=== PATIENT | female | born 1970 | race Caucasian/White ===

== ENCOUNTER 2017-02-07 19:03 | Emergency (ER) | payer SELFPAY ==
[~2017-02-07] VITALS: Ht 172.7 cm; Wt 92.0 kg
[~2017-02-07 19:03] MED LIST: CLON0.2T PO; COUM10TA PO; DICY1TAB26 PO; PROM25SU8 PO
[2017-02-07] MEDS ORDERED: IOHEXOL 350 MG/ML 10 ML VIAL (for RAD DIAG) IVCONTRAST ONE (19:04)
[2017-02-07 19:05] VITALS: BP 207/91; PULSE 87; RESP 18; TEMP 98.1; O2SAT 98
[2017-02-07] MEDS ORDERED: SODIUM CHLOR 0.9% 1000 ML INJ 1,000 ML IV SCH (20:22)
[2017-02-07] MEDS ORDERED: SODIUM CHLORIDE 0.9% FLUSH 10 ML FLUSH IV FLUSH PRN (20:30)
[2017-02-07] MEDS ORDERED: ONDANSETRON HCL 4 MG/2 ML VIAL IVP ONE (20:30)
[2017-02-07] MEDS ORDERED: MORPHINE SULFATE 4 MG/ML INJ IV PUSH ONE ×2 (20:30→22:15)
--- NOTE | 2017-02-07 20:30 | PD ---
HPI Chief Complaint: Abdominal Pain Time Seen by Provider: 20:18 Travel History International Travel<30 days: No Contact w/Intl Traveler<30days: No Traveled to known affect area: No History of Present Illness HPI 46-year-old female with PMH of CAD S/P stenting, HTN on Plavix presents to the ED for evaluation of sudden onset, 810, constant right lower quadrant abdominal pain. She endorses accompanying nausea and vomiting. She denies recent history of fever, chills, chest pain, palpitations, anorexia, changes in bowel habits, melena, hematochezia, dysuria, back pain. She endorses history of kidney stones but states this pain is not the same. She denies risk of , states that she had a tubal ligation. No treatment attempted at home. She does not currently have a primary care provider. PFSH Past Medical History Hx Anticoagulant Therapy: Yes Arthritis: No Blood Disorders: No Heart Rhythm Problems: No Cancer: No Cardiovascular Problems: Yes (htn, mi, cardiac stents x6) High Cholesterol: No Chest Pain: No Congestive Heart Failure: No Cerebrovascular Accident: No Diabetes: No Diminished Hearing: No Deep Vein Thrombosis: Yes (RT LEG) Endocrine: No Gastrointestinal Disorders: Yes GERD: Yes Genitourinary: No Headaches: Yes Hepatitis: No Hiatal Hernia: No Hypertension: Yes Immune Disorder: No Kidney Stones: Yes Musculoskeletal: No Neurologic: Yes Psychiatric: No Respiratory: No Migraines: No Myocardial Infarction: No Renal Failure: No Seizures: Yes (DUE TO HIGH FEVER) Thyroid Disease: No Ulcer: No ?: Not : 3 Para: 3 Tubal Ligation: Yes Past Surgical History Abdominal Surgery: Yes (SHUNT X 5) AICD: No Cardiac Surgery: No Cholecystectomy: Yes Ear Surgery: No Endocrine Surgery: No Eye Surgery: No Genitourinary Surgery: No Gynecologic Surgery: No Joint Replacement: No Neurologic Surgery: Yes (EXCISION BENIGN BRAIN TUMOUR WITH PERITONEAL SHUNT PLACEMANT AND REVISION) Oral Surgery: No Pacemaker: No Thoracic Surgery: No Other Surgery: Yes (2 STENTS PLACEMENT AND FILTER PER PT.) Social History Alcohol Use: No Tobacco Use: No (quit 2009) Substance Use: No Allergies-Medications (Allergen,Severity, Reaction): Coded Allergies: codeine (Verified Allergy, Severe, RASH, N/V, 02/07/17) phenobarbital (Verified Allergy, Severe, 02/07/17) Reported Meds & Prescriptions Reported Meds & Active Scripts Active Tramadol (Tramadol HCl) 50 Mg Tab 50 Mg PO Q8H PRN Zofran Odt (Ondansetron Odt) 4 Mg Tab 4 Mg SL Q8HR PRN Reported Aspirin 325 Mg Tab 325 Mg PO DAILY Norvasc (Amlodipine Besylate) 10 Mg Tab 10 Mg PO DAILY Lisinopril 40 Mg Tab 40 Mg PO DAILY Plavix (Clopidogrel Bisulfate) 75 Mg Tab 75 Mg PO DAILY Review of Systems Except as stated in HPI: all other systems reviewed are Neg Physical Exam Narrative GENERAL: Obese white female in no acute distress. SKIN: Focused skin assessment warm/dry. HEAD: Normocephalic. EYES: No scleral icterus. No injection or drainage. NECK: Supple, trachea midline. No JVD or lymphadenopathy. CARDIOVASCULAR: Regular rate and rhythm without murmurs, gallops, or rubs. RESPIRATORY: Breath sounds clear and equal bilaterally. No accessory muscle use. GASTROINTESTINAL: Abdomen soft, nondistended. Tender to palpation in the right lower quadrant and right flank. Hypoactive bowel sounds. MUSCULOSKELETAL: No cyanosis, or edema. BACK: Nontender without obvious deformity. No CVA tenderness. Data Data Last Documented VS Vital Signs Date Time Temp Pulse Resp B/P (MAP) Pulse Ox O2 Delivery O2 Flow Rate FiO2 02/07/17 20:38 18 99 Room Air 02/07/17 19:05 98.1 87 Orders Orders Complete Blood Count With Diff (02/07/17 20:22) Comprehensive Metabolic Panel (02/07/17 20:22) Lipase (02/07/17 20:22) Lactic Acid (02/07/17 20:22) Urinalysis - C+S If Indicated (02/07/17 20:22) Ct Abd/Pel W Iv Contrast(Rout) (02/07/17 20:22) Iv Access Insert/Monitor (02/07/17 20:22) Ecg Monitoring (02/07/17 20:22) Oximetry (02/07/17 20:22) Morphine Inj (Morphine Inj) (02/07/17 20:30) Ondansetron Inj (Zofran Inj) (02/07/17 20:30) Sodium Chlor 0.9% 1000 Ml Inj (Ns 1000 M (02/07/17 20:22) Sodium Chloride 0.9% Flush (Ns Flush) (02/07/17 20:30) Ed Urine Pregnancytest Poc (02/07/17 20:22) Iohexol 350 Inj (Omnipaque 350 Inj) (02/07/17 19:04) Morphine Inj (Morphine Inj) (02/07/17 22:15) Mandatory Outpatient Referral (02/07/17 22:04) Ed Discharge Order (02/07/17 22:19) Labs Laboratory Tests Test 02/07/17 20:40 White Blood Count 8.1 TH/MM3 Red Blood Count 4.74 MIL/MM3 Hemoglobin 14.0 GM/DL Hematocrit 42.0 % Mean Corpuscular Volume 88.4 FL Mean Corpuscular Hemoglobin 29.6 PG Mean Corpuscular Hemoglobin Concent 33.4 % Red Cell Distribution Width 13.9 % Platelet Count 258 TH/MM3 Mean Platelet Volume 7.6 FL Neutrophils (%) (Auto) 67.0 % Lymphocytes (%) (Auto) 22.7 % Monocytes (%) (Auto) 7.5 % Eosinophils (%) (Auto) 2.1 % Basophils (%) (Auto) 0.7 % Neutrophils # (Auto) 5.4 TH/MM3 Lymphocytes # (Auto) 1.8 TH/MM3 Monocytes # (Auto) 0.6 TH/MM3 Eosinophils # (Auto) 0.2 TH/MM3 Basophils # (Auto) 0.1 TH/MM3 CBC Comment DIFF FINAL Differential Comment Urine Color LIGHT-YELLOW Urine Turbidity HAZY Urine pH 7.0 Urine Specific [place] 1.014 Urine Protein NEG mg/dL Urine Glucose (UA) NEG mg/dL Urine Ketones NEG mg/dL Urine Occult Blood TRACE Urine Nitrite NEG Urine Bilirubin NEG Urine Urobilinogen LESS THAN 2.0 MG/DL Urine Leukocyte Esterase SMALL Urine RBC 2 /hpf Urine WBC 3 /hpf Urine Squamous Epithelial Cells 8 /hpf Urine Bacteria RARE /hpf Microscopic Urinalysis Comment CULT NOT INDICATED Blood Urea Nitrogen 12 MG/DL Creatinine 0.87 MG/DL Random Glucose 104 MG/DL Total Protein 7.2 GM/DL Albumin 3.6 GM/DL Calcium Level 8.4 MG/DL Alkaline Phosphatase 90 U/L Aspartate Amino Transf (AST/SGOT) 28 U/L Alanine Aminotransferase (ALT/SGPT) 89 U/L Total Bilirubin 0.4 MG/DL Sodium Level 137 MEQ/L Potassium Level 3.8 MEQ/L Chloride Level 103 MEQ/L Carbon Dioxide Level 26.8 MEQ/L Anion Gap 7 MEQ/L Estimat Glomerular Filtration Rate 69 ML/MIN Lactic Acid Level 1.1 mmol/L Lipase 94 U/L [facility] Medical Decision Making Medical Screen Exam Complete: Yes Emergency Medical Condition: Yes Differential Diagnosis Appendicitis versus nephroureterolithiasis versus cystitis versus bowel obstruction versus ovarian torsion versus ectopic versus other Narrative Course 46 -year-old female with PMH of CAD S/P stenting, HTN on Plavix presents to the ED for evaluation of sudden onset, 8/10, constant right lower quadrant abdominal pain with accompanying nausea and vomiting. She denies recent history of fever, chills, chest pain, palpitations, anorexia, changes in bowel habits, melena, hematochezia, dysuria, back pain, risk of . She endorses history of kidney stones but states this pain is not the same. No PCP. Vitals reviewed. Patient is hypertensive on presentation. Physical exam reveals an obese white female in no acute distress. She does have tenderness to palpation in the right lower quadrant and right flank but the exam is otherwise unremarkable. IV was established. Patient was administered 4 mg morphine, 4 mg Zofran, 1 L normal saline IV. CBC: No leukocytosis or anemia. CMP: No concerning abnormalities Lipase: 94 Lactic acid: 1.4 UA: No culture indicated ED UPT: negative CT abdomen and pelvis: Fluid or cystic mass of the endometrial canal of uncertain etiology per radiology read. Discussed the results of the workup with the patient. She states that she had a similar problem approximately 6 weeks ago and underwent a D&C. She states that "my cervix is narrow." Unsure if this is the source of her abdominal pain , she said she did not have symptoms like this previously. We'll prescribe a short course of antiemetics and tramadol. I warned the patient this could be a very early appendicitis and that she should return to the ED should her symptoms worsen, especially including fever. States she does not have insurance or a physician. A mandatory outpatient consult was placed with gynecology. I informed her of the mandatory consult process. Patient indicated understanding of instructions and is agreeable care plan. She is stable and discharged home. Diagnosis Primary Impression: Abdominal pain Qualified Codes: R10.31 - Right lower quadrant pain Referrals: Didi Pillai MD Patient Instructions: Abdominal Pain (ED), General Instructions Additional Instructions: Rest, hydrate. Take pain and nausea medications as prescribed. Do not drive while taking pain medications. A cystic mass has been found in your uterus. This will need follow-up by the web master. A mandatory outpatient consult has been placed.. You can expect a phone call from either the doctor's office or the hospital in a few days to arrange an appointment. Return to the ED for worsening symptoms or any urgent or emergent medical condition. Med/Other Pt SpecificInfo: Prescription(s) given Scripts Tramadol (Tramadol) 50 Mg Tab 50 MG PO Q8H Y for PAIN, #10 TAB 0 Refills Prov: Alexander Ontiveros MD 02/07/17 Ondansetron Odt (Zofran Odt) 4 Mg Tab 4 MG SL Q8HR Y for Nausea/Vomiting, #15 TAB 0 Refills Prov: Alexander Ontiveros MD 02/07/17 Disposition: 01 DISCHARGE HOME Condition: Stable Jes Sims Feb 07, 2017 20:30
[2017-02-07 20:38] VITALS: RESP 18; O2SAT 99
[2017-02-07 20:47] LABS: AUTOMATED NEUTROPHIL # 5.4 TH/MM3 (1.8-7.7); BASOPHIL # 0.1 TH/MM3 (0-0.2); BASOPHIL % 0.7 % (0.0-2.0); EOSINOPHIL # 0.2 TH/MM3 (0-0.4); EOSINOPHIL % 2.1 % (0.0-4.0); HEMO FLAGS DIFF FINAL; LYMPH % 22.7 % (9.0-44.0); LYMPHOCYTE # 1.8 TH/MM3 (1.0-4.8); MEAN CELL VOLUME 88.4 FL (80.0-100.0); MEAN CORPUSCULAR HEMOGLOBIN 29.6 PG (27.0-34.0); MEAN CORPUSCULAR HGB CONC 33.4 % (32.0-36.0); MONO % 7.5 % (0.0-8.0); PLATELET COUNT 258 TH/MM3 (150-450); RED BLOOD COUNT 4.74 MIL/MM3 (4.00-5.30); RED CELL DISTRIBUTION WIDTH 13.9 % (11.6-17.2); WHITE BLOOD COUNT 8.1 TH/MM3 (4.0-11.0)
[2017-02-07 20:49] LABS: BACTERIA, URINE RARE /hpf; BLOOD, URINE TRACE (NEG); GLUCOSE,URINE NEG (NEG); KETONE, URINE NEG (NEG); NITRITE,URINE NEG (NEG); SQUAMOUS EPITHELIAL CELL URINE 8 /hpf (0-5); URINE COLOR LIGHT-YELLOW (YELLW/STRAW)
[2017-02-07 20:50] LABS: COMMENT (UR) CULT NOT INDICATED; CULTURE IF INDICATED CULT NOT INDICATED
[2017-02-07 21:18] LABS: ANION GAP 7 MEQ/L (5-15); AST (GOT) 28 U/L (15-37); BICARBONATE 26.8 MEQ/L (21.0-32.0); BLOOD UREA NITROGEN 12 MG/DL (7-18); CHLORIDE 103 MEQ/L (98-107); GLOMERULAR FILTRATION RATE 69 ML/MIN (>89); POTASSIUM 3.8 MEQ/L (3.5-5.1); SODIUM (NA) 137 MEQ/L (136-145)
[2017-02-07 21:19] LABS: ALT (GPT) 89 U/L (10-53)
[2017-02-07 21:21] LABS: ALKALINE PHOSPHATASE 90 U/L (45-117); TOTAL BILIRUBIN ADULT 0.4 MG/DL (0.2-1.0)
--- NOTE | 2017-02-07 21:39 | RADRPT ---
EXAM DATE/TIME: 02/07/2017 21:22 [facility] COMPARISON: No previous studies available for comparison. INDICATIONS : Abdominal pain X 2 hours. IV CONTRAST: 96 cc Omnipaque 350 (iohexol) IV ORAL CONTRAST: No oral contrast ingested. RADIATION DOSE: 18.64 CTDIvol (mGy) MEDICAL HISTORY : Cardiovascular disease. Deep venous thrombosis. Hypertension.Seizure SURGICAL HISTORY : Cholecystectomy. Tubal ligation. ENCOUNTER: Initial ACUITY: 1 day PAIN SCALE: 7/10 LOCATION: Right lower quadrant abdomen TECHNIQUE: Volumetric scanning of the abdomen and pelvis was performed. Using automated exposure control and ad justment of the mA and/or kV according to patient size, radiation dose was kept as low as reasonably achievable to obtain optimal diagnostic quality images. DICOM format image data is available electro nically for review and comparison. FINDINGS: LOWER LUNGS: The visualized lower lungs are clear. LIVER: The liver is diffusely low in density. No mass or ductal dilatation. Portal vein is patent. Gallbladd er is surgically absent. SPLEEN: Normal size without lesion. PANCREAS: Within normal limits. KIDNEYS: Normal in size and shape. There is no mass or hydronephrosis. There is a 4 mm nonobstructing right r enal stone. ADRENAL GLANDS: Within normal limits. VASCULAR: There is no aortic aneurysm. BOWEL/MESENTERY: The stomach, small bowel, and colon demonstrate no acute abnormality. There is no free intraperitone al air or fluid. ABDOMINAL WALL: Within normal limits. RETROPERITONEUM: There is no lymphadenopathy. BLADDER: No wall thickening or mass. REPRODUCTIVE: There is either fluid within the endometrial canal or a cystic lesion associated with endometrial can al. This measures 5.6 x 6.6 x 4.2 cm. INGUINAL: There is no lymphadenopathy or hernia. MUSCULOSKELETAL: Within normal limits for patient age. CONCLUSION: 1. Either fluid distending the endometrial canal or a cystic lesion associated with endometrial canal . This measures 6.6 x 5.6 x 4.2 cm. 2. Nonobstructing right renal stone. 3. Hepatic steatosis. 4. Prior cholecystectomy. 5. IVC filter. Rick Fraser Jr., MD on February 07, 2017 at 21:34 Board Certified Radiologist. This report was verified electronically.
[2017-02-07] MEDS ORDERED: ZOFR4TAB3 SL (22:12)
[2017-02-07] MEDS ORDERED: TRAM50TA PO (22:12)
[2017-02-07] MEDS ORDERED: LISI40TA PO (22:13)
[2017-02-07] MEDS ORDERED: AMLO10 PO (22:13)
[2017-02-07] MEDS ORDERED: ASPI-183 PO (22:13)
[2017-02-07] MEDS ORDERED: PLAV75TA29 PO (22:13)
[2017-02-07 22:30] VITALS: BP 179/84; PULSE 85; RESP 18; O2SAT 99
--- NOTE | 2017-02-07 22:32 | PD ---
Data Data Last Documented VS Vital Signs Date Time Temp Pulse Resp B/P (MAP) Pulse Ox O2 Delivery O2 Flow Rate FiO2 02/07/17 20:38 18 99 Room Air 02/07/17 19:05 98.1 87 Orders Orders Complete Blood Count With Diff (02/07/17 20:22) Comprehensive Metabolic Panel (02/07/17 20:22) Lipase (02/07/17 20:22) Lactic Acid (02/07/17 20:22) Urinalysis - C+S If Indicated (02/07/17 20:22) Ct Abd/Pel W Iv Contrast(Rout) (02/07/17 20:22) Iv Access Insert/Monitor (02/07/17:) Ecg Monitoring (02/07/17:) Oximetry (02/07/17:22) Morphine Inj (Morphine Inj) (02/07/17 20:30) Ondansetron Inj (Zofran Inj) (02/07/17 20:30) Sodium Chlor 0.9% 1000 Ml Inj (Ns 1000 M (02/07/17 20:22) Sodium Chloride 0.9% Flush (Ns Flush) (02/07/17 20:30) Ed Urine Pregnancytest Poc (02/07/17 20:22) Iohexol 350 Inj (Omnipaque 350 Inj) (02/07/17 19:04) Morphine Inj (Morphine Inj) (02/07/17 22:15) Mandatory Outpatient Referral (02/07/17 22:04) Ed Discharge Order (02/07/17 22:19) Labs Laboratory Tests Test 02/07/17 20:40 White Blood Count 8.1 TH/MM3 Red Blood Count 4.74 MIL/MM3 Hemoglobin 14.0 GM/DL Hematocrit 42.0 % Mean Corpuscular Volume 88.4 FL Mean Corpuscular Hemoglobin 29.6 PG Mean Corpuscular Hemoglobin Concent 33.4 % Red Cell Distribution Width 13.9 % Platelet Count 258 TH/MM3 Mean Platelet Volume 7.6 FL Neutrophils (%) (Auto) 67.0 % Lymphocytes (%) (Auto) 22.7 % Monocytes (%) (Auto) 7.5 % Eosinophils (%) (Auto) 2.1 % Basophils (%) (Auto) 0.7 % Neutrophils # (Auto) 5.4 TH/MM3 Lymphocytes # (Auto) 1.8 TH/MM3 Monocytes # (Auto) 0.6 TH/MM3 Eosinophils # (Auto) 0.2 TH/MM3 Basophils # (Auto) 0.1 TH/MM3 CBC Comment DIFF FINAL Differential Comment Urine Color LIGHT-YELLOW Urine Turbidity HAZY Urine pH 7.0 Urine Specific [place] 1.014 Urine Protein NEG mg/dL Urine Glucose (UA) NEG mg/dL Urine Ketones NEG mg/dL Urine Occult Blood TRACE Urine Nitrite NEG Urine Bilirubin NEG Urine Urobilinogen LESS THAN 2.0 MG/DL Urine Leukocyte Esterase SMALL Urine RBC 2 /hpf Urine WBC 3 /hpf Urine Squamous Epithelial Cells 8 /hpf Urine Bacteria RARE /hpf Microscopic Urinalysis Comment CULT NOT INDICATED Blood Urea Nitrogen 12 MG/DL Creatinine 0.87 MG/DL Random Glucose 104 MG/DL Total Protein 7.2 GM/DL Albumin 3.6 GM/DL Calcium Level 8.4 MG/DL Alkaline Phosphatase 90 U/L Aspartate Amino Transf (AST/SGOT) 28 U/L Alanine Aminotransferase (ALT/SGPT) 89 U/L Total Bilirubin 0.4 MG/DL Sodium Level 137 MEQ/L Potassium Level 3.8 MEQ/L Chloride Level 103 MEQ/L Carbon Dioxide Level 26.8 MEQ/L Anion Gap 7 MEQ/L Estimat Glomerular Filtration Rate 69 ML/MIN Lactic Acid Level 1.1 mmol/L Lipase 94 U/L MDM Supervised Visit with MONA: Yes Narrative Course The history, exam, and medical decision-making in the associated mid-level provider note were completed with my assistance. I reviewed and agree with the findings presented. I attest that I had a [id number] encounter with the patient on the same day, and personally performed and documented my assessment and findings in the medical record. *My assessment and Findings: 38 year-old woman of right lower quadrant abdominal pain times about an hour. She looks well. She is a benign exam. CT scan shows fluid-filled cystic structure in the endometrium. She reportedly had a D&C month or 2 ago for similar complaints. She looks well. She can follow-up with an outpatient with her VETERINARY TECHNICIAN INSTRUCTOR or with the VETERINARY TECHNICIAN INSTRUCTOR on-call. Diagnosis Primary Impression: Abdominal pain Qualified Codes: R10.31 - Right lower quadrant pain Referrals: Didi Pillai MD Patient Instructions: General Instructions, Abdominal Pain (ED) Departure Forms: Tests/Procedures Additional Instruction: Rest, hydrate. Take pain and nausea medications as prescribed. Do not drive while taking pain medications. A cystic mass has been found in your uterus. This will need follow-up by the engineering lecturer. A mandatory outpatient consult has been placed.. You can expect a phone call from either the doctor's office or the hospital in a few days to arrange an appointment. Return to the ED for worsening symptoms or any urgent or emergent medical condition. Scripts Tramadol (Tramadol) 50 Mg Tab 50 MG PO Q8H Y for PAIN, #10 TAB 0 Refills Prov: Alexander Ontiveros MD 02/07/17 Ondansetron Odt (Zofran Odt) 4 Mg Tab 4 MG SL Q8HR Y for Nausea/Vomiting, #15 TAB 0 Refills Prov: Alexander Ontiveros MD 02/07/17 Disposition: 01 DISCHARGE HOME Condition: Stable Alexander Ontiveros MD Feb 07, 2017 22:32
== END 2017-02-07 23:40 | disposition home or self-care (01) ==
LOC: NEPC 19:03
DX: N20.0 Calculus of kidney (principal); K76.0 Fatty (change of) liver, not elsewhere classified; I10 Essential (primary) hypertension; K21.9 Gastro-esophageal reflux disease without esophagitis; R56.9 Unspecified convulsions; I25.2 Old myocardial infarction; Z79.02 Long term (current) use of antithrombotics/antiplatelets; Z86.718 Personal history of other venous thrombosis and embolism; Z79.82 Long term (current) use of aspirin
CPT/HCPCS: 74177; 80053; 81001; 83605; 83690; 84703; 85025; 96361; 96374; 96375; 96376; 99285; J2270; J2405; J7030; Q9967

== ENCOUNTER 2017-02-21 23:56 | Emergency (ER) | payer SELFPAY ==
[~2017-02-21] VITALS: Ht 172.7 cm; Wt 90.0 kg
[~2017-02-21 23:56] MED LIST changes: +AMLO10 PO; +ASPI-183 PO; -CLON0.2T PO; -COUM10TA PO; -DICY1TAB26 PO; +LISI40TA PO; +PLAV75TA29 PO; -PROM25SU8 PO; +TRAM50TA PO; +ZOFR4TAB3 SL
[2017-02-21 23:57] VITALS: BP 254/126; PULSE 78; RESP 16; TEMP 98; O2SAT 100
[2017-02-22] MEDS ORDERED: ONDANSETRON HCL 4 MG/2 ML VIAL IVP ONE (00:15)
[2017-02-22] MEDS ORDERED: SODIUM CHLORIDE 0.9% FLUSH 10 ML FLUSH IV FLUSH PRN (00:15)
[2017-02-22] MEDS ORDERED: MORPHINE SULFATE 4 MG/ML INJ IV PUSH ONE (00:15)
[2017-02-22 00:37] VITALS: BP 225/106; PULSE 70; RESP 24; TEMP 97.7; O2SAT 98
[2017-02-22 00:53] LABS: BASOPHIL # 0.1 TH/MM3 (0-0.2); BASOPHIL % 0.6 % (0.0-2.0); EOSINOPHIL # 0.3 TH/MM3 (0-0.4); EOSINOPHIL % 2.9 % (0.0-4.0); HEMATOCRIT 43.2 % (35.0-46.0); HEMO FLAGS DIFF FINAL; LYMPH % 21.5 % (9.0-44.0); LYMPHOCYTE # 1.9 TH/MM3 (1.0-4.8); MEAN CELL VOLUME 87.4 FL (80.0-100.0); MEAN CORPUSCULAR HEMOGLOBIN 29.1 PG (27.0-34.0); MEAN CORPUSCULAR HGB CONC 33.3 % (32.0-36.0); MONO % 7.2 % (0.0-8.0); NEUT % 67.8 % (16.0-70.0); PLATELET COUNT 305 TH/MM3 (150-450); RED BLOOD COUNT 4.94 MIL/MM3 (4.00-5.30); RED CELL DISTRIBUTION WIDTH 13.4 % (11.6-17.2); WHITE BLOOD COUNT 8.8 TH/MM3 (4.0-11.0)
[2017-02-22 01:17] LABS: ALKALINE PHOSPHATASE 103 U/L (45-117); BETA HCG QUANT LESS THAN 1 MIU/ML (0-5); TOTAL BILIRUBIN ADULT 0.3 MG/DL (0.2-1.0)
[2017-02-22 01:24] LABS: BACTERIA, URINE RARE /hpf; BLOOD, URINE SMALL (NEG); GLUCOSE,URINE NEG (NEG); KETONE, URINE NEG (NEG); MUCUS URINE FEW /lpf (OCC); NITRITE,URINE NEG (NEG); SQUAMOUS EPITHELIAL CELL URINE 11 /hpf (0-5); URINE COLOR LIGHT-YELLOW (YELLW/STRAW)
[2017-02-22 01:25] LABS: COMMENT (UR) CULT NOT INDICATED; CULTURE IF INDICATED CULT NOT INDICATED
[2017-02-22 01:27] LABS: ALT (GPT) 57 U/L (10-53); ANION GAP 9 MEQ/L (5-15); AST (GOT) 18 U/L (15-37); BICARBONATE 26.1 MEQ/L (21.0-32.0); BLOOD UREA NITROGEN 15 MG/DL (7-18); CHLORIDE 104 MEQ/L (98-107); GLOMERULAR FILTRATION RATE 74 ML/MIN (>89); POTASSIUM 3.6 MEQ/L (3.5-5.1); SODIUM (NA) 139 MEQ/L (136-145)
[2017-02-22 01:34] LABS: APTT (PATIENT) 23.8 SEC (24.3-30.1); INTERNATIONAL NORMALIZED RATIO 0.9 RATIO; PROTHROMBIN TIME - PATIENT 10.2 SEC (9.8-11.6)
--- NOTE | 2017-02-22 01:47 | PD ---
HPI Chief Complaint: Abdominal Pain Time Seen by Provider: 00:02 Travel History International Travel<30 days: No Contact w/Intl Traveler<30days: No Traveled to known affect area: No History of Present Illness HPI patient's a 46-year-old female presents emergency department for evaluation of sudden onset right lower quadrant abdominal pain started approximately an hour prior to arrival. States is never happened to her before, mild nausea no vomiting. No vaginal bleeding or vaginal discharge. Denies any surgeries in the past. States the pain is cramping, right lower quadrant without radiation, no migration of the pain, which is moderate to severe. PFSH Past Medical History Hx Anticoagulant Therapy: Yes Arthritis: No Blood Disorders: No Heart Rhythm Problems: No Cancer: No Cardiovascular Problems: Yes (htn, mi, cardiac stents x6) High Cholesterol: No Chest Pain: No Congestive Heart Failure: No Cerebrovascular Accident: No Diabetes: No Diminished Hearing: No Deep Vein Thrombosis: Yes (RT LEG) Endocrine: No Gastrointestinal Disorders: Yes GERD: Yes Genitourinary: No Headaches: Yes Hepatitis: No Hiatal Hernia: No Hypertension: Yes Immune Disorder: No Kidney Stones: Yes Musculoskeletal: No Neurologic: Yes Psychiatric: No Respiratory: No Migraines: No Myocardial Infarction: No Renal Failure: No Seizures: Yes (DUE TO HIGH FEVER) Thyroid Disease: No Ulcer: No Tetanus Vaccination: < 5 Years Influenza Vaccination: No ?: Not : 3 Para: 3 Tubal Ligation: Yes Past Surgical History Abdominal Surgery: Yes (SHUNT X 5) AICD: No Cardiac Surgery: No Cholecystectomy: Yes Ear Surgery: No Endocrine Surgery: No Eye Surgery: No Genitourinary Surgery: No Gynecologic Surgery: No Joint Replacement: No Neurologic Surgery: Yes (EXCISION BENIGN BRAIN TUMOUR WITH PERITONEAL SHUNT PLACEMANT AND REVISION) Oral Surgery: No Pacemaker: No Thoracic Surgery: No Other Surgery: Yes (2 STENTS PLACEMENT AND FILTER PER PT.) Social History Alcohol Use: No Tobacco Use: No (quit 2009) Substance Use: No Allergies-Medications (Allergen,Severity, Reaction): Coded Allergies: codeine (Verified Allergy, Severe, RASH, N/V, 02/07/17) phenobarbital (Verified Allergy, Severe, 02/07/17) Reported Meds & Prescriptions Reported Meds & Active Scripts Active Reported Aspirin 325 Mg Tab 325 Mg PO DAILY Norvasc (Amlodipine Besylate) 10 Mg Tab 10 Mg PO DAILY Lisinopril 40 Mg Tab 40 Mg PO DAILY Plavix (Clopidogrel Bisulfate) 75 Mg Tab 75 Mg PO DAILY Review of Systems Except as stated in HPI: all other systems reviewed are Neg Physical Exam Narrative GENERAL: [Uncomfortable appearing on exam but later seen sitting upright in a stretcher in no distress playing in a foam. Well-developed well-nourished. SKIN: Focused skin assessment warm/dry. HEAD: Atraumatic. Normocephalic. EYES: Pupils equal and round. No scleral icterus. No injection or drainage. ENT: No nasal bleeding or discharge. Mucous membranes pink and moist. NECK: Trachea midline. No JVD. CARDIOVASCULAR: Regular rate and rhythm. No murmur appreciated. RESPIRATORY: No accessory muscle use. Clear to auscultation. Breath sounds equal bilaterally. GASTROINTESTINAL: Abdomen soft but obese., moderately tender in the right lower quadrant at McBurney's point. Psoas and obturator signs negative. No rebound no percussive tenderness. Nondistended. Hepatic and splenic margins not palpable. MUSCULOSKELETAL: No obvious deformities. No clubbing. No cyanosis. No edema. NEUROLOGICAL: Awake and alert. No obvious cranial nerve deficits. Motor grossly within normal limits. Normal speech. PSYCHIATRIC: Appropriate mood and affect; insight and judgment normal. Data Data Last Documented VS Vital Signs Date Time Temp Pulse Resp B/P (MAP) Pulse Ox O2 Delivery O2 Flow Rate FiO2 02/22/17 03:54 02/22/17 03:04 75 20 97 Room Air 02/22/17 00:37 97.7 Orders Orders Beta Hcg (Quant/Titer) (02/22/17 00:07) Complete Blood Count With Diff (02/22/17 00:07) Comprehensive Metabolic Panel (02/22/17 00:07) Lipase (02/22/17 00:07) Prothrombin Time / Inr (Pt) (02/22/17 00:07) Act Partial Throm Time (Ptt) (02/22/17 00:07) Urinalysis - C+S If Indicated (02/22/17 00:07) Ct Abd/Pel W Iv Contrast(Rout) (02/22/17 00:07) Iv Access Insert/Monitor (02/22/17 00:07) Ecg Monitoring (02/22/17 00:07) Oximetry (02/22/17 00:07) Morphine Inj (Morphine Inj) (02/22/17 00:15) Ondansetron Inj (Zofran Inj) (02/22/17 00:15) Sodium Chloride 0.9% Flush (Ns Flush) (02/22/17 00:15) Iohexol 350 Inj (Omnipaque 350 Inj) (02/22/17 01:53) Ketorolac Inj (Toradol Inj) (02/22/17 02:15) Hydromorphone Pf Inj (Dilaudid Pf Inj) (02/22/17 02:45) Mandatory Outpatient Referral (02/22/17 03:12) Ed Discharge Order (02/22/17 03:13) Labs Laboratory Tests Test 02/22/17 00:30 02/22/17 00:38 White Blood Count 8.8 TH/MM3 Red Blood Count 4.94 MIL/MM3 Hemoglobin 14.4 GM/DL Hematocrit 43.2 % Mean Corpuscular Volume 87.4 FL Mean Corpuscular Hemoglobin 29.1 PG Mean Corpuscular Hemoglobin Concent 33.3 % Red Cell Distribution Width 13.4 % Platelet Count 305 TH/MM3 Mean Platelet Volume 7.5 FL Neutrophils (%) (Auto) 67.8 % Lymphocytes (%) (Auto) 21.5 % Monocytes (%) (Auto) 7.2 % Eosinophils (%) (Auto) 2.9 % Basophils (%) (Auto) 0.6 % Neutrophils # (Auto) 6.0 TH/MM3 Lymphocytes # (Auto) 1.9 TH/MM3 Monocytes # (Auto) 0.6 TH/MM3 Eosinophils # (Auto) 0.3 TH/MM3 Basophils # (Auto) 0.1 TH/MM3 CBC Comment DIFF FINAL Differential Comment Blood Urea Nitrogen 15 MG/DL Creatinine 0.82 MG/DL Random Glucose 140 MG/DL Total Protein 7.7 GM/DL Albumin 3.9 GM/DL Calcium Level 8.6 MG/DL Alkaline Phosphatase 103 U/L Aspartate Amino Transf (AST/SGOT) 18 U/L Alanine Aminotransferase (ALT/SGPT) 57 U/L Total Bilirubin 0.3 MG/DL Sodium Level 139 MEQ/L Potassium Level 3.6 MEQ/L Chloride Level 104 MEQ/L Carbon Dioxide Level 26.1 MEQ/L Anion Gap 9 MEQ/L Estimat Glomerular Filtration Rate 74 ML/MIN Lipase 148 U/L Human Chorionic Gonadotropin, Quant LESS THAN 1 MIU/ML Prothrombin Time 10.2 SEC Prothromb Time International Ratio 0.9 RATIO Activated Partial Thromboplast Time 23.8 SEC Urine Color LIGHT-YELLOW Urine Turbidity HAZY Urine pH 7.0 Urine Specific [place] 1.008 Urine Protein NEG mg/dL Urine Glucose (UA) NEG mg/dL Urine Ketones NEG mg/dL Urine Occult Blood SMALL Urine Nitrite NEG Urine Bilirubin NEG Urine Urobilinogen LESS THAN 2.0 MG/DL Urine Leukocyte Esterase MOD Urine RBC 2 /hpf Urine WBC 3 /hpf Urine Squamous Epithelial Cells 11 /hpf Urine Amorphous Sediment RARE Urine Bacteria RARE /hpf Urine Mucus FEW /lpf Microscopic Urinalysis Comment CULT NOT INDICATED MDM Medical Decision Making Medical Screen Exam Complete: Yes Emergency Medical Condition: Yes Differential Diagnosis Appendicitis, constipation, UTI, nephrolithiasis. Narrative Course Patient roomed in emergency department, intermittent periods of appearing in pain followed by periods where she is sitting upright in a stretcher playing on the phone. Patient was given a dose of morphine followed by dose of Toradol and ultimately a dose of Dilaudid. She appears comfortable same related to the bathroom multiple times. CAT scan of her abdomen does show concern for malignancy of her uterus. This is unchanged from her previous CAT scan here. Discussed the results with her and she states she does have an appointment with an RECREATIONAL LEADER coming up. She is feeling better. She is stable for discharge this time is no emergent workup is indicated. At this time I'm disinclined to prescribe her pain medicine to go home with because looking at her [employer] she has received in the past month at least 6 different pain scripts from 6 different hospitals in the [facility]. At this time she needs to follow- up with a primary care physician for further pain management. She is stable for discharge. Diagnosis Primary Impression: Uterine mass Additional Impression: Abdominal pain Referrals: Denise Og MD Med/Other Pt SpecificInfo: Prescription(s) given Disposition: DISCHARGE HOME Condition: Stable Rudy Leon MD Feb 22, 2017 01:47
[2017-02-22] MEDS ORDERED: IOHEXOL 350 MG/ML 10 ML VIAL (for RAD DIAG) IVCONTRAST ONE (01:53)
--- NOTE | 2017-02-22 02:13 | RADRPT ---
EXAM DATE/TIME: 02/22/2017 01:43 [facility] COMPARISON: CT ABDOMEN & PELVIS W CONTRAST, February 07, 2017, 21:22. INDICATIONS : Abdominal pain. IV CONTRAST: 97 cc Omnipaque 350 (iohexol) IV ORAL CONTRAST: No oral contrast ingested. RADIATION DOSE: 20.20 CTDIvol (mGy) MEDICAL HISTORY : Myocardial infarction. Hypertension. Gastroesophageal reflux disease. DVT, Seizures SURGICAL HISTORY : Cholecystectomy. benign brain tumor removed ENCOUNTER: Initial ACUITY: 1 day PAIN SCALE: 7/10 LOCATION: abdomen TECHNIQUE: Volumetric scanning of the abdomen and pelvis was performed. Using automated exposure control and ad justment of the mA and/or kV according to patient size, radiation dose was kept as low as reasonably achievable to obtain optimal diagnostic quality images. DICOM format image data is available electro nically for review and comparison. FINDINGS: LOWER LUNGS: The visualized lower lungs are clear. LIVER: Homogeneous density without lesion. There is no dilation of the biliary tree. Status post cholecyste ctomy. There is a moderate hepatic steatosis. SPLEEN: Normal size without lesion. PANCREAS: Within normal limits. KIDNEYS: Normal in size and shape. There is no mass or hydronephrosis. There is a stable 5 mm right renal yuriy culus. There is a smaller nonobstructing 3 mm left renal calculus as well. ADRENAL GLANDS: Within normal limits. VASCULAR: There is no aortic aneurysm. An inferior vena caval filter is again noted. BOWEL/MESENTERY: The stomach, small bowel, and colon demonstrate no acute abnormality. There is no free intraperitone al air or fluid. ABDOMINAL WALL: Within normal limits. RETROPERITONEUM: There is no lymphadenopathy. BLADDER: No wall thickening or mass. REPRODUCTIVE: The uterus is again noted to contain a large central cystic area measuring up to approximately 6.7 x 5.6 cm in diameter. There are dense the enhancing area surrounding this. INGUINAL: There is no lymphadenopathy or hernia. MUSCULOSKELETAL: Within normal limits for patient age. CONCLUSION: 1. The uterus remains abnormal in appearance as noted on the prior recent CT with large central fluid density mass or distended endometrial canal again noted. This is not significantly changed. There ar e areas of enhancement surrounding this area. This could represent endometrial carcinoma. 2. Moderate hepatic steatosis again noted. 3. Small nonobstructing bilateral renal calculi. 4. Status post cholecystectomy. Jose Jack MD on February 22, 2017 at 2:07 Board Certified Radiologist. This report was verified electronically.
[2017-02-22] MEDS ORDERED: KETOROLAC TROMETHAMINE 30 MG/ML (IVP) VIAL IV PUSH ONE (02:15)
[2017-02-22] MEDS ORDERED: HYDROmorphone HCL PF 1 MG/ML VIAL IV PUSH ONE (02:45)
[2017-02-22 03:04] VITALS: BP 156/83; PULSE 75; RESP 20; O2SAT 97
== END 2017-02-22 04:26 | disposition home or self-care (01) ==
LOC: NEPC 23:56
DX: R22.9 Localized swelling, mass and lump, unspecified (principal); R10.31 Right lower quadrant pain; K76.0 Fatty (change of) liver, not elsewhere classified; N20.0 Calculus of kidney; I10 Essential (primary) hypertension; K21.9 Gastro-esophageal reflux disease without esophagitis; R56.9 Unspecified convulsions; Z86.718 Personal history of other venous thrombosis and embolism; Z87.442 Personal history of urinary calculi
CPT/HCPCS: 74177; 80053; 81001; 83690; 84702; 85025; 85610; 85730; 96374; 96375; 99285; J1170; J1885; J2270; J2405; Q9967

== ENCOUNTER 2017-05-23 00:05 | Emergency (ER) | payer SELFPAY ==
[~2017-05-23] VITALS: Ht 170.2 cm; Wt 85.0 kg
[~2017-05-23 00:05] MED LIST changes: -TRAM50TA PO; -ZOFR4TAB3 SL
[2017-05-23 00:08] VITALS: BP 226/117; PULSE 68; RESP 16; TEMP 97.6; O2SAT 98
[2017-05-23 00:57] VITALS: BP 187/113; PULSE 65; RESP 16; O2SAT 98
[2017-05-23] MEDS ORDERED: KETOROLAC TROMETHAMINE 30 MG/ML (IVP) VIAL IV PUSH ONE (02:30)
[2017-05-23] MEDS ORDERED: SODIUM CHLOR 0.9% 1000 ML INJ 1,000 ML IV ONE (02:30)
[2017-05-23] MEDS ORDERED: METOCLOPRAMIDE INJ 10 MG in SODIUM CHLORIDE 0.9% INJ 50 ML IV ONE (02:30)
[2017-05-23] MEDS ORDERED: diphenhydrAMINE HCL 50 MG/ML VIAL IV PUSH ONE (02:30)
--- NOTE | 2017-05-23 02:44 | PD ---
HPI Chief Complaint: Headache Time Seen by Provider: 01:04 Travel History International Travel<30 days: No Contact w/Intl Traveler<30days: No Traveled to known affect area: No History of Present Illness HPI Patient is a 46-year-old female she has had for a day now a headache in her frontal sinus area. She took medications [id number] did not relieve her pain she was getting very dizzy she actually fell could not catch herself and landed on her left shoulder she is coming in with continuing headache as well as left shoulder pain from a fall. She denies hitting her head. However past medical history is that she had some sort of frontal brain tumor that was resected in 2005 apparently they did an ocular orbital approach and with complete resection. However she has never had a follow-up MRI nor CAT scan. Patient is here in the ER with headache and shoulder pain not relieved by over- the-counter medications she has not seen another doctor for this complaint PFSH Past Medical History Hx Anticoagulant Therapy: Yes Arthritis: No Blood Disorders: No Heart Rhythm Problems: No Cancer: No Cardiovascular Problems: Yes (htn, mi, cardiac stents x6) High Cholesterol: No Chest Pain: No Congestive Heart Failure: No Cerebrovascular Accident: No Diabetes: No Diminished Hearing: No Deep Vein Thrombosis: Yes (RT LEG) Endocrine: No Gastrointestinal Disorders: Yes GERD: Yes Genitourinary: No Headaches: Yes Hepatitis: No Hiatal Hernia: No Hypertension: Yes Immune Disorder: No Kidney Stones: Yes Musculoskeletal: No Neurologic: Yes Psychiatric: No Reproductive: No Respiratory: No Immunizations Current: Yes Migraines: No Myocardial Infarction: No Renal Failure: No Seizures: Yes (DUE TO HIGH FEVER) Thyroid Disease: No Ulcer: No Tetanus Vaccination: > 5 Years Influenza Vaccination: No ?: Not : 3 Para: 3 Tubal Ligation: Yes Past Surgical History Abdominal Surgery: Yes (SHUNT X 5) AICD: No Cardiac Surgery: No Cholecystectomy: Yes Ear Surgery: No Endocrine Surgery: No Eye Surgery: No Genitourinary Surgery: No Gynecologic Surgery: No Hysterectomy: Yes Insulin Pump: No Joint Replacement: No Neurologic Surgery: Yes (EXCISION BENIGN BRAIN TUMOUR WITH PERITONEAL SHUNT PLACEMANT AND REVISION) Oral Surgery: No Pacemaker: No Thoracic Surgery: No Other Surgery: Yes (2 STENTS PLACEMENT AND FILTER PER PT.) Social History Alcohol Use: No Tobacco Use: No (quit 2009) Substance Use: No Allergies-Medications (Allergen,Severity, Reaction): Coded Allergies: codeine (Verified Allergy, Severe, RASH, N/V, 05/23/17) phenobarbital (Verified Allergy, Severe, 05/23/17) Reported Meds & Prescriptions Reported Meds & Active Scripts Active Butalbital-Acetaminophen 50-325 Mg Tab 1-2 Tab PO Q4HR PRN Do not exceed 6 tablets per day. Reported Aspirin 325 Mg Tab 325 Mg PO DAILY Norvasc (Amlodipine Besylate) 10 Mg Tab 10 Mg PO DAILY Lisinopril 40 Mg Tab 40 Mg PO DAILY Plavix (Clopidogrel Bisulfate) 75 Mg Tab 75 Mg PO DAILY Review of Systems Except as stated in HPI: all other systems reviewed are Neg HENT: Positive: Headaches Musculoskeletal: Positive: Arthralgias (left shoulder) Physical Exam Narrative GENERAL: pt has non toxic appearance SKIN: Warm and dry. HEAD: Atraumatic. Normocephalic. EYES: Pupils equal and round. No scleral icterus. No injection or drainage. ENT: No nasal bleeding or discharge. Mucous membranes pink and moist. NECK: Trachea midline. No JVD. CARDIOVASCULAR: Regular rate and rhythm. RESPIRATORY: No accessory muscle use. Clear to auscultation. Breath sounds equal bilaterally. GASTROINTESTINAL: Abdomen soft, non-tender, nondistended. Hepatic and splenic margins not palpable. MUSCULOSKELETAL: Extremities without clubbing, cyanosis, or edema. No obvious deformities. NEUROLOGICAL: Awake and alert. No obvious cranial nerve deficits. Motor grossly within normal limits. Five out of 5 muscle strength in the arms and legs. Normal speech. PSYCHIATRIC: Appropriate mood and affect; insight and judgment normal. Data Data Last Documented VS Vital Signs Date Time Temp Pulse Resp B/P (MAP) Pulse Ox O2 Delivery O2 Flow Rate FiO2 05/23/17 06:11 05/23/17 00:57 65 16 98 Room Air 05/23/17 00:08 97.6 Orders Orders Ketorolac Inj (Toradol Inj) (05/23/17 02:30) Diphenhydramine Inj (Benadryl Inj) (05/23/17 02:30) Metoclopramide Inj (Reglan Inj) (05/23/17 02:30) Sodium Chlor 0.9% 1000 Ml Inj (Ns 1000 M (05/23/17 02:30) Ct Brain W/O Iv Contrast(Rout) (05/23/17 ) Shoulder, Complete (>2vws) (05/23/17 ) Morphine Inj (Morphine Inj) (05/23/17 04:30) Ezod-Aozse-Wlmj 325-50-40 Mg (Fioricet 3 (05/23/17 04:30) Ed Discharge Order (05/23/17 06:04) MDM Medical Decision Making Medical Screen Exam Complete: Yes Emergency Medical Condition: Yes Differential Diagnosis shoulder dislocation vs contusion, heaadache of sinus vs tumor recurrence vs tension vs PERDOMO NOS Narrative Course Ater Benadryl toradol and reglan do not releive her sx , I order CT and give 1 fioricet and morphine [address] shows no new findings frontal bone residual from old mass is seen as pt described that it was treated surgically thru L eye orbit . Pt given Rx for fioricet and Ibuprofen and follow up out pt Diagnosis Primary Impression: Head ache Qualified Codes: R51 - Headache Scripts Butalbital-Acetaminophen (Butalbital-Acetaminophen) 50-325 Mg Tab 1-2 TAB PO Q4HR Y for HEADACHE, #10 TAB 0 Refills Do not exceed 6 tablets per day. Prov: Marcin Jeffries MD 05/23/17 Disposition: 01 DISCHARGE HOME Marcin Jeffries MD May 23, 2017 02:44
--- NOTE | 2017-05-23 03:12 | RADRPT ---
EXAM DATE/TIME: 05/23/2017 02:51 [facility] COMPARISON: No previous studies available for comparison. INDICATIONS : Pt fell tonight- left shoulder pain MEDICAL HISTORY : Hypertension. Myocardial infarction. DVT SURGICAL HISTORY : Tubal ligation. Hysterectomy. Cholecystectomy. Carotid Stents ENCOUNTER: Initial ACUITY: 1 day PAIN SCORE: 8/10 LOCATION: Left Shoulder FINDINGS: Uncooperative patient with limited study. A mild concavity is suspected anterolaterally of the dennise l head, possibly a reverse Hill-Sachs lesion. No displaced fracture. No subluxation. CONCLUSION: Limited study. Questionable age indeterminate reverse Hill-Sachs lesion. No displaced fracture. No sims bluxation. Julian Gayle MD on May 23, 2017 at 3:09 Board Certified Radiologist. This report was verified electronically.
--- NOTE | 2017-05-23 03:43 | RADRPT ---
EXAM DATE/TIME: 05/23/2017 03:34 [facility] COMPARISON: No previous studies available for comparison. INDICATIONS : Cephalgia. RADIATION DOSE: 56.35 CTDIvol (mGy) MEDICAL HISTORY : tumor SURGICAL HISTORY : Tumor resection. ENCOUNTER: Initial ACUITY: 1 day PAIN SCALE: 8/10 LOCATION: cranial TECHNIQUE: Multiple contiguous axial images were obtained of the head. Using automated exposure control and adj ustment of the mA and/or kV according to patient size, radiation dose was kept as low as reasonably a chievable to obtain optimal diagnostic quality images. DICOM format image data is available electro nically for review and comparison. FINDINGS: CEREBRUM: The ventricles are normal for age. No evidence of midline shift, mass lesion, hemorrhage or acute in farction. No extra-axial fluid collections are seen. POSTERIOR FOSSA: The cerebellum and brainstem are intact. The 4th ventricle is midline. The cerebellopontine angle i s unremarkable. EXTRACRANIAL: The visualized portion of the orbits is intact. SKULL: The calvaria is intact. No evidence of skull fracture. Small benign osteoma right frontal bone. CONCLUSION: No acute intracranial abnormality. Julian Gayle MD on May 23, 2017 at 3:40 Board Certified Radiologist. This report was verified electronically.
[2017-05-23 04:12] VITALS: BP 179/86
[2017-05-23] MEDS ORDERED: ACETAMIN 325 MG/BUTALBITAL 50 MG/CAFFEINE 40 MG TAB PO ONE (04:30)
[2017-05-23] MEDS ORDERED: MORPHINE SULFATE 2 MG/ML INJ IV PUSH ONE (04:30)
[2017-05-23] MEDS ORDERED: BUTA1TAB30 PO (06:04)
== END 2017-05-23 06:12 | disposition home or self-care (01) ==
LOC: NEPC 00:05
DX: R51 Headache (principal); M25.512 Pain in left shoulder; I10 Essential (primary) hypertension; I25.2 Old myocardial infarction; K21.9 Gastro-esophageal reflux disease without esophagitis; R56.9 Unspecified convulsions; Z86.718 Personal history of other venous thrombosis and embolism; Z87.442 Personal history of urinary calculi; Z79.02 Long term (current) use of antithrombotics/antiplatelets
CPT/HCPCS: 70450; 73030; 96365; 96375; 99284; J1200; J1885; J2270; J2765; J7030

== ENCOUNTER 2017-06-14 22:50 | Emergency (ER) | payer SELFPAY ==
[~2017-06-14] VITALS: Ht 172.7 cm; Wt 106.0 kg
[~2017-06-14 22:50] MED LIST changes: +BUTA1TAB30 PO
[2017-06-14 23:00] VITALS: PULSE 73; RESP 18; TEMP 98.6; O2SAT 97
--- NOTE | 2017-06-15 00:09 | PD ---
HPI Chief Complaint: Injury Time Seen by Provider: 23:35 Travel History International Travel<30 days: No Contact w/Intl Traveler<30days: No Traveled to known affect area: No History of Present Illness HPI 46-year-old female presents to the emergency department complaining of left knee pain. Patient states that she had surgery in the past and was walking on a concrete service with sand and fell landing on her left knee. Patient states she has had previous posterior and anterior cruciate ligament repair. No swelling, redness, or bruising. Patient has pain. Patient took ibuprofen prior to arrival to the emergency department. Patient states she did not hit her head did not have loss of consciousness did not injure her neck back chest ribs abdomen pelvis or other extremity. Patient did not have loss of consciousness. Patient does take her blood thinning agent. Patient has history of CAD TIA hypertension dyslipidemia cardiac catheterization stent placement peripheral vascular disease previous orthopedic surgery. PFSH Past Medical History Narrative Medical CAD TIA hypertension dyslipidemia cardiac catheterization stent placement peripheral vascular disease previous orthopedic surgery; nursing notes reviewed Hx Anticoagulant Therapy: Yes (plavix) Arthritis: No Blood Disorders: No Heart Rhythm Problems: No Cancer: No Cardiovascular Problems: Yes (6 stents) High Cholesterol: No Chest Pain: No Congestive Heart Failure: No Cerebrovascular Accident: No Diabetes: No Diminished Hearing: No Deep Vein Thrombosis: Yes (RT LEG) Endocrine: No Gastrointestinal Disorders: Yes GERD: Yes Genitourinary: No Headaches: Yes Hepatitis: No Hiatal Hernia: No Hypertension: Yes Immune Disorder: No Kidney Stones: Yes Musculoskeletal: No Neurologic: Yes Psychiatric: No Reproductive: No Respiratory: No Immunizations Current: Yes Migraines: No Myocardial Infarction: No Renal Failure: No Seizures: Yes (DUE TO HIGH FEVER) Thyroid Disease: No Ulcer: No Tetanus Vaccination: > 5 Years Influenza Vaccination: No ?: Not : 3 Para: 3 Tubal Ligation: Yes Past Surgical History Abdominal Surgery: Yes (SHUNT X 5) AICD: No Cardiac Surgery: No Cholecystectomy: Yes Ear Surgery: No Endocrine Surgery: No Eye Surgery: No Genitourinary Surgery: No Gynecologic Surgery: No Hysterectomy: Yes Insulin Pump: No Joint Replacement: No Neurologic Surgery: Yes (EXCISION BENIGN BRAIN TUMOUR WITH PERITONEAL SHUNT PLACEMANT AND REVISION) Oral Surgery: No Pacemaker: No Thoracic Surgery: No Other Surgery: Yes (2 STENTS PLACEMENT AND FILTER PER PT.) Social History Alcohol Use: No Tobacco Use: No (quit 2009) Substance Use: No Allergies-Medications (Allergen,Severity, Reaction): Coded Allergies: codeine (Verified Allergy, Severe, RASH, N/V, 06/14/17) phenobarbital (Verified Allergy, Severe, 06/14/17) Reported Meds & Prescriptions Reported Meds & Active Scripts Active Butalbital-Acetaminophen 50-325 Mg Tab 1-2 Tab PO Q4HR PRN Do not exceed 6 tablets per day. Reported Aspirin 325 Mg Tab 325 Mg PO DAILY Norvasc (Amlodipine Besylate) 10 Mg Tab 10 Mg PO DAILY Lisinopril 40 Mg Tab 40 Mg PO DAILY Plavix (Clopidogrel Bisulfate) 75 Mg Tab 75 Mg PO DAILY Review of Systems Except as stated in HPI: all other systems reviewed are Neg Physical Exam Narrative GENERAL: Well-developed well-nourished female no acute distress or respiratory distress; GCS 15 SKIN: Warm and dry. HEAD: Normocephalic. EYES: No scleral icterus. No injection or drainage. NECK: Supple, trachea midline. No JVD or lymphadenopathy. CARDIOVASCULAR: Regular rate and rhythm without murmurs, gallops, or rubs. RESPIRATORY: Breath sounds equal bilaterally. No accessory muscle use. GASTROINTESTINAL: Abdomen soft, non-tender, nondistended. MUSCULOSKELETAL: No cyanosis, or edema. Left knee no abrasion no ecchymosis no erythema no increased warmth no ballotable effusion decreased range of motion secondary to pain without deformity distal extremities neurovascular tendon intact BACK: Nontender without obvious deformity. No CVA tenderness. Data Data Last Documented VS Vital Signs Date Time Temp Pulse Resp B/P (MAP) Pulse Ox O2 Delivery O2 Flow Rate FiO2 06/14/17 23:52 18 97 Room Air 06/14/17 23:00 98.6 73 Orders Orders Knee, Complete (4vws) (06/14/17 ) Ice/Cold Pack (06/14/17 23:35) Splint Or Brace Apply/Monitor (06/14/17 23:35) Immobilizer Knee 20 Inch (06/15/17 ) [facility] Medical Decision Making Medical Screen Exam Complete: Yes Emergency Medical Condition: Yes Medical Record Reviewed: Yes Interpretation(s) X-ray left knee: FINDINGS: Four view examination of the left knee demonstrates a tibial and distal femoral lucencies with a metallic clip adjacent to the latter characteristic of a prior ACL repair. Early osteoarthritic changes with some loss of the medial tibiofemoral joint space. No fracture. Small suprapatellar effusion. CONCLUSION: 1. Findings of a prior ACL repair. 2. Small suprapatellar effusion. No acute fracture. Timothy Gastelum MD on June 15, 2017 at 0:26 Board Certified Radiologist. This report was verified electronically. Differential Diagnosis Strain sprain contusion fracture internal derangement Narrative Course Imaging study ordered; ice pack applied; knee immobilizer ordered Patient informed of imaging results and is stable for outpatient management. Patient given dose of tramadol in the ED. Diagnosis Primary Impression: Left knee injury Qualified Codes: S89.92XA - Unspecified injury of left lower leg, initial encounter Additional Impression: Knee effusion, left Referrals: Orthopedist call for appointment Patient Instructions: General Instructions Additional Instructions: Wear immobilizer Follow-up with your primary care provider and orthopedist May continue take as tolerated ibuprofen per package directions May take as tolerated tramadol for pain greater than 5/10 intensity Return to the emergency department for any concerns or change in condition Med/Other Pt SpecificInfo: Prescription(s) given Scripts Tramadol (Tramadol) 50 Mg Tab 50 MG PO Q6H Y for PAIN, #6 TAB 0 Refills Prov: Luz Maria An MD 06/15/17 Disposition: 01 DISCHARGE HOME Condition: Stable Luz Maria An MD Jun 15, 2017 00:09
--- NOTE | 2017-06-15 00:30 | RADRPT ---
EXAM DATE/TIME: 06/14/2017 23:52 [facility] COMPARISON: No previous studies available for comparison. INDICATIONS : Left patella pain post fall. MEDICAL HISTORY : Myocardial infarction. Hypertension. Gastroesophageal reflux disease. DVT, Seizures SURGICAL HISTORY : Cholecystectomy. Benign brain tumor removed, left knee surgery ENCOUNTER: Initial ACUITY: 1 day PAIN SCORE: 8/10 LOCATION: Left knee FINDINGS: Four view examination of the left knee demonstrates a tibial and distal femoral lucencies with a meta llic clip adjacent to the latter characteristic of a prior ACL repair. Early osteoarthritic changes w ith some loss of the medial tibiofemoral joint space. No fracture. Small suprapatellar effusion. CONCLUSION: 1. Findings of a prior ACL repair. 2. Small suprapatellar effusion. No acute fracture. Timothy Gastelum MD on June 15, 2017 at 0:26 Board Certified Radiologist. This report was verified electronically.
[2017-06-15] MEDS ORDERED: TRAM50TA PO (00:32)
[2017-06-15] MEDS ORDERED: traMADol HCL 50 MG TAB PO ONE (00:45)
[2017-06-15 00:56] VITALS: BP 190/92; PULSE 86; RESP 18; O2SAT 98
== END 2017-06-15 01:21 | disposition home or self-care (01) ==
LOC: PHED 22:50
DX: S89.92XA Unspecified injury of left lower leg, initial encounter (principal); M25.462 Effusion, left knee; I25.10 Atherosclerotic heart disease of native coronary artery without angina pectoris; I10 Essential (primary) hypertension; E78.5 Hyperlipidemia, unspecified; K21.9 Gastro-esophageal reflux disease without esophagitis; W18.39XA Other fall on same level, initial encounter; Y93.01 Activity, walking, marching and hiking; Z98.890 Other specified postprocedural states; Z79.01 Long term (current) use of anticoagulants; Z86.718 Personal history of other venous thrombosis and embolism; Z87.19 Personal history of other diseases of the digestive system; Z86.69 Personal history of other diseases of the nervous system and sense organs
CPT/HCPCS: 73564; 99283; L1830

== ENCOUNTER 2017-06-29 02:55 | Emergency (ER) | payer SELFPAY ==
[~2017-06-29] VITALS: Ht 172.7 cm; Wt 107.7 kg
[~2017-06-29 02:55] MED LIST changes: +TRAM50TA PO
[2017-06-29 02:59] VITALS: BP 209/101; PULSE 78; RESP 18; TEMP 97.7; O2SAT 100
[2017-06-29 03:20] VITALS: BP 213/111; PULSE 78; RESP 18; O2SAT 100
[2017-06-29] MEDS ORDERED: SODIUM CHLOR 0.9% 1000 ML INJ 1,000 ML IV SCH (04:01)
[2017-06-29] MEDS ORDERED: ONDANSETRON HCL 4 MG/2 ML VIAL IVP ONE (04:15)
[2017-06-29] MEDS ORDERED: HYDROmorphone HCL PF 2 MG/ML VIAL IV PUSH ONE ×2 (04:15→05:15)
[2017-06-29] MEDS ORDERED: KETOROLAC TROMETHAMINE 30 MG/ML (IVP) VIAL IVP ONE (04:15)
[2017-06-29] MEDS ORDERED: SODIUM CHLORIDE 0.9% FLUSH 10 ML FLUSH IV FLUSH PRN (04:15)
[2017-06-29 04:22] LABS: BILIRUBIN, URINE NEG (NEG); BLOOD, URINE MOD (NEG); GLUCOSE,URINE NEG (NEG); KETONE, URINE NEG (NEG); NITRITE,URINE NEG (NEG); URINE COLOR YELLOW (YELLW/STRAW); URINE LEUKOCYTE ESTERASE MOD (NEG)
[2017-06-29 04:27] LABS: AUTOMATED NEUTROPHIL # 5.6 TH/MM3 (1.8-7.7); BASOPHIL % 0.4 % (0.0-2.0); EOSINOPHIL # 0.3 TH/MM3 (0-0.4); EOSINOPHIL % 3.4 % (0.0-4.0); HEMATOCRIT 43.1 % (35.0-46.0); HEMOGLOBIN 14.1 GM/DL (11.6-15.3); LYMPH % 22.8 % (9.0-44.0); LYMPHOCYTE # 1.9 TH/MM3 (1.0-4.8); MEAN CELL VOLUME 82.3 FL (80.0-100.0); MEAN CORPUSCULAR HEMOGLOBIN 26.8 PG (27.0-34.0); MEAN CORPUSCULAR HGB CONC 32.6 % (32.0-36.0); MEAN PLATELET VOLUME 8.4 FL (7.0-11.0); MONO % 5.7 % (0.0-8.0); MONOCYTE # 0.5 TH/MM3 (0-0.9); NEUT % 67.7 % (16.0-70.0); PLATELET COUNT 240 TH/MM3 (150-450); RED BLOOD COUNT 5.24 MIL/MM3 (4.00-5.30); RED CELL DISTRIBUTION WIDTH 12.6 % (11.6-17.2); WHITE BLOOD COUNT 8.3 TH/MM3 (4.0-11.0)
[2017-06-29 04:28] LABS: BACTERIA, URINE FEW /hpf; CALCIUM OXALATE CRYSTALS,URINE MOD /hpf; SQUAMOUS EPITHELIAL CELL URINE > 8 /hpf (0-5)
[2017-06-29 04:33] VITALS: BP 178/90; PULSE 88; RESP 16; O2SAT 99
[2017-06-29 04:34] LABS: CHLORIDE 104 MEQ/L (98-107); SODIUM (NA) 140 MEQ/L (136-145)
[2017-06-29 04:37] LABS: ALBUMIN 3.8 GM/DL (3.4-5.0); BICARBONATE 30.5 MEQ/L (21.0-32.0); BLOOD UREA NITROGEN 17 MG/DL (7-18); CALCIUM 8.6 MG/DL (8.5-10.1); GLUCOSE,RANDOM 109 MG/DL (74-106)
[2017-06-29 04:40] LABS: ALT (GPT) 116 U/L (10-53); AST (GOT) 48 U/L (15-37); CREATININE 0.99 MG/DL (0.50-1.00); GLOMERULAR FILTRATION RATE 60 ML/MIN (>89)
[2017-06-29 04:42] LABS: TOTAL BILIRUBIN ADULT 0.4 MG/DL (0.2-1.0); TOTAL PROTEIN 7.9 GM/DL (6.4-8.2)
[2017-06-29 04:43] LABS: ALKALINE PHOSPHATASE 125 U/L (45-117)
[2017-06-29] MEDS ORDERED: SODIUM CHLORID 0.9% 500 ML INJ 500 ML IV ONE (05:15)
[2017-06-29] MEDS ORDERED: cefTRIAXone INJ 1,000 MG in SODIUM CHLORIDE 0.9% INJ 100 ML IV ONE (05:15)
--- NOTE | 2017-06-29 05:29 | PD ---
HPI Chief Complaint: Abdominal Pain Time Seen by Provider: 05:14 Travel History International Travel<30 days: No Contact w/Intl Traveler<30days: No Traveled to known affect area: No History of Present Illness HPI 46-year-old female presents to the emergency department for complaint of right lower quadrant and right flank pain sudden onset that awakened her from sleep. Patient has history of kidney stones. Symptoms are similar. Patient is also noted cloudy urine. Patient said subjective fever and chills with nausea and episode of vomiting. No hematemesis no coffee-ground emesis no melena hematochezia. No hematuria. No injury or fall. The patient rates her pain 9- 10/10 intensity. Patient denies and denies history of ovarian cyst reports she is status post hysterectomy and believes bilateral salpingo- oophorectomy. PFSH Past Medical History Narrative Medical CAD coronary stents brain tumor excision with INVENTORY SPECIALIST shunt DVT hypertension seizure kidney stone tubal ligation cholecystectomy Tayler filter; no tobacco use; nursing notes reviewed Hx Anticoagulant Therapy: Yes (plavix) Arthritis: No Blood Disorders: No Heart Rhythm Problems: No Cancer: No Cardiovascular Problems: Yes (6 stents) High Cholesterol: No Chest Pain: No Congestive Heart Failure: No Cerebrovascular Accident: No Diabetes: No Diminished Hearing: No Deep Vein Thrombosis: Yes (RT LEG) Endocrine: No Gastrointestinal Disorders: Yes GERD: Yes Genitourinary: No Headaches: Yes Hepatitis: No Hiatal Hernia: No Hypertension: Yes Immune Disorder: No Kidney Stones: Yes Musculoskeletal: No Neurologic: Yes Psychiatric: No Reproductive: No Respiratory: No Immunizations Current: Yes Migraines: No Myocardial Infarction: No Renal Failure: No Seizures: Yes (DUE TO HIGH FEVER) Thyroid Disease: No Ulcer: No ?: Not : 3 Para: 3 Tubal Ligation: Yes Past Surgical History Abdominal Surgery: Yes (SHUNT X 5) AICD: No Cardiac Surgery: No Cholecystectomy: Yes Ear Surgery: No Endocrine Surgery: No Eye Surgery: No Genitourinary Surgery: No Gynecologic Surgery: No Hysterectomy: Yes Insulin Pump: No Joint Replacement: No Neurologic Surgery: Yes (EXCISION BENIGN BRAIN TUMOUR WITH PERITONEAL SHUNT PLACEMANT AND REVISION) Oral Surgery: No Pacemaker: No Thoracic Surgery: No Other Surgery: Yes (2 STENTS PLACEMENT AND FILTER PER PT.) Social History Alcohol Use: No Tobacco Use: No (quit 2009) Substance Use: No Allergies-Medications (Allergen,Severity, Reaction): Coded Allergies: codeine (Verified Allergy, Severe, RASH, N/V, 06/29/17) phenobarbital (Verified Allergy, Severe, 06/29/17) Reported Meds & Prescriptions Reported Meds & Active Scripts Active Reported Aspirin 325 Mg Tab 325 Mg PO DAILY Norvasc (Amlodipine Besylate) 10 Mg Tab 10 Mg PO DAILY Lisinopril 40 Mg Tab 40 Mg PO DAILY Plavix (Clopidogrel Bisulfate) 75 Mg Tab 75 Mg PO DAILY Review of Systems Except as stated in HPI: all other systems reviewed are Neg General / Constitutional: No: Fever, Chills HENT: No: Congestion Cardiovascular: No: Chest Pain or Discomfort Respiratory: No: Shortness of Breath Gastrointestinal: Positive: Nausea, Vomiting, Abdominal Pain Genitourinary: Positive: Flank Pain, No: Hematuria Musculoskeletal: No: Myalgias, Arthralgias Skin: No Rash Neurologic: No: Weakness, Dizziness, Syncope Psychiatric: No: Anxiety Hematologic/Lymphatic: No: Lymph Node Enlargement Physical Exam Narrative GENERAL: Well-developed well-nourished female in obvious discomfort no respiratory distress SKIN: Warm and dry. HEAD: Normocephalic. EYES: No scleral icterus. No injection or drainage. NECK: Supple, trachea midline. No JVD or lymphadenopathy. CARDIOVASCULAR: Regular rate and rhythm without murmurs, gallops, or rubs. RESPIRATORY: Breath sounds equal bilaterally. No accessory muscle use. GASTROINTESTINAL: Abdomen soft, right-sided tenderness to palpation without guarding or rebound, nondistended. MUSCULOSKELETAL: No cyanosis, or edema. BACK: Nontender without obvious deformity. Right side CVA tenderness. Data Data Last Documented VS Vital Signs Date Time Temp Pulse Resp B/P (MAP) Pulse Ox O2 Delivery O2 Flow Rate FiO2 06/29/17 05:41 79 16 179/97 (124) 100 Room Air 06/29/17 02:59 97.7 Orders Orders Complete Blood Count With Diff (06/29/17 04:01) Comprehensive Metabolic Panel (06/29/17 04:01) Lipase (06/29/17 04:01) Urinalysis - C+S If Indicated (06/29/17 04:01) Iv Access Insert/Monitor (06/29/17 04:01) Ecg Monitoring (06/29/17 04:01) Oximetry (06/29/17 04:01) Ondansetron Inj (Zofran Inj) (06/29/17 04:15) Sodium Chlor 0.9% 1000 Ml Inj (Ns 1000 M (06/29/17 04:01) Sodium Chloride 0.9% Flush (Ns Flush) (06/29/17 04:15) Ketorolac Inj (Toradol Inj) (06/29/17 04:15) Ed Urine Pregnancytest Poc (06/29/17 04:01) Hydromorphone Pf Inj (Dilaudid Pf Inj) (06/29/17 04:15) Urine Culture (06/29/17 04:10) Ct Abd/Pel W/O Iv Contrast (06/29/17 ) Hydromorphone Pf Inj (Dilaudid Pf Inj) (06/29/17 05:15) Sodium Chlorid 0.9% 500 Ml Inj (Ns 500 M (06/29/17 05:15) Ceftriaxone Inj (Rocephin Inj) (06/29/17 05:15) Potassium Chloride (Kcl) (06/29/17 06:15) Ed Discharge Order (06/29/17 06:13) Labs Laboratory Tests Test 06/29/17 04:10 White Blood Count 8.3 TH/MM3 Red Blood Count 5.24 MIL/MM3 Hemoglobin 14.1 GM/DL Hematocrit 43.1 % Mean Corpuscular Volume 82.3 FL Mean Corpuscular Hemoglobin 26.8 PG Mean Corpuscular Hemoglobin Concent 32.6 % Red Cell Distribution Width 12.6 % Platelet Count 240 TH/MM3 Mean Platelet Volume 8.4 FL Neutrophils (%) (Auto) 67.7 % Lymphocytes (%) (Auto) 22.8 % Monocytes (%) (Auto) 5.7 % Eosinophils (%) (Auto) 3.4 % Basophils (%) (Auto) 0.4 % Neutrophils # (Auto) 5.6 TH/MM3 Lymphocytes # (Auto) 1.9 TH/MM3 Monocytes # (Auto) 0.5 TH/MM3 Eosinophils # (Auto) 0.3 TH/MM3 Basophils # (Auto) 0.0 TH/MM3 CBC Comment DIFF FINAL Differential Comment Urine Color YELLOW Urine Turbidity SL CLOUDY Urine pH 6.0 Urine Specific [place] 1.025 Urine Protein TRACE mg/dL Urine Glucose (UA) NEG mg/dL Urine Ketones NEG mg/dL Urine Occult Blood MOD Urine Nitrite NEG Urine Bilirubin NEG Urine Urobilinogen 0.2 MG/DL Urine Leukocyte Esterase MOD Urine RBC 25-49 /hpf Urine WBC 50-99 /hpf Urine Squamous Epithelial Cells > 8 /hpf Urine Calcium Oxalate Crystals MOD /hpf Urine Bacteria FEW /hpf Microscopic Urinalysis Comment CULTURE INDICATED Blood Urea Nitrogen 17 MG/DL Creatinine 0.99 MG/DL Random Glucose 109 MG/DL Total Protein 7.9 GM/DL Albumin 3.8 GM/DL Calcium Level 8.6 MG/DL Alkaline Phosphatase 125 U/L Aspartate Amino Transf (AST/SGOT) 48 U/L Alanine Aminotransferase (ALT/SGPT) 116 U/L Total Bilirubin 0.4 MG/DL Sodium Level 140 MEQ/L Potassium Level 3.2 MEQ/L Chloride Level 104 MEQ/L Carbon Dioxide Level 30.5 MEQ/L Anion Gap 6 MEQ/L Estimat Glomerular Filtration Rate 60 ML/MIN Lipase 142 U/L MDM Medical Decision Making Medical Screen Exam Complete: Yes Emergency Medical Condition: Yes Medical Record Reviewed: Yes Interpretation(s) CBC & BMP Diagram 06/29/17 04:10 Total Protein 7.9, Albumin 3.8, Calcium Level 8.6, Alkaline Phosphatase 125 H, Aspartate Amino Transf (AST/SGOT) 48 H, Alanine Aminotransferase (ALT/SGPT) 116 H, Total Bilirubin 0.4 Vital Signs Date Time Temp Pulse Resp B/P (MAP) Pulse Ox O2 Delivery O2 Flow Rate FiO2 06/29/17 05:00 16 06/29/17 05:00 16 06/29/17 04:33 88 16 178/90 (119) 99 Room Air 06/29/17 03:20 78 18 213/111 (145) 100 Room Air 06/29/17 02:59 97.7 78 18 209/101 (137) 100 CT abd/pel: FINDINGS: Lung bases are clear. Fatty liver. Spleen, adrenals, pancreas unremarkable. Previous cholecystectomy. 4 mm calculus lower pole right kidney nonobstructing. 2 tiny nonobstructing 1-2 mm calculi lower pole left kidney. Inferior vena cava filter present. No free fluid. No bowel obstruction. No adenopathy. CONCLUSION: 1. Bilateral nonobstructing renal calculi. 2. Fatty liver. Cholecystectomy. Inferior vena cava filter present. Sachin Rincon MD on June 29, 2017 at 6:01 Board Certified Radiologist. This report was verified electronically. UA: Blood white blood cells calcium oxalate crystals leukocyte esterase; culture indicate Differential Diagnosis Flank pain renal colic obstructive uropathy pyelonephritis UTI appendicitis ruptured ovarian cyst Narrative Course Patient placed on monitoring analyst with continuous pulse oximetry IV access obtained specimens collected and sent for resulting patient given bolus of normal saline Zofran 4 mg and Dilaudid 1 mg IV as well as Toradol 30 mg IV Patient has improvement of symptoms after medication CBC is automated differential within normal limits chemistries grossly within normal limits urinalysis abnormal with positive red blood cells white blood cells calcium oxalate crystals and culture indicated Patient administered Rocephin 1 g IV piggyback as well as repeat dose of Dilaudid [address] abdomen pelvis consistent with bilateral nonobstructing nephrolithiasis no ureterolithiasis and no evidence of recent hydronephrosis or hydroureter. Patient informed of imaging results has received a dose of IV antibiotics will be discharged with oral antibiotics and pain medication is encouraged to follow- up with primary care provider/urologist. Diagnosis Primary Impression: UTI (urinary tract infection) Additional Impression: Bilateral nephrolithiasis Referrals: Primary Care Physician 2 days Urologist as needed Patient Instructions: General Instructions, Narcotic given in the ED Additional Instructions: Increase fluid hydration Follow-up with primary care provider Return to the emergency department for any concerns or change in condition Take acetaminophen as needed for fever 100.4F or greater Take ibuprofen/Advil/Motrin 800 mg as often as every 8 hours for pain associated with inflammation or for fever 100.4F or greater Complete course of antibiotic as prescribed Follow-up with urologist Med/Other Pt SpecificInfo: Prescription(s) given Scripts Tramadol (Tramadol) 50 Mg Tab 50 MG PO Q6H Y for PAIN, #7 TAB 0 Refills Prov: Luz Maria An MD 06/29/17 Ondansetron Odt (Zofran Odt) 4 Mg Tab 4 MG SL Q6HR Y for Nausea/Vomiting, #10 TAB 0 Refills Prov: Luz Maria An MD 06/29/17 Cephalexin (Keflex) 500 Mg Capsule 500 MG PO Q6H for Infection for 10 Days, #40 CAP 0 Refills Prov: Luz Maria An MD 06/29/17 Disposition: 01 DISCHARGE HOME Condition: Stable Luz Maria An MD Jun 29, 2017 05:29
[2017-06-29 05:41] VITALS: BP 179/97; PULSE 79; RESP 16; O2SAT 100
--- NOTE | 2017-06-29 06:06 | RADRPT ---
EXAM DATE/TIME: 06/29/2017 05:26 [place] COMPARISON: No previous studies available for comparison. INDICATIONS : Right flank and right lower quadrant pain. ORAL CONTRAST: No oral contrast ingested. RADIATION DOSE: 27.90 CTDIvol (mGy) MEDICAL HISTORY : Hypertension. Renal calculi. Gastroesophageal reflux disease.DVT. SURGICAL HISTORY : Cholecystectomy. Hysterectomy.IVC Filter placement. ENCOUNTER: Initial ACUITY: 1 day PAIN SCALE: 7/10 LOCATION: Right abdomen. TECHNIQUE: Volumetric scanning of the abdomen and pelvis was performed. Using automated exposure control and ad justment of the mA and/or kV according to patient size, radiation dose was kept as low as reasonably achievable to obtain optimal diagnostic quality images. DICOM format image data is available electro nically for review and comparison. FINDINGS: Lung bases are clear. Fatty liver. Spleen, adrenals, pancreas unremarkable. Previous cholecystectomy. 4 mm calculus lower pole right kidney nonobstructing. 2 tiny nonobstructing 1-2 mm calculi lower pole left kidney. Inferior vena cava filter present. No free fluid. No bowel obstruction. No adenopathy. CONCLUSION: 1. Bilateral nonobstructing renal calculi. 2. Fatty liver. Cholecystectomy. Inferior vena cava filter present. Sachin Rincon MD on June 29, 2017 at 6:01 Board Certified Radiologist. This report was verified electronically.
[2017-06-29] MEDS ORDERED: POTASSIUM CHLORIDE 20 MEQ CONTROLLED RELEASE TAB PO ONE (06:15)
[2017-06-29] MEDS ORDERED: ZOFR4TAB3 SL (06:17)
[2017-06-29] MEDS ORDERED: TRAM50TA PO (06:17)
[2017-06-29] MEDS ORDERED: CEPH-460 PO (06:17)
[2017-06-29] MEDS ORDERED: ONDANSETRON HCL 4 MG/2 ML VIAL IV PUSH ONE (06:45)
[2017-06-29 06:48] VITALS: BP 168/72
== END 2017-06-29 06:54 | disposition home or self-care (01) ==
LOC: PHED 02:55
DX: N39.0 Urinary tract infection, site not specified (principal); N20.0 Calculus of kidney; K76.0 Fatty (change of) liver, not elsewhere classified; I25.10 Atherosclerotic heart disease of native coronary artery without angina pectoris; I10 Essential (primary) hypertension; R56.9 Unspecified convulsions; K21.9 Gastro-esophageal reflux disease without esophagitis; Z98.2 Presence of cerebrospinal fluid drainage device; Z86.718 Personal history of other venous thrombosis and embolism
CPT/HCPCS: 74176; 80053; 81001; 83690; 85025; 87086; 96361; 96365; 96375; 96376; 99284; J0696; J1170; J1885; J2405; J7030; J7040

== ENCOUNTER 2017-08-11 17:14 | Emergency (ER) | payer SELFPAY ==
[~2017-08-11] VITALS: Ht 172.7 cm; Wt 107.7 kg
[~2017-08-11 17:14] MED LIST changes: -BUTA1TAB30 PO; +CEPH-460 PO; +ZOFR4TAB3 SL
[2017-08-11 17:20] VITALS: BP 218/105; PULSE 76; RESP 16; TEMP 97.6; O2SAT 97
[2017-08-11] MEDS ORDERED: SODIUM CHLOR 0.9% 1000 ML INJ 1,000 ML IV ONE (17:45)
[2017-08-11] MEDS ORDERED: HYDROmorphone HCL PF 1 MG/ML VIAL IV PUSH ONE (17:45)
[2017-08-11] MEDS ORDERED: ONDANSETRON HCL 4 MG/2 ML VIAL IV PUSH ONE (17:45)
--- NOTE | 2017-08-11 17:46 | PD ---
HPI Chief Complaint: Abdominal Pain Time Seen by Provider: 17:29 Travel History International Travel<30 days: No Contact w/Intl Traveler<30days: No Traveled to known affect area: No History of Present Illness HPI This 46-year-old female is complaining of right lower quadrant pain and vomiting. Her symptoms started this morning. He has vomited several times. She is having a pain in the right mid right lower quadrant area was initially intermittent but now is fairly constant. He has not had any dysuria. She has a history history of hysterectomy. She has had a cholecystectomy. She has 6 stents in her heart and had myocardial infarction in 2007 and 2008. Stopped smoking 9 years ago. sHe says she has had kidney stones in the past. She is not aware of fever or chills. PFSH Past Medical History Hx Anticoagulant Therapy: Yes (plavix) Arthritis: No Blood Disorders: No Heart Rhythm Problems: No Cancer: No Cardiovascular Problems: Yes (htn on meds, [place] X2 total of 6 stents) High Cholesterol: No Chest Pain: No Congestive Heart Failure: No Cerebrovascular Accident: No Diabetes: No Diminished Hearing: No Deep Vein Thrombosis: Yes (RT LEG) Endocrine: No Gastrointestinal Disorders: Yes GERD: Yes Genitourinary: No Headaches: Yes Hepatitis: No Hiatal Hernia: No Hypertension: Yes Immune Disorder: No Kidney Stones: Yes Musculoskeletal: No Neurologic: Yes Psychiatric: No Reproductive: No Respiratory: No Immunizations Current: Yes Migraines: No Myocardial Infarction: No Renal Failure: No Seizures: Yes (DUE TO HIGH FEVER) Thyroid Disease: No Ulcer: No Tetanus Vaccination: < 5 Years ?: Not : 3 Para: 3 Tubal Ligation: Yes Past Surgical History Abdominal Surgery: Yes (SHUNT X 5) AICD: No Cardiac Surgery: No Cholecystectomy: Yes Ear Surgery: No Endocrine Surgery: No Eye Surgery: No Genitourinary Surgery: No Gynecologic Surgery: No Hysterectomy: Yes Insulin Pump: No Joint Replacement: No Neurologic Surgery: Yes (EXCISION BENIGN BRAIN TUMOUR WITH PERITONEAL SHUNT PLACEMANT AND REVISION) Oral Surgery: No Pacemaker: No Thoracic Surgery: No Other Surgery: Yes (2 STENTS PLACEMENT AND FILTER PER PT.) Social History Alcohol Use: No Tobacco Use: No (quit 2009) Substance Use: No Allergies-Medications (Allergen,Severity, Reaction): Coded Allergies: codeine (Verified Allergy, Severe, RASH, N/V, 08/11/17) phenobarbital (Verified Allergy, Severe, 08/11/17) Reported Meds & Prescriptions Reported Meds & Active Scripts Active Tramadol (Tramadol HCl) 50 Mg Tab 50 Mg PO Q8H PRN 3 Days Macrobid (Nitrofurantoin Monohydrate Macrocrystals) 100 Mg Capsule 100 Mg PO BID 7 Days Reported Norvasc (Amlodipine Besylate) 10 Mg Tab 10 Mg PO DAILY Lisinopril 40 Mg Tab 40 Mg PO DAILY Plavix (Clopidogrel Bisulfate) 75 Mg Tab 75 Mg PO DAILY Review of Systems General / Constitutional: No: Fever, Chills Eyes: No: Diploplia, Blurred Vision HENT: No: Headaches, Vertigo Cardiovascular: No: Palpitations Respiratory: No: Cough, Shortness of Breath Gastrointestinal: Positive: Nausea, Vomiting, Abdominal Pain, No: Constipation Genitourinary: No: Urgency, Frequency, Dysuria Skin: No Rash, No Itching Neurologic: No: Weakness, Dizziness Psychiatric: No: Anxiety, Depression Hematologic/Lymphatic: No: Easy Bruising Physical Exam Narrative GENERAL: Well-developed female SKIN: Focused skin assessment warm/dry. HEAD: Atraumatic. Normocephalic. EYES: Pupils equal and round. No scleral icterus. No injection or drainage. ENT: No nasal bleeding or discharge. Mucous membranes pink and moist. NECK: Trachea midline. No JVD. CARDIOVASCULAR: Regular rate and rhythm. No murmur appreciated. RESPIRATORY: No accessory muscle use. Clear to auscultation. Breath sounds equal bilaterally. GASTROINTESTINAL: Abdomen soft, there is some right lower quadrant tenderness, nondistended. Hepatic and splenic margins not palpable. MUSCULOSKELETAL: No obvious deformities. No clubbing. No cyanosis. No edema. NEUROLOGICAL: Awake and alert. No obvious cranial nerve deficits. Motor grossly within normal limits. Normal speech. PSYCHIATRIC: Appropriate mood and affect; insight and judgment normal. Data Data Last Documented VS Vital Signs Date Time Temp Pulse Resp B/P (MAP) Pulse Ox O2 Delivery O2 Flow Rate FiO2 08/11/17 20:40 08/11/17 20:30 74 14 97 Room Air 08/11/17 17:20 97.6 Orders Orders Complete Blood Count With Diff (08/11/17 17:38) Comprehensive Metabolic Panel (08/11/17 17:38) Urinalysis - C+S If Indicated (08/11/17 17:38) Ct Abd/Pel W Iv Contrast(Rout) (08/11/17 17:38) Sodium Chlor 0.9% 1000 Ml Inj (Ns 1000 M (08/11/17 17:45) Ondansetron Inj (Zofran Inj) (08/11/17 17:45) Hydromorphone Pf Inj (Dilaudid Pf Inj) (08/11/17 17:45) Hydromorphone Pf Inj (Dilaudid Pf Inj) (08/11/17 18:15) Urine Culture (08/11/17 18:30) Iohexol 350 Inj (Omnipaque 350 Inj) (08/11/17 19:20) Ceftriaxone Inj (Rocephin Inj) (08/11/17 19:30) Ed Discharge Order (08/11/17 19:49) Labs Laboratory Tests Test 08/11/17 18:30 White Blood Count 7.1 TH/MM3 Red Blood Count 5.16 MIL/MM3 Hemoglobin 14.1 GM/DL Hematocrit 42.7 % Mean Corpuscular Volume 82.8 FL Mean Corpuscular Hemoglobin 27.3 PG Mean Corpuscular Hemoglobin Concent 33.0 % Red Cell Distribution Width 13.6 % Platelet Count 235 TH/MM3 Mean Platelet Volume 8.1 FL Neutrophils (%) (Auto) 68.3 % Lymphocytes (%) (Auto) 21.5 % Monocytes (%) (Auto) 7.3 % Eosinophils (%) (Auto) 2.5 % Basophils (%) (Auto) 0.4 % Neutrophils # (Auto) 4.9 TH/MM3 Lymphocytes # (Auto) 1.5 TH/MM3 Monocytes # (Auto) 0.5 TH/MM3 Eosinophils # (Auto) 0.2 TH/MM3 Basophils # (Auto) 0.0 TH/MM3 CBC Comment DIFF FINAL Differential Comment Urine Color YELLOW Urine Turbidity CLEAR Urine pH 6.0 Urine Specific [place] 1.020 Urine Protein TRACE mg/dL Urine Glucose (UA) NEG mg/dL Urine Ketones NEG mg/dL Urine Occult Blood MOD Urine Nitrite POS Urine Bilirubin NEG Urine Urobilinogen 0.2 MG/DL Urine Leukocyte Esterase MOD Urine RBC 4-9 /hpf Urine WBC 9-14 /hpf Urine WBC Clumps FEW Urine Squamous Epithelial Cells 0-5 /hpf Urine Bacteria FEW /hpf Urine Mucus MOD /lpf Microscopic Urinalysis Comment CULTURE INDICATED Blood Urea Nitrogen 13 MG/DL Creatinine 0.69 MG/DL Random Glucose 104 MG/DL Total Protein 7.0 GM/DL Albumin 3.4 GM/DL Calcium Level 8.5 MG/DL Alkaline Phosphatase 104 U/L Aspartate Amino Transf (AST/SGOT) 34 U/L Alanine Aminotransferase (ALT/SGPT) 93 U/L Total Bilirubin 0.5 MG/DL Sodium Level 143 MEQ/L Potassium Level 3.8 MEQ/L Chloride Level 108 MEQ/L Carbon Dioxide Level 29.0 MEQ/L Anion Gap 6 MEQ/L Estimat Glomerular Filtration Rate 91 ML/MIN [facility] Medical Decision Making Medical Screen Exam Complete: Yes Emergency Medical Condition: Yes Medical Record Reviewed: Yes Differential Diagnosis Differential includes appendicitis, renal colic, pyelonephritis Narrative Course Blood work and CT scan have been ordered. Disposition will be determined by oncoming physician. Scripts Tramadol (Tramadol) 50 Mg Tab 50 MG PO Q8H Y for PAIN for 3 Days, #9 TAB 0 Refills Prov: José Carson MD 08/11/17 Nitrofurantoin Monohydrate Macrocrystals (Macrobid) 100 Mg Capsule 100 MG PO BID for Infection for 7 Days, #14 CAP 0 Refills Prov: José Carson MD 08/11/17 Rodger Becker MD August 11, 2017 17:46
[2017-08-11 18:15] VITALS: BP 194/91; PULSE 77; RESP 18; O2SAT 97
[2017-08-11] MEDS ORDERED: HYDROmorphone HCL PF 2 MG/ML VIAL IV PUSH ONE (18:15)
[2017-08-11 18:38] VITALS: BP 180/90; PULSE 78
[2017-08-11 18:41] LABS: BILIRUBIN, URINE NEG (NEG); BLOOD, URINE MOD (NEG); GLUCOSE,URINE NEG (NEG); KETONE, URINE NEG (NEG); NITRITE,URINE POS (NEG); URINE COLOR YELLOW (YELLW/STRAW); URINE LEUKOCYTE ESTERASE MOD (NEG)
[2017-08-11 18:45] LABS: AUTOMATED NEUTROPHIL # 4.9 TH/MM3 (1.8-7.7); BASOPHIL % 0.4 % (0.0-2.0); EOSINOPHIL # 0.2 TH/MM3 (0-0.4); EOSINOPHIL % 2.5 % (0.0-4.0); HEMATOCRIT 42.7 % (35.0-46.0); HEMOGLOBIN 14.1 GM/DL (11.6-15.3); LYMPH % 21.5 % (9.0-44.0); LYMPHOCYTE # 1.5 TH/MM3 (1.0-4.8); MEAN CELL VOLUME 82.8 FL (80.0-100.0); MEAN CORPUSCULAR HEMOGLOBIN 27.3 PG (27.0-34.0); MEAN PLATELET VOLUME 8.1 FL (7.0-11.0); MONO % 7.3 % (0.0-8.0); MONOCYTE # 0.5 TH/MM3 (0-0.9); NEUT % 68.3 % (16.0-70.0); PLATELET COUNT 235 TH/MM3 (150-450); RED BLOOD COUNT 5.16 MIL/MM3 (4.00-5.30); RED CELL DISTRIBUTION WIDTH 13.6 % (11.6-17.2); WHITE BLOOD COUNT 7.1 TH/MM3 (4.0-11.0)
[2017-08-11 18:47] LABS: BACTERIA, URINE FEW /hpf; MUCUS URINE MOD /lpf (OCC); SQUAMOUS EPITHELIAL CELL URINE 0-5 /hpf (0-5); WHITE BLOOD CELL CLUMPS FEW
[2017-08-11 18:49] LABS: CHLORIDE 108 MEQ/L (98-107); SODIUM (NA) 143 MEQ/L (136-145)
[2017-08-11 18:53] LABS: ALBUMIN 3.4 GM/DL (3.4-5.0); BLOOD UREA NITROGEN 13 MG/DL (7-18); CALCIUM 8.5 MG/DL (8.5-10.1); GLUCOSE,RANDOM 104 MG/DL (74-106)
[2017-08-11 18:56] LABS: ALT (GPT) 93 U/L (10-53); AST (GOT) 34 U/L (15-37); CREATININE 0.69 MG/DL (0.50-1.00); GLOMERULAR FILTRATION RATE 91 ML/MIN (>89)
[2017-08-11 18:58] LABS: TOTAL BILIRUBIN ADULT 0.5 MG/DL (0.2-1.0)
[2017-08-11 18:59] LABS: ALKALINE PHOSPHATASE 104 U/L (45-117)
[2017-08-11 19:00] VITALS: BP 203/107; PULSE 73; RESP 14; O2SAT 97
--- NOTE | 2017-08-11 19:01 | PD ---
Physical Exam Date Seen by Provider: August 11, 2017 Time Seen by Provider: 19:00 Narrative The patient was signed out to me at change of shift by Dr. Sen. Please see his H&P for further details. Patient presents with complaints of abdominal pain. White count was within normal limits. CT of the M pelvis, urine and conference metabolic panel were pending at the time of signout. Data Data Last Documented VS Vital Signs Date Time Temp Pulse Resp B/P (MAP) Pulse Ox O2 Delivery O2 Flow Rate FiO2 08/11/17 19:00 73 14 203/107 (139) 97 Room Air 08/11/17 17:20 97.6 Orders Orders Complete Blood Count With Diff (08/11/17 17:38) Comprehensive Metabolic Panel (08/11/17 17:38) Urinalysis - C+S If Indicated (08/11/17 17:38) Ct Abd/Pel W Iv Contrast(Rout) (08/11/17 17:38) Sodium Chlor 0.9% 1000 Ml Inj (Ns 1000 M (08/11/17 17:45) Ondansetron Inj (Zofran Inj) (08/11/17 17:45) Hydromorphone Pf Inj (Dilaudid Pf Inj) (08/11/17 17:45) Hydromorphone Pf Inj (Dilaudid Pf Inj) (08/11/17 18:15) Urine Culture (08/11/17 18:30) Iohexol 350 Inj (Omnipaque 350 Inj) (08/11/17 19:20) Ceftriaxone Inj (Rocephin Inj) (08/11/17 19:30) Labs Laboratory Tests Test 08/11/17 18:30 White Blood Count 7.1 TH/MM3 Red Blood Count 5.16 MIL/MM3 Hemoglobin 14.1 GM/DL Hematocrit 42.7 % Mean Corpuscular Volume 82.8 FL Mean Corpuscular Hemoglobin 27.3 PG Mean Corpuscular Hemoglobin Concent 33.0 % Red Cell Distribution Width 13.6 % Platelet Count 235 TH/MM3 Mean Platelet Volume 8.1 FL Neutrophils (%) (Auto) 68.3 % Lymphocytes (%) (Auto) 21.5 % Monocytes (%) (Auto) 7.3 % Eosinophils (%) (Auto) 2.5 % Basophils (%) (Auto) 0.4 % Neutrophils # (Auto) 4.9 TH/MM3 Lymphocytes # (Auto) 1.5 TH/MM3 Monocytes # (Auto) 0.5 TH/MM3 Eosinophils # (Auto) 0.2 TH/MM3 Basophils # (Auto) 0.0 TH/MM3 CBC Comment DIFF FINAL Differential Comment Urine Color YELLOW Urine Turbidity CLEAR Urine pH 6.0 Urine Specific [place] 1.020 Urine Protein TRACE mg/dL Urine Glucose (UA) NEG mg/dL Urine Ketones NEG mg/dL Urine Occult Blood MOD Urine Nitrite POS Urine Bilirubin NEG Urine Urobilinogen 0.2 MG/DL Urine Leukocyte Esterase MOD Urine RBC 4-9 /hpf Urine WBC 9-14 /hpf Urine WBC Clumps FEW Urine Squamous Epithelial Cells 0-5 /hpf Urine Bacteria FEW /hpf Urine Mucus MOD /lpf Microscopic Urinalysis Comment CULTURE INDICATED Blood Urea Nitrogen 13 MG/DL Creatinine 0.69 MG/DL Random Glucose 104 MG/DL Total Protein 7.0 GM/DL Albumin 3.4 GM/DL Calcium Level 8.5 MG/DL Alkaline Phosphatase 104 U/L Aspartate Amino Transf (AST/SGOT) 34 U/L Alanine Aminotransferase (ALT/SGPT) 93 U/L Total Bilirubin 0.5 MG/DL Sodium Level 143 MEQ/L Potassium Level 3.8 MEQ/L Chloride Level 108 MEQ/L Carbon Dioxide Level 29.0 MEQ/L Anion Gap 6 MEQ/L Estimat Glomerular Filtration Rate 91 ML/MIN [facility] Medical Record Reviewed: Yes Supervised Visit with MONA: No Differential Diagnosis Diverticulitis versus cystitis versus renal calculus Narrative Course 46-year-old female presents with abdominal pain. Patient has a UTI. CT scan shows no evidence of acute process. She does have bilateral small kidney stones noted with no obstruction. Patient's been started on Rocephin 1 g IV 1 dose. She will be discharged with Macrobid 100 twice daily 7 days. She also be given a prescription for tramadol. She is instructed to follow-up with her primary care physician. She is also instructed return should also any worsening symptoms. Diagnosis Primary Impression: Cystitis Additional Impression: Bilateral kidney stones Additional Instruction: Drink plenty fluids. Follow-up with her primary care physician. Return if feeling worse. Med/Other Pt SpecificInfo: Prescription(s) given Scripts Tramadol (Tramadol) 50 Mg Tab 50 MG PO Q8H Y for PAIN for 3 Days, #9 TAB 0 Refills Prov: José Carson MD 08/11/17 Nitrofurantoin Monohydrate Macrocrystals (Macrobid) 100 Mg Capsule 100 MG PO BID for Infection for 7 Days, #14 CAP 0 Refills Prov: José Carson MD 08/11/17 Disposition: 01 DISCHARGE HOME Condition: Stable José Carson MD August 11, 2017 19:01
[2017-08-11] MEDS ORDERED: IOHEXOL 350 MG/ML 10 ML VIAL (for RAD DIAG) IVCONTRAST ONE (19:20)
[2017-08-11] MEDS ORDERED: cefTRIAXone INJ 1,000 MG in SODIUM CHLORIDE 0.9% INJ 100 ML IV ONE (19:30)
[2017-08-11] MEDS ORDERED: TRAM50TA PO (19:34)
[2017-08-11] MEDS ORDERED: MACR100C2 PO (19:34)
--- NOTE | 2017-08-11 19:36 | RADRPT ---
EXAM DATE/TIME: 08/11/2017 19:04 [place] COMPARISON: No previous studies available for comparison. INDICATIONS : Right lower quadrant pain. IV CONTRAST: 100 cc Omnipaque 350 (iohexol) IV ORAL CONTRAST: No oral contrast ingested. RADIATION DOSE: 22.07 CTDIvol (mGy) MEDICAL HISTORY : Hypertension. Gastroesophageal reflux disease. Renal calculi. SURGICAL HISTORY : IVC Filter placement. Hysterectomy.Cholecystectomy. ENCOUNTER: Initial ACUITY: 1 day PAIN SCALE: 7/10 LOCATION: Right lower quadrant TECHNIQUE: Volumetric scanning of the abdomen and pelvis was performed. Using automated exposure control and ad justment of the mA and/or kV according to patient size, radiation dose was kept as low as reasonably achievable to obtain optimal diagnostic quality images. DICOM format image data is available electro nically for review and comparison. FINDINGS: LOWER LUNGS: The visualized lower lungs are clear. LIVER: Diffusely diminished attenuation consistent with steatosis. No focal mass or biliary ductal dilatatio n. Gallbladder is surgically absent. SPLEEN: Normal size without lesion. PANCREAS: Within normal limits. KIDNEYS: 5-6 mm nonobstructing calculus in the renal pelvis on the right. Miniscule nonobstructing stones in t he lower pole collecting system on the left. ADRENAL GLANDS: Within normal limits. VASCULAR: IVC filter in good position. No evidence of aortic aneurysm. No evidence of major vessel occlusion or stenosis. BOWEL/MESENTERY: The stomach, small bowel, and colon demonstrate no acute abnormality. There is no free intraperitone al air or fluid. ABDOMINAL WALL: Within normal limits. RETROPERITONEUM: There is no lymphadenopathy. BLADDER: No wall thickening or mass. REPRODUCTIVE: Uterus surgically absent. No evidence of pelvic mass or free fluid. INGUINAL: There is no lymphadenopathy or hernia. MUSCULOSKELETAL: Within normal limits for patient age. CONCLUSION: Hepatic steatosis. Nonobstructing kidney stones. No acute CT findings. Julian Lopes MD on August 11, 2017 at 19:30 Board Certified Radiologist. This report was verified electronically.
[2017-08-11 20:30] VITALS: BP 205/113; PULSE 74; RESP 14; O2SAT 97
== END 2017-08-11 20:42 | disposition home or self-care (01) ==
LOC: PHED 17:14
DX: N30.90 Cystitis, unspecified without hematuria (principal); N20.0 Calculus of kidney; R11.10 Vomiting, unspecified; B96.20 Unspecified Escherichia coli [E. coli] as the cause of diseases classified elsewhere; K76.0 Fatty (change of) liver, not elsewhere classified; I10 Essential (primary) hypertension; K21.9 Gastro-esophageal reflux disease without esophagitis; I25.2 Old myocardial infarction; Z86.69 Personal history of other diseases of the nervous system and sense organs
CPT/HCPCS: 74177; 80053; 81001; 85025; 87077; 87086; 87186; 96361; 96365; 96375; 99284; J0696; J1170; J2405; J7030; Q9967

== ENCOUNTER 2017-09-01 13:01 | Emergency (ER) | payer SELFPAY ==
[~2017-09-01] VITALS: Ht 172.7 cm; Wt 102.0 kg
[~2017-09-01 13:01] MED LIST changes: -ASPI-183 PO; -CEPH-460 PO; +MACR100C2 PO; -ZOFR4TAB3 SL
[2017-09-01 13:35] VITALS: BP 216/105; PULSE 76; RESP 16; TEMP 98.6; O2SAT 98
[2017-09-01] MEDS ORDERED: SODIUM CHLOR 0.9% 1000 ML INJ 1,000 ML IV SCH (17:48)
--- NOTE | 2017-09-01 17:50 | PD ---
HPI Chief Complaint: Abdominal Pain Time Seen by Provider: 17:38 Travel History International Travel<30 days: No Contact w/Intl Traveler<30days: No Traveled to known affect area: No History of Present Illness HPI 46-year-old female with PMH of HTN, CAD, status post stenting on Xarelto presents the ED for evaluation of 8 hour history of right lower quadrant abdominal pain. Sudden onset. Maximally 10/10. Described as waxing and waning. Patient endorses accompanying nausea and vomiting. She endorses 1 episodes of loose stools. Denies hematemesis, melena, hematochezia, BRBPR. Denies fever or chills. Endorses anorexia. Denies hematuria, dysuria, vaginal discharge, back pain. Endorses history of hysterectomy less than 6 months ago. Also concerned about redness and swelling of a new tattoo on the right lower extremity. States this was present when she woke up today. She does not currently have a primary care provider. PFSH Past Medical History Hx Anticoagulant Therapy: Yes (plavix) Arthritis: No Blood Disorders: No Heart Rhythm Problems: No Cancer: No Cardiovascular Problems: Yes High Cholesterol: No Chest Pain: No Congestive Heart Failure: No Cerebrovascular Accident: No Diabetes: No Diminished Hearing: No Deep Vein Thrombosis: Yes (RT LEG) Endocrine: No Gastrointestinal Disorders: Yes GERD: Yes Genitourinary: No Headaches: Yes Hepatitis: No Hiatal Hernia: No Hypertension: Yes Immune Disorder: No Kidney Stones: Yes Musculoskeletal: No Neurologic: Yes Psychiatric: No Reproductive: No Respiratory: No Immunizations Current: Yes Migraines: No Myocardial Infarction: No Renal Failure: No Seizures: Yes (DUE TO HIGH FEVER) Thyroid Disease: No Ulcer: No ?: Not : 3 Para: 3 Tubal Ligation: Yes Past Surgical History Abdominal Surgery: Yes (SHUNT X 5) AICD: No Cardiac Surgery: No Cholecystectomy: Yes Ear Surgery: No Endocrine Surgery: No Eye Surgery: No Genitourinary Surgery: No Gynecologic Surgery: No Hysterectomy: Yes Insulin Pump: No Joint Replacement: No Neurologic Surgery: Yes (EXCISION BENIGN BRAIN TUMOUR WITH PERITONEAL SHUNT PLACEMANT AND REVISION) Oral Surgery: No Pacemaker: No Thoracic Surgery: No Other Surgery: Yes (2 STENTS PLACEMENT AND FILTER PER PT.) Social History Alcohol Use: No Tobacco Use: No (quit 2009) Substance Use: No Allergies-Medications (Allergen,Severity, Reaction): Coded Allergies: codeine (Verified Allergy, Severe, RASH, N/V, 08/11/17) phenobarbital (Verified Allergy, Severe, 08/11/17) Reported Meds & Prescriptions Reported Meds & Active Scripts Active Clindamycin (Clindamycin HCl) 150 Mg Cap 450 Mg PO Q6H 7 Days Tramadol (Tramadol HCl) 50 Mg Tab 50 Mg PO Q8H PRN 3 Days Macrobid (Nitrofurantoin Monohydrate Macrocrystals) 100 Mg Capsule 100 Mg PO BID 7 Days Reported Norvasc (Amlodipine Besylate) 10 Mg Tab 10 Mg PO DAILY Lisinopril 40 Mg Tab 40 Mg PO DAILY Plavix (Clopidogrel Bisulfate) 75 Mg Tab 75 Mg PO DAILY Review of Systems Except as stated in HPI: all other systems reviewed are Neg Physical Exam Narrative GENERAL: Well-nourished, well-developed obese white female no acute distress. SKIN: Focused skin assessment warm/dry. Large tattoo on the right lateral calf. Erythematous, edematous, tender to palpation and warm. HEAD: Normocephalic. EYES: No scleral icterus. No injection or drainage. NECK: Supple, trachea midline. No JVD or lymphadenopathy. CARDIOVASCULAR: Regular rate and rhythm without murmurs, gallops, or rubs. RESPIRATORY: Breath sounds clear and equal bilaterally. No accessory muscle use. GASTROINTESTINAL: Abdomen soft, nondistended. Hypoactive bowel sounds. Positive tenderness to palpation at McBurney's point. Rovsing sign negative. MUSCULOSKELETAL: No cyanosis, or edema. BACK: Nontender without obvious deformity. No CVA tenderness. Data Data Last Documented VS Vital Signs Date Time Temp Pulse Resp B/P (MAP) Pulse Ox O2 Delivery O2 Flow Rate FiO2 09/01/17 22:46 09/01/17 22:25 68 18 99 Room Air 09/01/17 13:35 98.6 Orders Orders Complete Blood Count With Diff (09/01/17 13:37) Comprehensive Metabolic Panel (09/01/17 13:37) Electrocardiogram (09/01/17 14:04) Lipase (09/01/17 17:48) Lactic Acid (09/01/17 17:48) Prothrombin Time / Inr (Pt) (09/01/17 17:48) Act Partial Throm Time (Ptt) (09/01/17 17:48) Urinalysis - C+S If Indicated (09/01/17 17:48) Iv Access Insert/Monitor (09/01/17 17:48) Ecg Monitoring (09/01/17 17:48) Oximetry (09/01/17 17:48) Morphine Inj (Morphine Inj) (09/01/17 18:00) Sodium Chlor 0.9% 1000 Ml Inj (Ns 1000 M (09/01/17 17:48) Sodium Chloride 0.9% Flush (Ns Flush) (09/01/17 18:00) NPO (09/01/17 17:48) Ondansetron Odt (Zofran Odt) (09/01/17 18:00) Morphine Inj (Morphine Inj) (09/01/17 20:45) Ed Discharge Order (09/01/17 22:14) Clindamycin (Cleocin) (09/01/17 22:15) Labs Laboratory Tests Test 09/01/17 19:22 09/01/17 19:30 09/01/17 20:05 Urine Color YELLOW Urine Turbidity HAZY Urine pH 6.0 Urine Specific [place] 1.024 Urine Protein TRACE mg/dL Urine Glucose (UA) NEG mg/dL Urine Ketones NEG mg/dL Urine Occult Blood NEG Urine Nitrite NEG Urine Bilirubin NEG Urine Urobilinogen LESS THAN 2.0 MG/DL Urine Leukocyte Esterase TRACE Urine RBC LESS THAN 1 /hpf Urine WBC 4 /hpf Urine Squamous Epithelial Cells 3 /hpf Urine Bacteria OCC /hpf Urine Mucus FEW /lpf Microscopic Urinalysis Comment CULT NOT INDICATED Prothrombin Time 10.0 SEC Prothromb Time International Ratio 1.0 RATIO Activated Partial Thromboplast Time 22.4 SEC Lactic Acid Level 0.9 mmol/L Lipase 138 U/L White Blood Count 7.2 TH/MM3 Red Blood Count 4.85 MIL/MM3 Hemoglobin 13.4 GM/DL Hematocrit 40.8 % Mean Corpuscular Volume 84.2 FL Mean Corpuscular Hemoglobin 27.6 PG Mean Corpuscular Hemoglobin Concent 32.8 % Red Cell Distribution Width 14.3 % Platelet Count 221 TH/MM3 Mean Platelet Volume 8.2 FL Neutrophils (%) (Auto) 68.7 % Lymphocytes (%) (Auto) 19.0 % Monocytes (%) (Auto) 9.6 % Eosinophils (%) (Auto) 2.3 % Basophils (%) (Auto) 0.4 % Neutrophils # (Auto) 5.0 TH/MM3 Lymphocytes # (Auto) 1.4 TH/MM3 Monocytes # (Auto) 0.7 TH/MM3 Eosinophils # (Auto) 0.2 TH/MM3 Basophils # (Auto) 0.0 TH/MM3 CBC Comment DIFF FINAL Differential Comment Blood Urea Nitrogen 13 MG/DL Creatinine 0.82 MG/DL Random Glucose 110 MG/DL Total Protein 6.5 GM/DL Albumin 3.4 GM/DL Calcium Level 8.3 MG/DL Alkaline Phosphatase 100 U/L Aspartate Amino Transf (AST/SGOT) 34 U/L Alanine Aminotransferase (ALT/SGPT) 99 U/L Total Bilirubin 0.4 MG/DL Sodium Level 143 MEQ/L Potassium Level 3.5 MEQ/L Chloride Level 109 MEQ/L Carbon Dioxide Level 24.2 MEQ/L Anion Gap 10 MEQ/L Estimat Glomerular Filtration Rate 74 ML/MIN MDM Medical Decision Making Medical Screen Exam Complete: Yes Emergency Medical Condition: Yes Differential Diagnosis Appendicitis versus internal hernia versus bowel obstruction versus gastroenteritis versus cellulitis versus other Narrative Course 46-year-old female with PMH of HTN, CAD, status post stenting on Xarelto presents the ED for evaluation of 8 hour history of right lower quadrant abdominal pain. Patient endorses accompanying nausea and vomiting. She endorses 1 episodes of loose stools. Also concerned about redness and swelling of a new tattoo on the right lower extremity. Vitals reviewed. Patient's hypertensive on presentation. On exam she has tenderness to palpation in the right lower quadrant. There are cellulitic changes and a tattoo on the right lateral calf. Exam otherwise unremarkable. IV was established. Patient was measured 4 mg morphine, 1 L normal saline. CBC: No leukocytosis or anemia. INR 1.0. CMP: No elevation of LFTs or bilirubin. BUN and creatinine normal. Mild calcium deficit. Lipase 138. Lactic acid 109 UA: No culture indicated Patient states pain is still 10 out of 10, request another dose of pain medication was administered 4 mg morphine. I reviewed the patient's record. BP similarly high at previous visits. Suspect noncompliance with her antihypertensives. She has had multiple visits with similar abdominal complaint , received multiple doses of Dilaudid at each visit. She has had imaging in the past month that was negative. I do not think CT would be beneficial. We will treat the cellulitis with clindamycin 450mg 3 times daily 7 days. Patient is given strict return instructions if the cellulitis worsen. She indicated understanding of the instructions and is agreeable to the care plan. She is stable and discharged home. Diagnosis Primary Impression: Chronic abdominal pain Additional Impression: Cellulitis of right lower extremity without foot Referrals: [facility] Additional Instructions: Rest, hydrate. Begin antibiotics tomorrow and take them until every pill is gone. Keep the wound clean and dry. Monitor for signs of worsening infection including fevers, chills, spreading of the redness, markedly increased pain. Follow up with the [facility]. Return to the ED for worsening symptoms or any urgent/ emergent medical condition. Med/Other Pt SpecificInfo: Prescription(s) given Scripts Clindamycin (Clindamycin) 150 Mg Cap 450 MG PO Q6H for Infection for 7 Days, #84 CAP 0 Refills Prov: Fanny Walker MD 09/01/17 Disposition: 01 DISCHARGE HOME Condition: Stable Jes Sims Sep 01, 2017 17:50
[2017-09-01] MEDS ORDERED: ONDANSETRON ODT 4 MG TAB PO ONE (18:00)
[2017-09-01] MEDS ORDERED: MORPHINE SULFATE 4 MG/ML INJ IV PUSH ONE ×2 (18:00→20:45)
[2017-09-01] MEDS ORDERED: SODIUM CHLORIDE 0.9% FLUSH 10 ML FLUSH IV FLUSH PRN (18:00)
[2017-09-01 19:52] LABS: BACTERIA, URINE OCC /hpf; BILIRUBIN, URINE NEG (NEG); BLOOD, URINE NEG (NEG); GLUCOSE,URINE NEG (NEG); KETONE, URINE NEG (NEG); MUCUS URINE FEW /lpf (OCC); NITRITE,URINE NEG (NEG); SQUAMOUS EPITHELIAL CELL URINE 3 /hpf (0-5); URINE COLOR YELLOW (YELLW/STRAW); URINE LEUKOCYTE ESTERASE TRACE (NEG)
[2017-09-01 20:40] VITALS: BP 197/94; PULSE 66; RESP 16; O2SAT 98
[2017-09-01 21:21] LABS: BASOPHIL % 0.4 % (0.0-2.0); EOSINOPHIL # 0.2 TH/MM3 (0-0.4); EOSINOPHIL % 2.3 % (0.0-4.0); HEMATOCRIT 40.8 % (35.0-46.0); HEMOGLOBIN 13.4 GM/DL (11.6-15.3); LYMPHOCYTE # 1.4 TH/MM3 (1.0-4.8); MEAN CELL VOLUME 84.2 FL (80.0-100.0); MEAN CORPUSCULAR HEMOGLOBIN 27.6 PG (27.0-34.0); MEAN CORPUSCULAR HGB CONC 32.8 % (32.0-36.0); MEAN PLATELET VOLUME 8.2 FL (7.0-11.0); MONO % 9.6 % (0.0-8.0); MONOCYTE # 0.7 TH/MM3 (0-0.9); NEUT % 68.7 % (16.0-70.0); PLATELET COUNT 221 TH/MM3 (150-450); RED BLOOD COUNT 4.85 MIL/MM3 (4.00-5.30); RED CELL DISTRIBUTION WIDTH 14.3 % (11.6-17.2); WHITE BLOOD COUNT 7.2 TH/MM3 (4.0-11.0)
[2017-09-01 21:43] LABS: ALBUMIN 3.4 GM/DL (3.4-5.0); ALT (GPT) 99 U/L (10-53); AST (GOT) 34 U/L (15-37); BICARBONATE 24.2 MEQ/L (21.0-32.0); BLOOD UREA NITROGEN 13 MG/DL (7-18); CALCIUM 8.3 MG/DL (8.5-10.1); CHLORIDE 109 MEQ/L (98-107); CREATININE 0.82 MG/DL (0.50-1.00); GLOMERULAR FILTRATION RATE 74 ML/MIN (>89); GLUCOSE,RANDOM 110 MG/DL (74-106); SODIUM (NA) 143 MEQ/L (136-145)
[2017-09-01 21:46] LABS: ALKALINE PHOSPHATASE 100 U/L (45-117); TOTAL BILIRUBIN ADULT 0.4 MG/DL (0.2-1.0); TOTAL PROTEIN 6.5 GM/DL (6.4-8.2)
[2017-09-01] MEDS ORDERED: CLIN150C14 PO (22:15)
[2017-09-01] MEDS ORDERED: SULFAMETHOXAZOLE-TRIMETHOPRIM DS 800-160 MG TAB PO ONE (22:15)
[2017-09-01] MEDS ORDERED: CLINDAMYCIN 150 MG CAP PO ONE (22:15)
[2017-09-01 22:25] VITALS: BP 174/100; PULSE 68; RESP 18; O2SAT 99
--- NOTE | 2017-09-02 16:19 | EKG ---
Date Performed: 09/01/2017 Time Performed: 14:04:25 PTAGE: 46 years EKG: Sinus rhythm NONSPECIFIC T-WAVE ABNORMALITY ABNORMAL ECG PREVIOUS TRACING 07/29/06 Probable left ventricular hypertrophy. Since the prior tracing, there is an increase in ventricular voltage, and the inferolateral T-wave changes are new. Myocardial ische rica should be excluded, but studies are more consistent with progressive left ventricular hypertrophy . DOCTOR: Felicitas Cherry Interpretating Date/Time 09/02/2017 16:18:12
--- NOTE | 2017-09-02 18:19 | PD ---
Physical Exam Narrative Please note that although I was listed as a co-signor of this note, I neither saw the patient nor was I made aware of the patient nor did I personally write a prescription for this patient or discuss prescriptions for this patient. Data Data Last Documented VS Vital Signs Date Time Temp Pulse Resp B/P (MAP) Pulse Ox O2 Delivery O2 Flow Rate FiO2 09/01/17 22:46 09/01/17 22:25 68 18 99 Room Air 09/01/17 13:35 98.6 Orders Orders Complete Blood Count With Diff (09/01/17 13:37) Comprehensive Metabolic Panel (09/01/17 13:37) Electrocardiogram (09/01/17 14:04) Lipase (09/01/17 17:48) Lactic Acid (09/01/17 17:48) Prothrombin Time / Inr (Pt) (09/01/17 17:48) Act Partial Throm Time (Ptt) (09/01/17 17:48) Urinalysis - C+S If Indicated (09/01/17 17:48) Iv Access Insert/Monitor (09/01/17 17:48) Ecg Monitoring (09/01/17 17:48) Oximetry (09/01/17 17:48) Morphine Inj (Morphine Inj) (09/01/17 18:00) Sodium Chlor 0.9% 1000 Ml Inj (Ns 1000 M (09/01/17 17:48) Sodium Chloride 0.9% Flush (Ns Flush) (09/01/17 18:00) NPO (09/01/17 17:48) Ondansetron Odt (Zofran Odt) (09/01/17 18:00) Morphine Inj (Morphine Inj) (09/01/17 20:45) Ed Discharge Order (09/01/17 22:14) Clindamycin (Cleocin) (09/01/17 22:15) Labs Laboratory Tests Test 09/01/17 19:22 09/01/17 19:30 09/01/17 20:05 Urine Color YELLOW Urine Turbidity HAZY Urine pH 6.0 Urine Specific [place] 1.024 Urine Protein TRACE mg/dL Urine Glucose (UA) NEG mg/dL Urine Ketones NEG mg/dL Urine Occult Blood NEG Urine Nitrite NEG Urine Bilirubin NEG Urine Urobilinogen LESS THAN 2.0 MG/DL Urine Leukocyte Esterase TRACE Urine RBC LESS THAN 1 /hpf Urine WBC 4 /hpf Urine Squamous Epithelial Cells 3 /hpf Urine Bacteria OCC /hpf Urine Mucus FEW /lpf Microscopic Urinalysis Comment CULT NOT INDICATED Prothrombin Time 10.0 SEC Prothromb Time International Ratio 1.0 RATIO Activated Partial Thromboplast Time 22.4 SEC Lactic Acid Level 0.9 mmol/L Lipase 138 U/L White Blood Count 7.2 TH/MM3 Red Blood Count 4.85 MIL/MM3 Hemoglobin 13.4 GM/DL Hematocrit 40.8 % Mean Corpuscular Volume 84.2 FL Mean Corpuscular Hemoglobin 27.6 PG Mean Corpuscular Hemoglobin Concent 32.8 % Red Cell Distribution Width 14.3 % Platelet Count 221 TH/MM3 Mean Platelet Volume 8.2 FL Neutrophils (%) (Auto) 68.7 % Lymphocytes (%) (Auto) 19.0 % Monocytes (%) (Auto) 9.6 % Eosinophils (%) (Auto) 2.3 % Basophils (%) (Auto) 0.4 % Neutrophils # (Auto) 5.0 TH/MM3 Lymphocytes # (Auto) 1.4 TH/MM3 Monocytes # (Auto) 0.7 TH/MM3 Eosinophils # (Auto) 0.2 TH/MM3 Basophils # (Auto) 0.0 TH/MM3 CBC Comment DIFF FINAL Differential Comment Blood Urea Nitrogen 13 MG/DL Creatinine 0.82 MG/DL Random Glucose 110 MG/DL Total Protein 6.5 GM/DL Albumin 3.4 GM/DL Calcium Level 8.3 MG/DL Alkaline Phosphatase 100 U/L Aspartate Amino Transf (AST/SGOT) 34 U/L Alanine Aminotransferase (ALT/SGPT) 99 U/L Total Bilirubin 0.4 MG/DL Sodium Level 143 MEQ/L Potassium Level 3.5 MEQ/L Chloride Level 109 MEQ/L Carbon Dioxide Level 24.2 MEQ/L Anion Gap 10 MEQ/L Estimat Glomerular Filtration Rate 74 ML/MIN [facility] Supervised Visit with MONA: No [facility] Patient Instructions: General Instructions, Narcotic given in the ED Departure Forms: Tests/Procedures Additional Instruction: Rest, hydrate. Begin antibiotics tomorrow and take them until every pill is gone. Keep the wound clean and dry. Monitor for signs of worsening infection including fevers, chills, spreading of the redness, markedly increased pain. Follow up with the [facility]. Return to the ED for worsening symptoms or any urgent/ emergent medical condition. Scripts Clindamycin (Clindamycin) 150 Mg Cap 450 MG PO Q6H for Infection for 7 Days, #84 CAP 0 Refills Prov: Fanny Walker MD 09/01/17 Disposition: 01 DISCHARGE HOME Condition: Stable Fanny Walker MD Sep 02, 2017 18:19
== END 2017-09-01 22:48 | disposition home or self-care (01) ==
LOC: NEPC 13:01
DX: R10.31 Right lower quadrant pain (principal); G89.29 Other chronic pain; L03.115 Cellulitis of right lower limb; I10 Essential (primary) hypertension; Z79.02 Long term (current) use of antithrombotics/antiplatelets; Z87.891 Personal history of nicotine dependence
CPT/HCPCS: 80053; 81001; 83605; 83690; 85025; 85610; 85730; 93005; 99284; J2270; J7030

== ENCOUNTER 2018-01-02 00:18 | Observation (INO) ==
--- NOTE | 2018-01-02 00:59 | XR ---
EXAM DATE: 01/02/2018 12:35 AM EDT AGE/SEX: 47 years / Female INDICATIONS: Chest pain and shortness of breath since yesterday morning. CLINICAL DATA: This is the patient's initial encounter. Patient reports that signs and symptoms have been present for 2 days and indicates a pain score of 8/10. MEDICAL/SURGICAL HISTORY: . Hypertension. Renal calculi. Gastroesophageal reflux disease. DVT. . Cholecystectomy. Hysterectomy. IVC Filter placement. Stent COMPARISON: No prior exams available for comparison. FINDINGS: The cardiac silhouette is enlarged in transverse diameter. The lungs are free of acute parenchymal op acity. No effusions are identified. CONCLUSION: Cardiomegaly. No acute pulmonary disease. Electronically signed by: Dewayne Owen MD 01/02/2018 12:57 AM EDT
[2018-01-02 01:01] LABS: Chloride 106 meq/L (98-107); Potassium 3.3 meq/L (3.5-5.1); Sodium 142 meq/L (136-145)
[2018-01-02 01:04] LABS: Anion Gap 9 meq/L (5-15); Blood Urea Nitrogen 15 mg/dL (7-18); Calcium 8.4 mg/dL (8.5-10.1); Carbon Dioxide 27.2 meq/L (21.0-32.0); Glucose,Random 127 mg/dL (74-106)
[2018-01-02] MEDS ORDERED: Morphine Inj 4 MG/ML Vial IV.PUSH ONE ×2 (01:04→03:04)
[2018-01-02] MEDS ORDERED: Acetaminophen 325 MG Tablet PO ONE (01:05)
[2018-01-02 01:07] LABS: Alanine Aminotransferase 129 U/L (10-53); Aspartate Aminotransferase 49 U/L (15-37)
[2018-01-02 01:08] LABS: Glomerular Filtration Rate 59 mL/min (>89)
[2018-01-02 01:09] LABS: Total Protein 7.5 g/dL (6.4-8.2)
[2018-01-02] MEDS: Sod Chloride 0.9% Inj 1,000 ML IV.CONT SCH ×2 (01:09→12:25)
[2018-01-02 01:10] LABS: Alkaline Phosphatase 128 U/L (45-117)
[2018-01-02 01:18] LABS: Hematocrit 43.8 % (35.0-46.0); Hemoglobin 14.8 gm/dL (11.6-15.3); Mean Corpuscular HGB Conc 33.8 % (32.0-36.0); Mean Corpuscular Volume 85.7 fL (80.0-100.0); Mean Platelet Volume 8.6 fL (7.0-11.0); Platelet Count 198 th/mm3 (150-450); Red Blood Count 5.11 mil/mm3 (4.00-5.30); Red Cell Distribution Width 13.2 % (11.6-17.2); White Blood Count 8.4 th/mm3 (4.0-11.0)
[2018-01-02 02:01] LABS: Eosinophils 3 % (0-4); Lymphocytes 36 % (9-44); Monocytes 5 % (0-8); Platelet Estimate Normal (Normal); Platelet Morphology Normal (Normal); RBC Morphology Normal (Normal)
--- NOTE | 2018-01-02 02:03 | ED ---
HPI General Chief Complaint: Chest Pain Stated Complaint: chest pain Time Seen by Provider: 01/02/18 00:47 Source: patient Mode of arrival: ambulatory Limitations: no limitations History of Present Illness HPI narrative: 47-year-old female presents to the emergency department for complaint of retrosternal chest pain with associated nausea shortness of breath and mild diaphoresis. Prior history of myocardial infarction cardiac catheter x6. Patient has not followed up with a local driver/sales workers since moving to the area sometime ago. Patient has high blood pressure dyslipidemia denies diabetes. Positive tobacco use. Patient rates her pain 8/10 in intensity and has been present for several hours. Patient denies any referred neck jaw back shoulder arm pain. Patient did take aspirin earlier in the evening. No recent long distance travel protracted bedrest surgical procedure lower extremity pain or swelling pleuritic pain; no recent febrile illness. MD complaint: Reports chest pain STEMI Alert: No Onset (ago): hour(s) Duration: constant Onset: during exertion Pain location: Reports substernal Severity: severe Severity scale (1-10): 8 Quality: Reports aching, heaviness and dull Pain radiation: Reports none Relieving factors: nothing Exacerbating factors: nothing Context: Reports history of DVT/PE; Denies recent illness, recent surgery, recent immobilization, recent travel, trauma/injury and new medications Associated symptoms: Reports nausea, diaphoresis and dyspnea; Denies vomiting, sense of impending doom, syncope, palpitations, fever, cough and leg swelling Treatments prior to arrival chest pain: Reports aspirin Related Data On Oral Contraceptives: No Home Medications Medication Instructions Recorded Confirmed amlodipine [Norvasc] 10 mg PO DAILY 01/02/18 01/02/18 aspirin 325 mg PO QPM 01/02/18 01/02/18 clopidogrel [Plavix] 75 mg PO DAILY 01/02/18 01/02/18 lisinopril 40 mg PO DAILY 01/02/18 01/02/18 Allergies Allergy/AdvReac Type Severity Reaction Status Date / Time codeine Allergy Severe RASH, N/V Verified 08/11/17 17:23 phenobarbital Allergy Severe Verified 08/11/17 17:23 Review of Systems ROS: all other systems reviewed are negative PMFSH History History Provided By: Patient (Pseudotumor cerebri DIE CLEANER shunt DVT Tayler filter hysterectomy VA stents x6 cholecystectomy hypertension childhood febrile seizure tobacco use) Medical History Medical History Brain tumor (Acute) History of hysterectomy (Acute) Myocardial infarction (Acute) Surgical History Surgical History History of heart artery stent (Acute) Hx of cholecystectomy (Acute) Social History Social History Substance History: No History of Abuse Second Hand Smoke Exposure: No Smoking Status: Former smoker Tobacco Type: Cigarettes How Often Do You Have a Drink Containing Alcohol: Never Recent Out of Country Travel within the Last 8 Weeks: No Immunization History Tetanus Immunization: <5 Years Hx Influenza Vaccine This Season: No Exam Narrative Exam Narrative: GENERAL: Well-nourished, well-developed patient. SKIN: Focused skin assessment warm/dry. HEAD: Normocephalic. EYES: No scleral icterus. No injection or drainage. NECK: Supple, trachea midline. No JVD or lymphadenopathy. CARDIOVASCULAR: Regular rate and rhythm without murmurs, gallops, or rubs. RESPIRATORY: Breath sounds equal bilaterally. No accessory muscle use. GASTROINTESTINAL: Abdomen soft, non-tender, nondistended. MUSCULOSKELETAL: No cyanosis, or edema. BACK: Nontender without obvious deformity. No CVA tenderness. Course Initial Documented Vital Signs Temperature 98.0 F 01/02/18 00:20 Pulse Rate 71 01/02/18 00:20 Respiratory Rate 20 01/02/18 00:20 Blood Pressure 220/108 H 01/02/18 00:20 Pulse Oximetry 99 01/02/18 00:20 Last Documented Vital Signs Temperature 98.0 F 01/02/18 00:20 Pulse Rate 73 01/02/18 06:02 Respiratory Rate 20 01/02/18 06:02 Blood Pressure 144/88 H 01/02/18 06:02 Pulse Oximetry 96 01/02/18 06:02 Medical Decision Making MDM Narrative Medical decision making narrative: 47-year-old female presents to the emergency department for chest pain over 10 intensity with known history of coronary vessel disease hypertension and dyslipidemia patient placed on wireless network engineer IV access obtained specimens collected and sent for resulting EKG performed EKG is normal sinus rhythm no acute ST elevation injury pattern or ectopy noted Cardiac enzymes are normal range Patient given aspirin 162 mg by mouth along with some patient with development of nitro glycerin related headache Pain has changed from 11/07--10/07 patient states often times she does not get symptom relief with nitroglycerin. For headache she was given Tylenol 650 mg and morphine sulfate 4 mg IV along with Zofran 4 mg IV. Patient states Zofran has helped her nausea headache is improved but chest pain is persistent Patient reports feeling very anxious and stressed. Patient states chest pain is not worsening. Patient given Ativan 0.5 mg IV. Patient aware the cardiac enzymes are found to be in normal range EKG shows no acute injury pattern change in chest x-ray shows no acute abnormality plan will be to admit patient to chest pain center per protocol; call [facility] to [facility] MD Patient agrees to admission; persistent chest pain repeat trponin I also less than 0.02, ck 290 but mb% 1.5% not elevated PE CTA negativve for PE and per reading radiologist no reported calcifications; patient changed to ntg infusion administered heparin with bolus and admit to [facility] step down. Medical Screen Exam Complete: Yes Emergency Medical Condition: Yes Differential Diagnosis Differential Diagnosis: Chest pain, ACS, VA, dissection, uncontrolled hypertension, PE Medical Records Medical records reviewed: Yes I reviewed the patient's medical records. Lab Data Lab results reviewed: Yes I reviewed the patient's lab results. Result diagrams: 01/02/18 00:45 01/02/18 00:45 Lab Results 01/02/18 01/02/18 01/02/18 Range/Units 00:45 00:45 03:55 CBC w Diff Slide review pending WBC 8.4 (4.0-11.0) th/mm3 RBC 5.11 (4.00-5.30) mil/mm3 Hgb 14.8 (11.6-15.3) gm/dL Hct 43.8 (35.0-46.0) % MCV 85.7 (80.0-100.0) fL MCH 29.0 (27.0-34.0) pg MCHC 33.8 (32.0-36.0) % RDW 13.2 (11.6-17.2) % Plt Count 198 (150-450) th/mm3 MPV 8.6 (7.0-11.0) fL WBC Differential Manual diff final Seg Neuts % (Manual) 54 (16-70) % Band Neuts % (Manual) 1 (0-6) % Lymphocytes % (Manual) 36 (9-44) % Monocytes % (Manual) 5 (0-8) % Eosinophils % (Manual) 3 (0-4) % Basophils % (Manual) 1 (0-2) % Abs Neuts (Manual) 4.6 (1.8-7.7) th/mm3 Differential Comment . Platelet Estimate Normal (Normal) Platelet Morphology Normal (Normal) RBC Morphology Normal (Normal) PT (9.8-11.6) sec INR Ratio APTT (24.3-30.1) sec Sodium 142 (136-145) meq/L Potassium 3.3 L (3.5-5.1) meq/L Chloride 106 (98-107) meq/L Carbon Dioxide 27.2 (21.0-32.0) meq/L Anion Gap 9 (5-15) meq/L BUN 15 (7-18) mg/dL Creatinine 1.00 (0.50-1.00) mg/dL Estimated GFR 59 L (>89) mL/min Random Glucose 127 H (74-106) mg/dL Calcium 8.4 L (8.5-10.1) mg/dL Total Bilirubin 0.5 (0.2-1.0) mg/dL AST 49 H (15-37) U/L ALT 129 H (10-53) U/L Alkaline Phosphatase 128 H (45-117) U/L Total Creatine Kinase 290 H (26-192) U/L CK-MB (CK-2) 4.4 H (0.5-3.6) ng/mL CK-MB (CK-2) % 1.5 (0.0-4.0) % Troponin I Less than 0.02 L Less than 0.02 L (0.02-0.05) ng/mL Total Protein 7.5 (6.4-8.2) g/dL Albumin 4.0 (3.4-5.0) g/dL 01/02/18 Range/Units 05:00 CBC w Diff WBC (4.0-11.0) th/mm3 RBC (4.00-5.30) mil/mm3 Hgb (11.6-15.3) gm/dL Hct (35.0-46.0) % MCV (80.0-100.0) fL MCH (27.0-34.0) pg MCHC (32.0-36.0) % RDW (11.6-17.2) % Plt Count (150-450) th/mm3 MPV (7.0-11.0) fL WBC Differential Seg Neuts % (Manual) (16-70) % Band Neuts % (Manual) (0-6) % Lymphocytes % (Manual) (9-44) % Monocytes % (Manual) (0-8) % Eosinophils % (Manual) (0-4) % Basophils % (Manual) (0-2) % Abs Neuts (Manual) (1.8-7.7) th/mm3 Differential Comment Platelet Estimate (Normal) Platelet Morphology (Normal) RBC Morphology (Normal) PT 10.5 (9.8-11.6) sec INR 1.0 Ratio APTT 22.9 L (24.3-30.1) sec Sodium (136-145) meq/L Potassium (3.5-5.1) meq/L Chloride (98-107) meq/L Carbon Dioxide (21.0-32.0) meq/L Anion Gap (5-15) meq/L BUN (7-18) mg/dL Creatinine (0.50-1.00) mg/dL Estimated GFR (>89) mL/min Random Glucose (74-106) mg/dL Calcium (8.5-10.1) mg/dL Total Bilirubin (0.2-1.0) mg/dL AST (15-37) U/L ALT (10-53) U/L Alkaline Phosphatase (45-117) U/L Total Creatine Kinase (26-192) U/L CK-MB (CK-2) (0.5-3.6) ng/mL CK-MB (CK-2) % (0.0-4.0) % Troponin I (0.02-0.05) ng/mL Total Protein (6.4-8.2) g/dL Albumin (3.4-5.0) g/dL Imaging Data Radiologist's impression: Chest X-Ray 01/02/18 00:35 CONCLUSION: Cardiomegaly. No acute pulmonary disease. Chest CTA 01/02/18 02:33 CONCLUSION: No evidence of pulmonary embolism. ECG Data EKG Prior to Arrival: No Prior ECG tracings: not available for review Interpretation: EKG: Normal sinus rhythm rate 65 LVH by voltage criterion no acute ST elevation Discharge Plan Discharge Disposition Patient Disposition: 30 Still Patient Discharge Condition Condition: Stable Discharge Details Diagnosis: Chest pain, ACS (acute coronary syndrome) Physicians Team ED Provider: Luz Maria An Primary Care Provider: Primary Care Alexandria Messer Attending Provider: Willie Moore Other Providers: Minor,Alexander Status ED Status: Admitted Observation Patient
[2018-01-02] MEDS ORDERED: Ketorolac Inj 30 MG/ML (IVP) Vial IV.PUSH ONE (03:52)
[2018-01-02] MEDS ORDERED: Nitroglycerin Drip Premix 50 MG/250 ML BOTTLE IV.CONT PRN (04:18)
--- NOTE | 2018-01-02 04:26 | CT ---
EXAM DATE: 01/02/2018 2:42 AM EDT AGE/SEX: 47 years / Female INDICATIONS: Chest pain. CLINICAL DATA: This is the patient's initial encounter. Patient reports that signs and symptoms have been present for 1 day and indicates a pain score of 6/10. MEDICAL/SURGICAL HISTORY: . Brain tumor. Myocardial infarction. Cholecystectomy. Hysterectomy. He art artery stent. RADIATION DOSE: 21.85 CTDI (mGy) COMPARISON: No prior exams available for comparison. TECHNIQUE: Volumetric scanning was performed using a multi-row detector CT scanner during bolus infu meghan of 75 ml Omnipaque 350 (iohexol) nonionic water-soluble contrast as a single exam dose. The sarah a was post processed with a variety of visualization algorithms including full volume maximum intensi ty projection and sliding thin slab reformation. Using automated exposure control and adjustment of the mA and/or kV according to patient size, radiation dose was kept as low as reasonably achievable t o obtain optimal diagnostic quality images. DICOM format image data is available electronically for review and comparison. FINDINGS: Examination of the pulmonary vasculature demonstrates good filling of the main, lobar and segmental b ranches. There are no filling defects to suggest pulmonary embolism. Multiplanar reconstructions are also unremarkable. The lungs are free of acute parenchymal opacity. No pulmonary nodules or pleural effusions are identi fied. Examination of the mediastinum demonstrates no abnormally enlarged lymph nodes by CT criteria. No axillary or hilar abnormalities are identified. Coronary artery calcifications are not present. T here is decreased density of the liver with respect to the spleen compatible with fatty infiltration. The spleen is unremarkable. CONCLUSION: No evidence of pulmonary embolism. Electronically signed by: Dewayne Owen MD 01/02/2018 4:25 AM EDT
[2018-01-02 04:27] LABS: Creatine Kinase 290 U/L (26-192)
[2018-01-02 04:39] LABS: CKMB Percent 1.5 % (0.0-4.0); Creatine Kinase MB 4.4 ng/mL (0.5-3.6)
[2018-01-02] MEDS ORDERED: Heparin 10,000 UNITS/10 ML Vial (for IV use) IV.PUSH STA (04:52)
[2018-01-02] MEDS ORDERED: Heparin Drip 25,000 UNIT/250 ML BAG IV.CONT PRN (04:52)
[2018-01-02] MEDS ORDERED: Sodium Chlor 0.9% Inj 500 ML IV.SIG SCH (05:00)
[2018-01-02 05:40] LABS: Activated Partial Thrombo Time 22.9 sec (24.3-30.1); Prothrombin Time 10.5 sec (9.8-11.6)
[2018-01-02 06:29] LABS: Bilirubin,Urine Negative (Negative); Clarity,Urine Cloudy (Clear); Color,Urine Yellow (Yellw/Straw); Glucose,Urine (UA) Negative (Negative); Leukocyte Esterase,Urine Negative (Negative); Nitrite,Urine Negative (Negative); Urobilinogen,Urine 0.2 mg/dL (Less than 2)
[2018-01-02 06:55] LABS: Amorphous Sediment,Urine Moderate /hpf; RBC,Urine 0-3 /hpf (0-3); Squamous Epithelial Cell,Urine 0-5 /hpf (0-5); WBC,Urine 0-5 /hpf (0-5)
[2018-01-02 07:34] LABS: Hematocrit 40.2 % (35.0-46.0); Hemoglobin 13.5 gm/dL (11.6-15.3); Mean Corpuscular HGB Conc 33.6 % (32.0-36.0); Mean Corpuscular Hemoglobin 28.4 pg (27.0-34.0); Mean Corpuscular Volume 84.4 fL (80.0-100.0); Mean Platelet Volume 8.7 fL (7.0-11.0); Platelet Count 204 th/mm3 (150-450); Red Blood Count 4.76 mil/mm3 (4.00-5.30); Red Cell Distribution Width 13.9 % (11.6-17.2); White Blood Count 6.5 th/mm3 (4.0-11.0)
[2018-01-02 07:52] LABS: Creatine Kinase 261 U/L (26-192)
--- NOTE | 2018-01-02 07:57 | P.CONCA ---
History of Present Illness Primary Care Provider: No Primary Care Physician Family Provider: No Primary Care Physician History of Present Illness: 47-year-old female with a past medical history of CAD, HTN who presented for chest pain. The patient states she had 1-2 minutes of chest pain and shortness of breath at rest yesterday morning which resolved. She states later in the evening at rest she developed substernal chest discomfort that has not gone away. No improvement with nitroglycerin overnight, reports morphine in the ED was the only thing that helped. She is previously followed with a special education classroom aide in [facility]. She reports her last catheterization and stent placement was about a year and a half ago. She states her prior angina with her stents is "always different", so she cannot say if her current symptoms are typical of past anginal pain. She quit smoking 8 years ago. Reports compliance with aspirin and Plavix at home. EKG shows inferolateral T wave inversions, similar to [place]. Troponin 0 0.02 x 2. Pulmonary angiogram negative for PE. She states her stress tests are "always abnormal". Review of Systems All other systems reviewed negative except as stated in [facility] - History History Provided By: Patient - Medical History Medical History: Medical History (Last Reviewed 01/02/18 @ 02:25 by Luz Maria An MD) Brain tumor History of hysterectomy Myocardial infarction - Surgical History Surgical History: Surgical History (Last Reviewed 01/02/18 @ 02:25 by Luz Maria An MD) History of heart artery stent Hx of cholecystectomy - Tobacco History Second Hand Smoke Exposure: Yes Tobacco Use In Past 30 Days: Yes Smoking Status: Former smoker Tobacco Type: Cigarettes - Alcohol History How Often Do You Have a Drink Containing Alcohol: 2 to 4 times a month - Substance Use History Substance History: No History of Abuse - Travel History Recent Travel Out of the Country Within the Last 8 Weeks: No - Immunization History Tetanus Immunization: Never Vaccinated Hx Influenza Vaccine This Season: No Medications and Allergies Active Medications: Active Medications Amlodipine Besylate (Norvasc) 10 mg PO DAILY GASTON Clopidogrel Bisulfate (Plavix) 75 mg PO DAILY GASTON Sodium Chloride (Ns Inj) 1,000 mls @ 100 mls/hr IV.CONT .Q10H GASTON Last Infusion: 01/02/18 06:26 Dose: 100 mls/hr Sodium Chloride (Ns Inj) 500 mls @ 0 mls/hr IV.SIG BOLUS GASTON Last Infusion: 01/02/18 05:20 Dose: Infused Heparin Sodium/Dextrose (Heparin/D5w 25,000 U/250 Ml) 25,000 unit in 250 mls @ 0 mls/hr IV.CONT TITRATE PRN; Protocol PRN Reason: Per Protocol Last Titration: 01/02/18 06:26 Dose: 1,000 units/hr, 10 mls/hr Nitroglycerin (Nitro-Bid 2% Oint) 1 inch TOPICAL Q6HR GASTON Non-Formulary Medication (Lisinopril [Lisinopril]) 40 mg PO DAILY GASTON Ondansetron HCl (Zofran Inj) 4 mg IV.PUSH Q6H PRN PRN Reason: NAUSEA OR VOMITING Sodium Chloride (Ns Inj) 2 ml IV.FLUSH BID GASTON Sodium Chloride (Ns Inj) 2 ml IV.FLUSH UNSCH PRN PRN Reason: FLUSH AFTER USING IV ACCESS Allergies Allergy/AdvReac Type Severity Reaction Status Date / Time codeine Allergy Severe RASH, N/V Verified 08/11/17 17:23 phenobarbital Allergy Severe Verified 08/11/17 17:23 Home Medications Medication Instructions Recorded Confirmed Type amlodipine [Norvasc] 10 mg PO DAILY 01/02/18 01/02/18 History aspirin 325 mg PO QPM 01/02/18 01/02/18 History clopidogrel [Plavix] 75 mg PO DAILY 01/02/18 01/02/18 History lisinopril 40 mg PO DAILY 01/02/18 01/02/18 History Exam Vital signs: Vital Signs 01/02/18 00:20 01/02/18 01:01 01/02/18 01:04 Temperature 98.0 F Pulse Rate 65 68 75 Respiratory Rate 20 20 18 Blood Pressure 220/108 H 212/105 H 195/107 H Blood Pressure [Left Arm] 195/107 H Blood Pressure [Right Arm] 212/105 H Pulse Oximetry 96 96 97 01/02/18 01:11 01/02/18 01:40 01/02/18 01:59 Temperature Pulse Rate 66 64 Respiratory Rate 20 Blood Pressure 166/91 H Blood Pressure [Left Arm] Blood Pressure [Right Arm] Pulse Oximetry 96 96 01/02/18 02:05 01/02/18 03:01 01/02/18 03:41 Temperature Pulse Rate 59 L 62 Respiratory Rate 20 20 Blood Pressure 183/92 H 178/88 H Blood Pressure [Left Arm] Blood Pressure [Right Arm] Pulse Oximetry 98 98 98 01/02/18 04:00 01/02/18 05:04 01/02/18 06:02 Temperature Pulse Rate 75 61 73 Respiratory Rate 18 20 20 Blood Pressure 132/67 154/81 H 144/88 H Blood Pressure [Left Arm] Blood Pressure [Right Arm] Pulse Oximetry 95 95 96 01/02/18 06:54 Temperature Pulse Rate 77 Respiratory Rate Blood Pressure Blood Pressure [Left Arm] Blood Pressure [Right Arm] Pulse Oximetry Intake & Output 01/01/18 01/02/18 01/02/18 18:59 06:59 18:59 Intake Total 500 / 500 Balance 500 / 500 Weight 238 lb 1.588 oz Intake: IV 500 / 500 NS Inj 500 ML @ Wide Open IV. 500 / 500 SIG BOLUS GASTON Rx#:[id number] Other: Weight On Admission 238 lb 1.588 oz Narrative: GENERAL: Well-developed well-nourished. Appears comfortable and in no acute distress. NECK: No carotid bruits. No JVD. CARDIOVASCULAR: Regular rate and rhythm. No murmur appreciated. RESPIRATORY: No accessory muscle use. Clear to auscultation. Breath sounds equal bilaterally. MUSCULOSKELETAL: No clubbing or cyanosis. No edema. NEUROLOGICAL: Awake and alert. Normal speech. Results 01/02/18 06:45 01/02/18 00:45 Cardiac Enzymes 01/02/18 01/02/18 Range/Units 00:45 03:55 AST 49 H (15-37) U/L CK-MB (CK-2) 4.4 H (0.5-3.6) ng/mL Troponin I Less than 0.02 L Less than 0.02 L (0.02-0.05) ng/mL Coagulation 01/02/18 Range/Units 05:00 PT 10.5 (9.8-11.6) sec APTT 22.9 L (24.3-30.1) sec CBC 01/02/18 01/02/18 Range/Units 00:45 06:45 WBC 8.4 6.5 (4.0-11.0) th/mm3 RBC 5.11 4.76 (4.00-5.30) mil/mm3 Hgb 14.8 13.5 (11.6-15.3) gm/dL Hct 43.8 40.2 (35.0-46.0) % Plt Count 198 204 (150-450) th/mm3 Comprehensive Metabolic Panel 01/02/18 Range/Units 00:45 Sodium 142 (136-145) meq/L Potassium 3.3 L (3.5-5.1) meq/L Chloride 106 (98-107) meq/L Carbon Dioxide 27.2 (21.0-32.0) meq/L BUN 15 (7-18) mg/dL Creatinine 1.00 (0.50-1.00) mg/dL Calcium 8.4 L (8.5-10.1) mg/dL AST 49 H (15-37) U/L ALT 129 H (10-53) U/L Alkaline Phosphatase 128 H (45-117) U/L Total Protein 7.5 (6.4-8.2) g/dL Albumin 4.0 (3.4-5.0) g/dL Intake and Output 01/01/18 01/02/18 01/02/18 22:59 06:59 14:59 Intake Total 500 / 500 Balance 500 / 500 Intake: IV 500 / 500 NS Inj 500 ML @ Wide Open IV. 500 / 500 SIG BOLUS GASTON Rx#:[id number] Other: Weight 238 lb 1.588 oz Weight On Admission 238 lb 1.588 oz - Imaging and Cardiology Imaging: Impressions Chest X-Ray 01/02/18 00:35 CONCLUSION: Cardiomegaly. No acute pulmonary disease. Chest CTA 01/02/18 02:33 CONCLUSION: No evidence of pulmonary embolism. Assessment and Plan - Plan 47-year-old female with a past medical history of CAD, HTN who presented for chest pain Atypical chest pain with history of CAD: Currently no objective evidence of ACS. We will plan for Lexiscan for further ischemic evaluation, if positive will transfer to [facility] main for [facility], if negative okay for follow-up with special education classroom aide as outpatient. Continue aspirin, Plavix, amlodipine and consider addition of beta-chaparrita for anginal control depending on stress test results. Discussed Condition With: Patient, RN, Dr. Garces
[2018-01-02 08:05] LABS: CKMB Percent 1.5 % (0.0-4.0)
[2018-01-02 08:30] LABS: Amphetamine Screen,Urine Neg (Neg); Barbiturate Screen,Urine Neg (Neg)
[2018-01-02 08:31] LABS: Cannabinoid Screen,Urine Neg (Neg); Cocaine Screen,Urine Neg (Neg)
[2018-01-02 08:35] LABS: Opiate Screen,Urine Pos (Neg)
--- NOTE | 2018-01-02 08:55 | P.HP ---
History of Present Illness Primary Care Physician: No Primary Care Physician Chief Complaint: Chest pain History of Present Illness: This is a 47-year-old female patient with a known medical history of CAD with multiple MIs in the past and cardiac stent placements who presented to the ED with complaints of chest pain, nausea, shortness of breath and sweating. Patient states that yesterday she was driving she developed a midsternal chest discomfort, characterized as heavy and sharp in nature, was associated with shortness of breath, nausea and diaphoresis. She denies any radiation of the pain, rates the pain a an 8 out of 10 at its worst on pain scale, states that the pain lasted a few hours and was relieved with morphine IV in the ED. She denies any known worsening factors, states that the nitroglycerin did not help with the pain. She does admit to following with the sole ruffer previously in [place] although has not seen in sole ruffer in quite some time. [facility] has not been [facility] him [facility]. Patient admits to undergoing a stress test and cardiac cath roughly a year and a half ago which at that time states she did have a cardiac stent placed. He does have a history of HI and believes to have a total of 6 cardiac stents in the past. Patient does admit to a history of tobacco abuse, states that she quit smoking after her first heart attack. It should be noted that patient has a maternal medical history significant for CAD and CABG in her 40s. At the time of assessment patient states that the pain is still present although has been relieved with morphine IV. Pain is worse when she breathes deep. She was given some NSAIDs in the ED which did help her pain mildly yesterday. Is on heparin drip and cardiology is following patient. Plan is for patient to undergo cardiac nuclear stress test. - Diagnosis (1) Chest pain Review of Systems All other systems reviewed negative except as stated in [facility] - History History Provided By: Patient - Medical History Medical History: Medical History (Last Reviewed 01/02/18 @ 13:51 by Dimple Heaton) Brain tumor History of hysterectomy Myocardial infarction - Surgical History Surgical History: Surgical History (Last Reviewed 01/02/18 @ 13:51 by Dimple Heaton) History of heart artery stent Hx of cholecystectomy - Family History Family History: Family History (Last Updated 01/02/18 @ 13:51 by Dimple Heaton) Mother Cardiovascular disease Mother Hx of CABG - Tobacco History Second Hand Smoke Exposure: Yes Tobacco Use In Past 30 Days: Yes Smoking Status: Former smoker Tobacco Type: Cigarettes - Alcohol History How Often Do You Have a Drink Containing Alcohol: 2 to 4 times a month - Substance Use History Substance History: No History of Abuse - Travel History Recent Travel Out of the Country Within the Last 8 Weeks: No - Immunization History Tetanus Immunization: Never Vaccinated Hx Influenza Vaccine This Season: No Medications and Allergies Active Medications: Active Medications Amlodipine Besylate (Norvasc) 10 mg PO DAILY [facility] Aspirin (Ecotrin) 81 mg PO DAILY [facility] Clopidogrel Bisulfate (Plavix) 75 mg PO DAILY [facility] Sodium Chloride (Ns Inj) 1,000 mls @ 100 mls/hr IV.CONT .Q10H [facility] Last Infusion: 01/02/18 06:26 Dose: 100 mls/hr Sodium Chloride (Ns Inj) 500 mls @ 0 mls/hr IV.SIG BOLUS [place] Last Infusion: 01/02/18 05:20 Dose: Infused Heparin Sodium/Dextrose (Heparin/D5w 25,000 U/250 Ml) 25,000 unit in 250 mls @ 0 mls/hr IV.CONT TITRATE PRN; Protocol PRN Reason: Per Protocol Last Titration: 01/02/18 06:26 Dose: 1,000 units/hr, 10 mls/hr Lisinopril (Prinivil) 40 mg PO DAILY [facility] Nitroglycerin (Nitro-Bid 2% Oint) 1 inch TOPICAL Q6HR [facility] Ondansetron HCl (Zofran Inj) 4 mg IV.PUSH Q6H PRN PRN Reason: NAUSEA OR VOMITING Sodium Chloride (Ns Inj) 2 ml IV.FLUSH BID [facility] Sodium Chloride (Ns Inj) 2 ml IV.FLUSH UNSCH PRN PRN Reason: FLUSH AFTER USING IV ACCESS Allergies Allergy/AdvReac Type Severity Reaction Status Date / Time codeine Allergy Severe RASH, N/V Verified 08/11/17 17:23 phenobarbital Allergy Severe Verified 08/11/17 17:23 Home Medications Medication Instructions Recorded Confirmed Type amlodipine [Norvasc] 10 mg PO DAILY 01/02/18 01/02/18 History aspirin 325 mg PO QPM 01/02/18 01/02/18 History clopidogrel [Plavix] 75 mg PO DAILY 01/02/18 01/02/18 History lisinopril 40 mg PO DAILY 01/02/18 01/02/18 History Exam Vital signs: Vital Signs 01/02/18 00:20 01/02/18 01:01 01/02/18 01:04 Temperature 98.0 F Pulse Rate 65 68 75 Respiratory Rate 20 20 18 Blood Pressure 220/108 H 212/105 H 195/107 H Blood Pressure [Left Arm] 195/107 H Blood Pressure [Right Arm] 212/105 H Pulse Oximetry 96 96 97 01/02/18 01:11 01/02/18 01:40 01/02/18 01:59 Temperature Pulse Rate 66 64 Respiratory Rate 20 Blood Pressure 166/91 H Blood Pressure [Left Arm] Blood Pressure [Right Arm] Pulse Oximetry 96 96 01/02/18 02:05 01/02/18 03:01 01/02/18 03:41 Temperature Pulse Rate 59 L 62 Respiratory Rate 20 20 Blood Pressure 183/92 H 178/88 H Blood Pressure [Left Arm] Blood Pressure [Right Arm] Pulse Oximetry 98 98 98 01/02/18 04:00 01/02/18 05:04 01/02/18 06:02 Temperature Pulse Rate 75 61 73 Respiratory Rate 18 20 20 Blood Pressure 132/67 154/81 H 144/88 H Blood Pressure [Left Arm] Blood Pressure [Right Arm] Pulse Oximetry 95 95 96 01/02/18 06:54 Temperature Pulse Rate 77 Respiratory Rate Blood Pressure Blood Pressure [Left Arm] Blood Pressure [Right Arm] Pulse Oximetry Intake & Output 01/01/18 01/02/18 01/02/18 18:59 06:59 18:59 Intake Total 500 / 500 Balance 500 / 500 Weight 108 kg Intake: IV 500 / 500 NS Inj 500 ML @ Wide Open IV. 500 / 500 SIG BOLUS [facility] Rx#:[id number] Other: Weight On Admission 108 kg Narrative: GENERAL: Well-developed, well-nourished patient in NAD. SKIN: Warm and dry. No rash. HEAD: Normocephalic. Atraumatic. EYES: Pupils equal and round. No scleral icterus. No injection or drainage. ENT: No nasal bleeding or discharge. Mucous membranes pink and moist. NECK: Supple. Trachea midline. CARDIOVASCULAR: Regular rate and rhythm. S1, S2 noted. No murmur appreciated. Mild chest discomfort with palpation. RESPIRATORY: No accessory muscle use. Clear to auscultation. Breath sounds equal bilaterally. GASTROINTESTINAL: Abdomen soft, non-tender, nondistended. Normoactive bowel sounds x4. MUSCULOSKELETAL: No obvious deformities. Extremities without clubbing, cyanosis , or edema. NEUROLOGICAL: Awake and alert. No obvious cranial nerve deficits. Motor grossly within normal limits. 5/5 muscle strength in bilateral upper and lower extremities. Normal speech. PSYCHIATRIC: Appropriate mood and affect; insight and judgment normal. Results - Labs CBC & Chem 7: 01/02/18 06:45 01/02/18 00:45 Labs: Laboratory Results - last 24 hr 01/02/18 01/02/18 01/02/18 00:45 00:45 03:55 CBC w Diff Slide review pending WBC 8.4 RBC 5.11 Hgb 14.8 Hct 43.8 MCV 85.7 MCH 29.0 MCHC 33.8 RDW 13.2 Plt Count 198 MPV 8.6 WBC Differential Manual diff final Seg Neuts % (Manual) 54 Band Neuts % (Manual) 1 Lymphocytes % (Manual) 36 Monocytes % (Manual) 5 Eosinophils % (Manual) 3 Basophils % (Manual) 1 Abs Neuts (Manual) 4.6 Differential Comment . Platelet Estimate Normal Platelet Morphology Normal RBC Morphology Normal PT INR APTT Sodium 142 Potassium 3.3 L Chloride 106 Carbon Dioxide 27.2 Anion Gap 9 BUN 15 Creatinine 1.00 Estimated GFR 59 L Random Glucose 127 H Calcium 8.4 L Total Bilirubin 0.5 AST 49 H ALT 129 H Alkaline Phosphatase 128 H Total Creatine Kinase 290 H CK-MB (CK-2) 4.4 H CK-MB (CK-2) % 1.5 Troponin I Less than 0.02 L Less than 0.02 L Total Protein 7.5 Albumin 4.0 Urine Color Urine Clarity Urine pH Ur Specific [place] Urine Protein Urine Glucose (UA) Urine Ketones Urine Occult Blood Urine Nitrate Urine Bilirubin Urine Urobilinogen Ur Leukocyte Esterase Urine RBC Urine WBC Ur Squamous Epith Cells Amorphous Sediment Micro UA Comment Ur Microscopic Review Urine Culture Comments Urine Opiates Screen Ur Barbiturates Screen Ur Amphetamines Screen U Benzodiazepines Scrn Urine Cocaine Screen U Cannabinoids Screen 01/02/18 01/02/18 01/02/18 05:00 06:25 06:25 CBC w Diff WBC RBC Hgb Hct MCV MCH MCHC RDW Plt Count MPV WBC Differential Seg Neuts % (Manual) Band Neuts % (Manual) Lymphocytes % (Manual) Monocytes % (Manual) Eosinophils % (Manual) Basophils % (Manual) Abs Neuts (Manual) Differential Comment Platelet Estimate Platelet Morphology RBC Morphology PT 10.5 INR 1.0 APTT 22.9 L Sodium Potassium Chloride Carbon Dioxide Anion Gap BUN Creatinine Estimated GFR Random Glucose Calcium Total Bilirubin AST ALT Alkaline Phosphatase Total Creatine Kinase CK-MB (CK-2) CK-MB (CK-2) % Troponin I Total Protein Albumin Urine Color Yellow Urine Clarity Cloudy H Urine pH 6.0 Ur Specific [place] 1.020 Urine Protein Negative Urine Glucose (UA) Negative Urine Ketones Negative Urine Occult Blood Trace Urine Nitrate Negative Urine Bilirubin Negative Urine Urobilinogen 0.2 Ur Leukocyte Esterase Negative Urine RBC 0-3 Urine WBC 0-5 Ur Squamous Epith Cells 0-5 Amorphous Sediment Moderate H Micro UA Comment Culture not ind Ur Microscopic Review Microscopic reviewed Urine Culture Comments Culture not ind Urine Opiates Screen Pos H Ur Barbiturates Screen Neg Ur Amphetamines Screen Neg U Benzodiazepines Scrn Neg Urine Cocaine Screen Neg U Cannabinoids Screen Neg 01/02/18 01/02/18 06:45 06:45 CBC w Diff WBC 6.5 RBC 4.76 Hgb 13.5 Hct 40.2 MCV 84.4 MCH 28.4 MCHC 33.6 RDW 13.9 Plt Count 204 MPV 8.7 WBC Differential Seg Neuts % (Manual) Band Neuts % (Manual) Lymphocytes % (Manual) Monocytes % (Manual) Eosinophils % (Manual) Basophils % (Manual) Abs Neuts (Manual) Differential Comment Platelet Estimate Platelet Morphology RBC Morphology PT INR APTT Sodium Potassium Chloride Carbon Dioxide Anion Gap BUN Creatinine Estimated GFR Random Glucose Calcium Total Bilirubin AST ALT Alkaline Phosphatase Total Creatine Kinase 261 H CK-MB (CK-2) 4.0 H CK-MB (CK-2) % 1.5 Troponin I Less than 0.02 L Total Protein Albumin Urine Color Urine Clarity Urine pH Ur Specific [place] Urine Protein Urine Glucose (UA) Urine Ketones Urine Occult Blood Urine Nitrate Urine Bilirubin Urine Urobilinogen Ur Leukocyte Esterase Urine RBC Urine WBC Ur Squamous Epith Cells Amorphous Sediment Micro UA Comment Ur Microscopic Review Urine Culture Comments Urine Opiates Screen Ur Barbiturates Screen Ur Amphetamines Screen U Benzodiazepines Scrn Urine Cocaine Screen U Cannabinoids Screen - Imaging Impressions Chest X-Ray 01/02/18 00:35 CONCLUSION: Cardiomegaly. No acute pulmonary disease. Chest CTA 01/02/18 02:33 CONCLUSION: No evidence of pulmonary embolism. Caprini VTE Risk Assessment Caprini VTE Risk Assessment: No/Low Risk (score <= 1) Caprini Risk Assessment Model: Point Value = 1 Point Value = 2 Point Value = 3 Point Value = 5 Age 41-60 Minor surgery BMI > 25 kg/m2 Swollen legs Varicose veins or History of unexplained or recurrent spontaneous Oral contraceptives or hormone replacement Sepsis (< 1 month) Serious lung disease, including pneumonia (< 1 month) Abnormal pulmonary function Acute myocardial infarction Congestive heart failure (< 1 month) History of inflammatory bowel disease Medical patient at bed rest Age 61-74 Arthroscopic surgery Major open surgery (> 45 min) Laparoscopic surgery (> 45 min) Malignancy Confined to bed (> 72 hours) Immobilizing plaster cast Central venous access Age >= 75 History of VTE Family history of VTE Factor V Leiden Prothrombin [id number] Lupus anticoagulant Anticardiolipin antibodies Elevated serum homocysteine Heparin-induced thrombocytopenia Other congenital or acquired thrombophilia Stroke (< 1 month) Elective arthroplasty Hip, pelvis, or leg fracture Acute spinal cord injury (< 1 month) Prophylaxis Regimen: Total Risk Factor Score Risk Level Prophylaxis Regimen 0-1 Low Early ambulation 2 Moderate Order ONE of the following: *Sequential Compression Device (SCD) *Heparin 5000 units SQ BID 3-4 Higher Order ONE of the following medications: *Heparin 5000 units SQ TID *Enoxaparin/Lovenox 40 mg SQ daily (WT < 150 kg, CrCl > 30 mL/min) *Enoxaparin/Lovenox 30 mg SQ daily (WT < 150 kg, CrCl > 10-29 mL/min) *Enoxaparin/Lovenox 30 mg SQ BID (WT < 150 kg, CrCl > 30 mL/min) AND/OR *Sequential Compression Device (SCD) 5 or more Highest Order ONE of the following medications: *Heparin 5000 units SQ TID (Preferred with Epidurals) *Enoxaparin/Lovenox 40 mg SQ daily (WT < 150 kg, CrCl > 30 mL/min) *Enoxaparin/Lovenox 30 mg SQ daily (WT < 150 kg, CrCl > 10-29 mL/min) *Enoxaparin/Lovenox 30 mg SQ BID (WT < 150 kg, CrCl > 30 mL/min) AND *Sequential Compression Device (SCD) Assessment and Plan - Assessment (1) Chest pain Code(s): R07.9 - Chest pain, unspecified Status: Acute - Plan This is a 47-year-old female patient with: Chest pain History of HI x3 with cardiac stent placement x6 History of hypertension -Patient presented with chest discomfort times 3 hours prior to arrival. With associated nausea, shortness of breath and diaphoresis. -Patient was started on a heparin drip and nitroglycerin drip in ED. -Cardiology has been consulted and seen patient. Plan for cardiac Lexiscan to further rule out any ischemia. Serial EKGs and serial troponins have been ordered for ruling out ACS purposes. Serial troponins have been flat. EKG reviewed showing no ST changes to indicate any ischemia, controlled heart rate noted. -Patient continue on cardiac telemetry, no arrhythmias noted overnight. -Patient's chest pain has resolved with morphine IV. Patient was also given NSAID in ED with some resolution of pain. -Patient was found to be very hypertensive upon presentation. Was placed on nitroglycerin drip which has been weaned off. Blood pressure trends have been reviewed and controlled. We will continue home medications. -Patient was also given IV Ativan which helped to relieve the anxiety in the ED. -A CTA was ordered and reviewed negative for PE. -CBC reviewed and essentially normal and BMP reviewed and essentially unremarkable. -Patient underwent cardiac Lexiscan, report reviewed showing fixed defects consistent with prior HI in the past. No acute ischemia or reversibility noted. EF is stable. Cardiology made aware and no further workup per their recommendations. -Will be discharged home to follow-up with PCP and prior sole ruffer. -Patient's symptoms have improved. Advised supportive care NSAIDs and heating pad/cold therapy. -Advised to return to the ED if symptoms worsen or persist. -Patient stable at this time and agreeable to plan. -Discharge home. -Follow-up PCP -Heart healthy diet -Activity as tolerated -Prescriptions as written (1) Chest pain Qualifiers: Chest pain type: precordial pain Qualified Code(s): R07.2 - Precordial pain
[2018-01-02] MEDS ORDERED: Lisinopril 20 MG Tablet PO SCH (09:00)
[2018-01-02] MEDS ORDERED: amLODIPine 10 MG Tablet PO SCH (09:00)
[2018-01-02] MEDS ORDERED: Morphine Sulfate Inj 2 MG/ML Vial IV.PUSH PRN (09:30)
[2018-01-02] MEDS ORDERED: hydrALAZINE HCl Inj 20 MG/ML Vial IV.PUSH ONE (11:00)
[2018-01-02] MEDS ORDERED: Regadenoson Inj 0.4 MG/5 ML Syringe IV.PUSH ONE (11:34)
--- NOTE | 2018-01-02 11:57 | ECG ---
Date Performed: 01/02/2018 Time Performed: 00:26:48 PTAGE: 47 years EKG: Sinus rhythm LEFT VENTRICULAR HYPERTROPHY AND ST-T CHANGE ABNORMAL ECG PREVIOUS TRACING : 09/01/2017 14.04 Since the previous tracing, no significant change noted DOCTOR: Dewayne Kowalski Interpretating Date/Time 01/02/2018 11:56:34
--- NOTE | 2018-01-02 11:57 | ECG ---
Date Performed: 01/02/2018 Time Performed: 04:12:40 PTAGE: 47 years EKG: Sinus rhythm MODERATE T-WAVE ABNORMALITY, CONSIDER LATERAL ISCHEMIA MODERATE T-WAVE ABNORMALITY, CONSIDER INFERIO R ISCHEMIA ABNORMAL ECG PREVIOUS TRACING : 01/02/2018 00.26 DOCTOR: Dewayne Kowalski Interpretating Date/Time 01/02/2018 11:56:10
--- NOTE | 2018-01-02 12:47 | NM ---
EXAM DATE: 01/02/2018 9:43 AM EDT AGE/SEX: 47 years / Female INDICATIONS:Angina. Myocardial infarction Substernal chest pain. CLINICAL DATA: This is the patient's initial encounter. Patient reports that signs and symptoms have been present for 1 day and indicates a pain score of 3/10. MEDICAL/SURGICAL HISTORY: Hypertension. Brain tumor. Hysterectomy. Coronary artery stent. Ch olecystectomy. Brain tumor removal. COMPARISON: No prior exams available for comparison. DOSE: 10.1 mCi Tc 99m Myoview at rest 30.0 mCi [id number] at stress 0.4 mg Lexiscan STRESS SYMPTOMS: Short of breath with chest pain. EJECTION FRACTION: 41 % TECHNIQUE: The patient underwent pharmacologic stress with infusion of prescribed dose. Continuous ECG tracing was monitored during stress. Gated SPECT imaging was performed after stress and conventi onal SPECT imaging was performed at rest. The examination was performed on a SPECT/CT scanner, both attenuation and non-corrected datasets were reviewed. FINDINGS: The gated cine loop images demonstrate mild global hypokinesis. The left ventricular ejection fractio n is calculated at 41%. The cardiac SPECT stress and rest images demonstrate fixed defects involving anterior, apical and inferolateral hong suggesting infarcts in the LAD, LCx and possibly RCA distrib utions. No reversible defects are noted to suggest ischemia. RISK CATEGORY: Intermediate (1-3 % Annual Mortality Rate) CONCLUSION: 1. Fixed defect involving the anterior, apical and inferolateral hong suggesting infarcts in the LA D, LCx and possibly RCA distributions. 2. No reversible defects to suggest ischemia. 3. Mild global hypokinesis with left ventricular ejection fraction equaling 41%. Electronically signed by: Rudy Ramos MD 01/02/2018 12:45 PM EDT
[2018-01-02] MEDS ORDERED: hydroCHLOROthiazide 25 MG Tablet PO ONE (14:30)
[2018-01-02 16:51] VITALS: BP 114/67; PULSE 60; RESP 14; TEMP 98.5; O2SAT 97
--- NOTE | 2018-01-03 13:32 | ECG ---
Date Performed: 01/02/2018 Time Performed: 07:01:00 PTAGE: 47 years EKG: Sinus rhythm MODERATE T-WAVE ABNORMALITY, CONSIDER INFERIOR ISCHEMIA ABNORMAL ECG PREVIOUS TRACING : 01/02/2018 04.12 DOCTOR: oLrena Vincent Interpretating Date/Time 01/03/2018 13:19:48
== END 2018-01-02 15:50 | disposition home or self-care (01) ==
LOC: PHED 00:18 → INTOOBSV 04:51 → PHEDA 04:51 → PHICU 06:19
PROVIDERS: ADMIT Internal Medicine; ATTEND Internal Medicine

== ENCOUNTER 2018-01-06 01:12 | Observation (INO) ==
--- NOTE | 2018-01-06 02:54 | ED ---
HPI General Chief Complaint: Chest Pain Stated Complaint: Chest Pain Time Seen by Provider: 01/06/18 02:20 Source: patient Limitations: no limitations History of Present Illness HPI narrative: The patient is a 47 year old female who presents to the [facility] emergency department with a history of chest pain that awoke her from sound sleep just after 12 midnight. The pain is in the center of her chest and just to the left. It is "sharp but heavy" in character. She has had n/v x2. She has had diaphoresis. She reports having shortness of breath, no radiation of pain. It is constant but waxes and wanes in severity. It was unrelieved with 3 ntg. It is currently 8/10 in severity. The patient reports a history of recently being admitted to the [facility] and having a stress test done that was reportedly negative. The patient reports having a history of coronary artery disease with multiple stents being placed. Her last stent was placed approximately a year and a half ago. She reports that in total she has had 6 stents placed. She reports that she did take an adult aspirin at the onset of symptoms. On review of systems otherwise, the patient denies having any known recent fevers, cough, congestion, neck pain, abdominal pain, diarrhea , urinary symptoms, or neurologic symptoms. Related Data Home Medications Medication Instructions Recorded Confirmed amlodipine [Norvasc] 10 mg PO DAILY 01/02/18 01/06/18 aspirin 325 mg PO QPM 01/02/18 01/06/18 clopidogrel [Plavix] 75 mg PO DAILY 01/02/18 01/06/18 lisinopril 40 mg PO DAILY 01/02/18 01/06/18 Previous Rx's Medication Instructions Recorded hydrochlorothiazide 25 mg PO DAILY 30 Days #60 cap 01/02/18 Allergies Allergy/AdvReac Type Severity Reaction Status Date / Time codeine Allergy Severe RASH, N/V Verified 08/11/17 17:23 phenobarbital Allergy Severe Verified 08/11/17 17:23 Review of Systems ROS: all other systems reviewed are negative [facility] Medical History Medical History Brain tumor (Acute) History of hysterectomy (Acute) Hyperlipidemia (Acute) Hypertension (Acute) Myocardial infarction (Acute) Surgical History Surgical History History of heart artery stent (Acute) Hx of cholecystectomy (Acute) Family History Family History Mother Cardiovascular disease Mother Hx of CABG Social History Social History Substance History: No History of Abuse Second Hand Smoke Exposure: No Smoking Status: Former smoker Tobacco Type: Cigarettes Smoking End Date: quit 10 years ago. How Often Do You Have a Drink Containing Alcohol: Monthly or less Recent Travel in [facility] within the Last 8 Weeks: No Recent Out of Country Travel within the Last 8 Weeks: No Immunization History Tetanus Immunization: <5 Years Exam Const General: cooperative, no acute distress and well developed Nutritional Appearance: well nourished Orientation: alert, awake and oriented x3 HENMT Head: normocephalic and atraumatic Nose: no nasal discharge and no epistaxis Mouth: moist mucous membranes Throat: posterior oropharynx normal and uvula midline Eyes Sclera: normal sclerae Pupils: PERRL Neck Neck: no meningeal signs, trachea midline and no JVD Resp Effort & Inspection: no use of accessory muscles Auscultation: clear to auscultation bilaterally Cardio Rate: regular rate Rhythm: regular rhythm Heart Sounds: no murmurs GI Inspection: non-distended Palpation: soft, no hepatosplenomegaly, no guarding, not rigid and nontender Auscultation: normal bowel sounds Back/Spine/Pelvis Back: no CVA tenderness Skin General: dry skin (warm) Neuro General: alert, awake, oriented x3 and other (Grossly nonfocal.) Speech: speech normal Motor: no movement abnormalities noted Extrem General: normal to inspection (2+ pulses in all 4 extremities.), no calf tenderness, no clubbing, no cyanosis and no edema Psych Mood: congruent mood Affect: normal affect Judgment: judgment good Course Initial Documented Vital Signs Temperature 97.6 F 01/06/18 01:15 Pulse Rate 70 01/06/18 01:15 Respiratory Rate 18 01/06/18 01:15 Blood Pressure 225/118 H 01/06/18 01:15 Pulse Oximetry 99 01/06/18 01:15 Last Documented Vital Signs Temperature 97.6 F 01/06/18 01:15 Pulse Rate 62 01/06/18 04:15 Respiratory Rate 15 01/06/18 04:15 Blood Pressure 185/94 H 01/06/18 04:15 Pulse Oximetry 96 01/06/18 04:15 Medical Decision Making MDM Narrative Medical decision making narrative: During the course of the patient's emergency department visit, the patient's history, examination, and differential diagnosis were reviewed with the patient. The patient was placed on a monitor worker with oximetry and frequent blood pressure monitoring. The patient had IV access obtained and blood work sent for analysis. A diagnostic evaluation was started regarding the patient's chest pain. The patient reports that she did take an adult dose of aspirin earlier today. Electronic medical record was reviewed. The patient was recently admitted to [facility] for a chest pain workup. The patient at that time underwent stress testing on January 02. The patient's stress test revealed an ejection fraction of 41% with fixed defects noted. Cardiology was consulted and recommended continuation of aspirin, Plavix , lisinopril, and amlodipine. The patient additionally had a CTA that was negative for pulmonary embolism at that time. The patient was initially provided nitroglycerin sublingual x1, nitroglycerin 1 inch to the chest wall, morphine 4 mg IV, Zofran 4 mg IV. The patient's diagnostic studies are remarkable for a CBC that is unremarkable, PT PTT essentially within normal limits. CPK is 137, CK-MB 1.4. A chest x-ray showed no acute abnormality. The patient's chemistries remarkable for glucose of 157, AST 58, ALT 139, alk phos 122, troponin I less than 0.02, lipase 139. Magnesium at 2.4. The patient reports that her pain is similar to when she has had myocardial infarctions in the past and stents placed. Given this, the patient will again be admitted to the chest pain center to be ruled out. The patient's results were discussed with the patient, including the plan of care. I explained that further testing and/ or monitoring is indicated based on the patient's history, examination, and/ or laboratory findings. Therefore, I recommended admission for additional evaluation. The patient expressed understanding and was agreeable with this plan. The patient was admitted to the hospital in stable condition and sent to a bed under the care of the [facility]. Medical Screen Exam Complete: Yes Emergency Medical Condition: Yes Medical Records Medical records reviewed: Yes I reviewed the patient's medical records. Lab Data Result diagrams: 01/06/18 02:45 01/06/18 03:49 POC Results POC Urine Results Negative Lab Results 01/06/18 01/06/18 01/06/18 Range/Units 02:45 02:45 02:45 WBC 6.7 (4.0-11.0) th/mm3 RBC 5.30 (4.00-5.30) mil/mm3 Hgb 15.3 (11.6-15.3) gm/dL Hct 45.5 (35.0-46.0) % MCV 85.9 (80.0-100.0) fL MCH 28.8 (27.0-34.0) pg MCHC 33.5 (32.0-36.0) % RDW 14.3 (11.6-17.2) % Plt Count 208 (150-450) th/mm3 MPV 8.2 (7.0-11.0) fL Neut % (Auto) 66.4 (16.0-70.0) % Lymph % (Auto) 21.0 (9.0-44.0) % Dale % (Auto) 8.6 H (0.0-8.0) % Eos % (Auto) 3.3 (0.0-4.0) % Baso % (Auto) 0.7 (0.0-2.0) % Neut # (Auto) 4.5 (1.8-7.7) th/mm3 Lymph # (Auto) 1.4 (1.0-4.8) th/mm3 Dale # (Auto) 0.6 (0.0-0.9) th/mm3 Eos # (Auto) 0.2 (0.0-0.4) th/mm3 Baso # (Auto) 0.0 (0.0-0.2) th/mm3 WBC Differential . Differential Comment Auto diff final PT 10.0 (9.8-11.6) sec INR 1.0 Ratio APTT 22.4 L (24.3-30.1) sec Magnesium (1.5-2.5) mg/dL Total Creatine Kinase (26-192) U/L CK-MB (CK-2) (0.5-3.6) ng/mL B-Natriuretic Peptide 35 (0-100) pg/mL 01/06/18 Range/Units 02:45 WBC (4.0-11.0) th/mm3 RBC (4.00-5.30) mil/mm3 Hgb (11.6-15.3) gm/dL Hct (35.0-46.0) % MCV (80.0-100.0) fL MCH (27.0-34.0) pg MCHC (32.0-36.0) % RDW (11.6-17.2) % Plt Count (150-450) th/mm3 MPV (7.0-11.0) fL Neut % (Auto) (16.0-70.0) % Lymph % (Auto) (9.0-44.0) % Dale % (Auto) (0.0-8.0) % Eos % (Auto) (0.0-4.0) % Baso % (Auto) (0.0-2.0) % Neut # (Auto) (1.8-7.7) th/mm3 Lymph # (Auto) (1.0-4.8) th/mm3 Dale # (Auto) (0.0-0.9) th/mm3 Eos # (Auto) (0.0-0.4) th/mm3 Baso # (Auto) (0.0-0.2) th/mm3 WBC Differential Differential Comment PT (9.8-11.6) sec INR Ratio APTT (24.3-30.1) sec Magnesium 2.4 (1.5-2.5) mg/dL Total Creatine Kinase 137 (26-192) U/L CK-MB (CK-2) 1.4 (0.5-3.6) ng/mL B-Natriuretic Peptide (0-100) pg/mL Imaging Data Radiologist's impression: Chest X-Ray 01/06/18 02:36 CONCLUSION: Stable chest x-ray. No acute cardiopulmonary abnormality is identified. ECG Data Attestation: I personally reviewed and interpreted this ECG as follows: Interpretation: The patient had a EKG done on arrival that shows a sinus rhythm heart rate is 66, QRS duration is 101 ms, QTC 429 ms. The patient is noted to have nonspecific ST-T wave abnormalities, T waves are inverted in lead II, 3, aVF, V5, V6. No acute ST segment elevation. Discharge Plan Discharge Disposition Patient Disposition: 30 Still Patient Discharge Details Diagnosis: Chest pain, rule out acute myocardial infarction Physicians Team ED Provider: Natalya Rojas Primary Care Provider: Primary Care Alexandria Messer Attending Provider: Dewayne Kowalski Discharge Interventions Interventions: Vital Signs Last Done: 01/06/18 02:26 Status ED Status: Admitted Observation Patient
[2018-01-06] MEDS ORDERED: Morphine Inj 4 MG/ML Vial IV.PUSH ONE (02:55)
[2018-01-06 03:32] LABS: Baso % (Auto) 0.7 % (0.0-2.0); Eos # (Auto) 0.2 th/mm3 (0.0-0.4); Eos % (Auto) 3.3 % (0.0-4.0); Hematocrit 45.5 % (35.0-46.0); Hemoglobin 15.3 gm/dL (11.6-15.3); Lymph # (Auto) 1.4 th/mm3 (1.0-4.8); Mean Corpuscular HGB Conc 33.5 % (32.0-36.0); Mean Corpuscular Hemoglobin 28.8 pg (27.0-34.0); Mean Corpuscular Volume 85.9 fL (80.0-100.0); Mean Platelet Volume 8.2 fL (7.0-11.0); Mono # (Auto) 0.6 th/mm3 (0.0-0.9); Mono % (Auto) 8.6 % (0.0-8.0); Neut # (Auto) 4.5 th/mm3 (1.8-7.7); Neut % (Auto) 66.4 % (16.0-70.0); Platelet Count 208 th/mm3 (150-450); Red Cell Distribution Width 14.3 % (11.6-17.2); White Blood Count 6.7 th/mm3 (4.0-11.0)
[2018-01-06 03:42] LABS: Activated Partial Thrombo Time 22.4 sec (24.3-30.1)
--- NOTE | 2018-01-06 03:44 | XR ---
EXAM DATE: 01/06/2018 2:36 AM EDT AGE/SEX: 47 years / Female INDICATIONS: Chest pain worsening over the past week. CLINICAL DATA: This is the patient's initial encounter. Patient reports that signs and symptoms have been present for 1 week and indicates a pain score of 7/10. MEDICAL/SURGICAL HISTORY: . Hypertension. Renal calculi. Gastroesophageal reflux disease. DVT. . . Cholecystectomy. Hysterectomy. IVC Filter placement. Stent COMPARISON: [facility], CHEST 1V SINGLE AP, 01/02/2018. . FINDINGS: Portable AP view of the chest demonstrates a normal-sized cardiac silhouette. No effusion, consolidat ion, or pneumothorax is identified. The bones and soft tissues demonstrate no acute finding. CONCLUSION: Stable chest x-ray. No acute cardiopulmonary abnormality is identified. Electronically signed by: Julian Flood MD 01/06/2018 3:43 AM EDT
[2018-01-06 03:53] LABS: Magnesium 2.4 mg/dL (1.5-2.5)
[2018-01-06 03:54] LABS: Creatine Kinase 137 U/L (26-192)
[2018-01-06 04:09] LABS: Creatine Kinase MB 1.4 ng/mL (0.5-3.6)
[2018-01-06 05:22] LABS: Alanine Aminotransferase 139 U/L (10-53); Albumin 3.6 g/dL (3.4-5.0); Anion Gap 12 meq/L (5-15); Aspartate Aminotransferase 58 U/L (15-37); Blood Urea Nitrogen 12 mg/dL (7-18); Calcium 8.2 mg/dL (8.5-10.1); Carbon Dioxide 25.7 meq/L (21.0-32.0); Chloride 104 meq/L (98-107); Glomerular Filtration Rate 61 mL/min (>89); Glucose,Random 157 mg/dL (74-106); Lipase 139 U/L (73-393); Sodium 142 meq/L (136-145)
[2018-01-06 05:26] LABS: Alkaline Phosphatase 122 U/L (45-117); Potassium 3.5 meq/L (3.5-5.1); Total Protein 7.5 g/dL (6.4-8.2)
[2018-01-06] MEDS ORDERED: Acetaminophen 500 MG Tablet PO PRN (05:30)
[2018-01-06 08:01] LABS: Creatine Kinase 106 U/L (26-192)
[2018-01-06] MEDS ORDERED: Ketorolac Inj 30 MG/ML (IVP) Vial IV.PUSH ONE (08:45)
[2018-01-06] MEDS: Lisinopril 20 MG Tablet PO SCH (08:59)
[2018-01-06] MEDS: Metoprolol Tartrate 25 MG Tablet PO SCH ×2 (08:59→23:45)
[2018-01-06] MEDS: amLODIPine 10 MG Tablet PO SCH (09:00)
[2018-01-06] MEDS ORDERED: Lisinopril 10 MG Tablet PO SCH (09:00)
[2018-01-06] MEDS: hydroCHLOROthiazide 25 MG Tablet PO SCH (09:00)
[2018-01-06] MEDS: Famotidine 20 MG Tablet PO SCH ×2 (09:00→21:39)
--- NOTE | 2018-01-06 09:03 | P.HPCA ---
History of Present Illness Primary Care Physician: [facility] Chief Complaint: Chest pain History of Present Illness: 47-year-old female with history of coronary artery disease including x6 cardiac stents and hypertension presents emergency room for further evaluation of chest pain. Onset midnight, was awakened from sleep comfort. Location substernal and slightly to left of sternum. Characterized sharp and heavy. No radiation. Associated symptoms included nausea, x2 nonbloody emesis, diaphoresis, and slight shortness of breath. Hurts to take a deep breath. Duration constant, waxing and waning in intensity, never completely resolving since midnight. Endorses this is same pain that brought her to ER last week, stating last week discomfort intermittent. Admitted overnight, completed Lexiscan, seen by cardiology, and discharged home on HCTZ. Cardiology note recommended staring a beta chaparrita, however patient reports only given prescription for HCTZ which she has not yet picked up. Chest discomfort continued intermittent since discharge on 01/02/18. Discomfort slightly similar to past cardiac pain, but also states past cardiac pain never resembled each other. No local PCP or business continuity specialist. Reports x6 cardiac stents. Last cardiac catheterization summer in [place] without intervention. No recent illness, fever, cough, or injury. Past cardiac testing 01/02/2018 Lexiscan-fixed defect in anterior, apical, and inferolateral wall. No reversible defects. EF 41%. Summer 2016 Cardiac catheterization ([facility]) no intervention required 2014 Cardiac catheterization (Dr. Interiano-[place], [place])-x1 stent placed 2012-Routine Lexiscan abnormal leading to cardiac catheterization-x3 stents placed 10/11/2010 Cardiac catheterization (Dr. Kuo) Coronary Angiography: The left main coronary artery is free of significant angiographic disease. The left anterior descending coronary artery is a medium to large caliber vessel. There is a visible stent in the second obtuse marginal branch and is completely patent. The right coronary artery is a medium to large caliber vessel and is a dominant artery. There is a sequential 30% proximal lesion. In the mid vessel after acute marginal, there is a long area of luminal irregularities 9up to 10% to 20%). Within this long area of disease, there is a focal 30% stenosis. More distally, there are minor irregularities in the RCA (less than 10%). There is a visible acute marginal branch of the right coronary artery, which has a hazy 90% lesion with delayed filling. However due to small caliber of the vessel, no intervention was attempted. Final diagnoses: 1. Coronary artery disease (as detailed above). There is a high-grade stenosis in the acute marginal branch of the right coronary artery, which has delayed filling. No intervention was attempted on this vessel due to the small caliber of the branch. 2. Normal global left systolic function with an estimated ejection fraction between 60% and 65%. 3. Elevated left ventricular end-diastolic pressure after coronary angiography. 2008 Nstemi- x1 stent placed 2007 Stemi alert x1 stent placed No current business continuity specialist. Has followed in the past Dr. Interiano in [place], [place] and Dr. Orlando in [place]. Social history Known coronary artery disease and hypertension. No known diabetes. Unclear why statin therapy discontinued. Former smoker. Quit 2007 after first OK. No alcohol or recreational drug use. Works for a local restaurant. Remains active although denies daily purposeful exercise. Family history Mother CABG x2 age 39. - Diagnosis (1) Chest pain of uncertain etiology (2) Hypertension (3) CAD (coronary artery disease) Review of Systems All other systems reviewed negative except as stated in HPI [facility] - History History Provided By: Medical Record - Medical History Medical History: Medical History (Last Reviewed 01/06/18 @ 11:40 by JOVANNY Emmanuel) Former smoker Brain tumor History of hysterectomy Hyperlipidemia Hypertension Myocardial infarction - Surgical History Surgical History: Surgical History (Last Updated 01/06/18 @ 11:41 by JOVANNY Emmanuel) History of left knee surgery History of total replacement of right ankle History of heart artery stent Hx of cholecystectomy - Family History Family History: Family History (Last Updated 01/06/18 @ 11:41 by JOVANNY Emmanuel) Mother Cardiovascular disease Hx of CABG - Tobacco History Second Hand Smoke Exposure: No Smoking Status: Former smoker Tobacco Type: Cigarettes Smoking End Date: quit 10 years ago. - Alcohol History How Often Do You Have a Drink Containing Alcohol: Monthly or less - Substance Use History Substance History: No History of Abuse - Travel History Recent Travel in the [place] Within the Last 8 Weeks: No Recent Travel Out of the Country Within the Last 8 Weeks: No - Immunization History Tetanus Immunization: <5 Years Medications and Allergies Active Medications: Active Medications Acetaminophen (Tylenol) 500 mg PO Q4H PRN PRN Reason: HEADACHE Hydrocodone Bitart/Acetaminophen ([place] 7.5/325) 1 tab PO Q4H PRN PRN Reason: PAIN SCALE 1 TO 7 Amlodipine Besylate (Norvasc) 10 mg PO DAILY [facility] Last Admin: 01/06/18 09:00 Dose: 10 mg Clopidogrel Bisulfate (Plavix) 75 mg PO DAILY [facility] Last Admin: 01/06/18 09:00 Dose: 75 mg Famotidine (Pepcid) 20 mg PO BID [facility] Last Admin: 01/06/18 09:00 Dose: 20 mg Hydrochlorothiazide (Hydrodiuril) 25 mg PO DAILY [facility] Last Admin: 01/06/18 09:00 Dose: 25 mg Lisinopril (Prinivil) 40 mg PO DAILY [facility] Last Admin: 01/06/18 08:59 Dose: 40 mg Metoprolol Tartrate (Lopressor) 25 mg PO BID [facility] Last Admin: 01/06/18 08:59 Dose: 25 mg Ondansetron HCl (Zofran Inj) 4 mg IV.PUSH Q6H PRN PRN Reason: NAUSEA Sodium Chloride (Ns Flush) 2 ml IV.FLUSH UNSCH PRN PRN Reason: FLUSH AFTER USING IV ACCESS Last Admin: 01/06/18 03:32 Dose: 2 ml Sodium Chloride (Ns Flush) 2 ml IV.FLUSH BID [facility] Sodium Chloride (Ns Flush) 2 ml IV.FLUSH PRN PRN PRN Reason: FLUSH AFTER USING IV ACCESS Allergies Allergy/AdvReac Type Severity Reaction Status Date / Time codeine Allergy Severe RASH, N/V Verified 08/11/17 17:23 phenobarbital Allergy Severe Verified 08/11/17 17:23 Home Medications Medication Instructions Recorded Confirmed Type amlodipine [Norvasc] 10 mg PO DAILY 01/02/18 01/06/18 History aspirin 325 mg PO QPM 01/02/18 01/06/18 History clopidogrel [Plavix] 75 mg PO DAILY 01/02/18 01/06/18 History lisinopril 40 mg PO DAILY 01/02/18 01/06/18 History Exam Vital signs: Vital Signs 01/06/18 01:15 01/06/18 02:26 01/06/18 02:30 Temperature 97.6 F Pulse Rate 70 72 Respiratory Rate 18 20 Blood Pressure 225/118 H 206/110 H Pulse Oximetry 99 99 98 01/06/18 03:20 01/06/18 03:30 01/06/18 03:37 Temperature Pulse Rate 75 65 Respiratory Rate 20 18 Blood Pressure 198/97 H 198/100 H Pulse Oximetry 98 98 97 01/06/18 04:15 01/06/18 05:50 01/06/18 06:30 Temperature Pulse Rate 62 72 68 Respiratory Rate 15 16 15 Blood Pressure 185/94 H 183/84 H 161/83 H Pulse Oximetry 96 97 97 01/06/18 07:41 Temperature Pulse Rate 70 Respiratory Rate 17 Blood Pressure 145/78 H Pulse Oximetry 96 Intake & Output 01/05/18 01/06/18 01/06/18 18:59 06:59 18:59 Weight 102.058 kg Narrative: GENERAL: Alert WN, WD, NAD, pleasant, obese female who appears older than stated age HEAD: NC, AT EYES: Sclera clear, conjunctiva without injection, pupils equal and round ENT: Mucous membranes pink and moist NECK: Supple, no masses, trachea midline CV: RRR, without murmur, rub, gallop, no JVD, S1-S2. Chest wall nontender to palpation RESP: Clear lungs throughout bilateral, no crackles, wheeze, rhonchi, symmetrical chest rise, nonlabored, able to speak in full sentences ABD: Soft, NT, ND, no masses, positive bowel tones EXT: Pulses +2x4, no dependent edema MS: Normal tone x4 extremities, nontender, no obvious deformities, full range of motion NEURO: CN II through CN XII grossly intact, motor strength 5/5 PSYCH: A+O x3, pleasant affect, appropriate speech, appropriate mood and affect , insight and judgment SKIN: Normal turgor, normal texture, no lesions, no rashes, brisk cap refill, even hair distribution, multiple tattoos Results 01/06/18 02:45 01/06/18 03:49 Cardiac Enzymes 01/06/18 01/06/18 01/06/18 Range/Units 02:45 02:45 03:49 AST 58 H (15-37) U/L CK-MB (CK-2) 1.4 (0.5-3.6) ng/mL Troponin I Less than 0.02 L (0.02-0.05) ng/mL B-Natriuretic Peptide 35 (0-100) pg/mL 01/06/18 Range/Units 06:50 AST (15-37) U/L CK-MB (CK-2) (0.5-3.6) ng/mL Troponin I Less than 0.02 L (0.02-0.05) ng/mL B-Natriuretic Peptide (0-100) pg/mL Coagulation 01/06/18 01/06/18 Range/Units 02:45 02:45 PT 10.0 (9.8-11.6) sec APTT 22.4 L (24.3-30.1) sec B-Natriuretic Peptide 35 (0-100) pg/mL CBC 01/06/18 Range/Units 02:45 WBC 6.7 (4.0-11.0) th/mm3 RBC 5.30 (4.00-5.30) mil/mm3 Hgb 15.3 (11.6-15.3) gm/dL Hct 45.5 (35.0-46.0) % Plt Count 208 (150-450) th/mm3 Neut # (Auto) 4.5 (1.8-7.7) th/mm3 Lymph # (Auto) 1.4 (1.0-4.8) th/mm3 [place] # (Auto) 0.6 (0.0-0.9) th/mm3 Eos # (Auto) 0.2 (0.0-0.4) th/mm3 Baso # (Auto) 0.0 (0.0-0.2) th/mm3 Comprehensive Metabolic Panel 01/06/18 Range/Units 03:49 Sodium 142 (136-145) meq/L Potassium 3.5 (3.5-5.1) meq/L Chloride 104 (98-107) meq/L Carbon Dioxide 25.7 (21.0-32.0) meq/L BUN 12 (7-18) mg/dL Creatinine 0.97 (0.50-1.00) mg/dL Calcium 8.2 L (8.5-10.1) mg/dL AST 58 H (15-37) U/L ALT 139 H (10-53) U/L Alkaline Phosphatase 122 H (45-117) U/L Total Protein 7.5 (6.4-8.2) g/dL Albumin 3.6 (3.4-5.0) g/dL Intake and Output 01/05/18 01/06/18 01/06/18 22:59 06:59 14:59 Other: Weight 102.058 kg - Imaging and Cardiology Imaging: Impressions Chest X-Ray 01/06/18 02:36 CONCLUSION: Stable chest x-ray. No acute cardiopulmonary abnormality is identified. EKG interpretations - EKG EKG results cardiology: sinus rhythm (Nonspecific T wave inversions, unchanged from previous EKGs last week) Caprini VTE Risk Assessment Caprini VTE Risk Assessment: No/Low Risk (score <= 1) Caprini Risk Assessment Model: Point Value = 1 Point Value = 2 Point Value = 3 Point Value = 5 Age 41-60 Minor surgery BMI > 25 kg/m2 Swollen legs Varicose veins or History of unexplained or recurrent spontaneous Oral contraceptives or hormone replacement Sepsis (< 1 month) Serious lung disease, including pneumonia (< 1 month) Abnormal pulmonary function Acute myocardial infarction Congestive heart failure (< 1 month) History of inflammatory bowel disease Medical patient at bed rest Age 61-74 Arthroscopic surgery Major open surgery (> 45 min) Laparoscopic surgery (> 45 min) Malignancy Confined to bed (> 72 hours) Immobilizing plaster cast Central venous access Age >= 75 History of VTE Family history of VTE Factor V Leiden Prothrombin [id number] Lupus anticoagulant Anticardiolipin antibodies Elevated serum homocysteine Heparin-induced thrombocytopenia Other congenital or acquired thrombophilia Stroke (< 1 month) Elective arthroplasty Hip, pelvis, or leg fracture Acute spinal cord injury (< 1 month) Prophylaxis Regimen: Total Risk Factor Score Risk Level Prophylaxis Regimen 0-1 Low Early ambulation 2 Moderate Order ONE of the following: *Sequential Compression Device (SCD) *Heparin 5000 units SQ BID 3-4 Higher Order ONE of the following medications: *Heparin 5000 units SQ TID *Enoxaparin/Lovenox 40 mg SQ daily (WT < 150 kg, CrCl > 30 mL/min) *Enoxaparin/Lovenox 30 mg SQ daily (WT < 150 kg, CrCl > 10-29 mL/min) *Enoxaparin/Lovenox 30 mg SQ BID (WT < 150 kg, CrCl > 30 mL/min) AND/OR *Sequential Compression Device (SCD) 5 or more Highest Order ONE of the following medications: *Heparin 5000 units SQ TID (Preferred with Epidurals) *Enoxaparin/Lovenox 40 mg SQ daily (WT < 150 kg, CrCl > 30 mL/min) *Enoxaparin/Lovenox 30 mg SQ daily (WT < 150 kg, CrCl > 10-29 mL/min) *Enoxaparin/Lovenox 30 mg SQ BID (WT < 150 kg, CrCl > 30 mL/min) AND *Sequential Compression Device (SCD) Assessment and Plan - Assessment (1) Chest pain of uncertain etiology Code(s): R07.89 - Other chest pain Status: Acute Plan: Admitted to chest pain center. X2 sets of EKGs and cardiac enzymes unremarkable. Seen and evaluated by Dr. Amy Frost. Hypertensive, discomfort likely related to known coronary artery disease and uncontrolled hypertension. Restart home medications, consider adding metoprolol. Continue to monitor. Toradol 30 mg IV x1. Reassess. 1045 reassessed chest discomfort, reports discomfort much improved. Requesting to eat. 1245 Reports discomfort improved, reports to be "mild." Due to history of CAD and refractory pain plan is to admit to hospitalist for further recommendations. (2) Hypertension Code(s): I10 - Essential (primary) hypertension Status: Acute Plan: Continue amlodipine, HCTZ, and lisinopril. Begin metoprolol 25 mg twice daily. (3) CAD (coronary artery disease) Code(s): I25.10 - Atherosclerotic heart disease of [place] coronary artery without angina pectoris Status: Chronic Plan: Continue to monitor and rule out ACS. If patient continues to have discomfort, plans to call on-call business continuity specialist for second opinion. Attempt to obtain recent cardiac catheterization report from [facility]. (2) Hypertension Qualifiers: Hypertension type: unspecified Qualified Code(s): I10 - Essential (primary) hypertension (3) CAD (coronary artery disease) Qualifiers: Coronary Disease-Associated Artery/Lesion type: unspecified vessel or lesion type [place] vs. transplanted heart: beaver heart Associated angina: with unspecified angina Qualified Code(s): I25.119 - Atherosclerotic heart disease of [place] coronary artery with unspecified angina pectoris
[2018-01-06 11:35] LABS: Creatine Kinase 96 U/L (26-192)
--- NOTE | 2018-01-06 13:46 | P.PNIM ---
Subjective Interval history: f/u; chest pain in no acute distress. but has on and off midsternal chest pain. Physical Exam Vital signs: Vital Signs 01/06/18 01:15 01/06/18 02:26 01/06/18 02:30 Temperature 97.6 F Pulse Rate 70 72 Respiratory Rate 18 20 Blood Pressure 225/118 H 206/110 H Pulse Oximetry 99 99 98 01/06/18 03:20 01/06/18 03:30 01/06/18 03:37 Temperature Pulse Rate 75 65 Respiratory Rate 20 18 Blood Pressure 198/97 H 198/100 H Pulse Oximetry 98 98 97 01/06/18 04:15 01/06/18 05:50 01/06/18 06:30 Temperature Pulse Rate 62 72 68 Respiratory Rate 15 16 15 Blood Pressure 185/94 H 183/84 H 161/83 H Pulse Oximetry 96 97 97 01/06/18 07:41 01/06/18 12:27 Temperature Pulse Rate 70 54 L Respiratory Rate 17 16 Blood Pressure 145/78 H 139/79 Pulse Oximetry 96 98 Intake & Output 01/05/18 01/06/18 01/06/18 18:59 06:59 18:59 Weight 102.058 kg - Constitutional no acute distress - Routine Respiratory Exam Present: CTA bilaterally - Routine Cardiovascular Exam Present: RRR - Routine Abdominal Exam Present: soft - Routine Extremities Exam Comments: no pedal edema. - Routine Neurological Exam Present: alert, oriented X3 Results - Labs CBC & Chem 7: 01/06/18 02:45 01/06/18 03:49 Laboratory Results - last 24 hr 01/06/18 01/06/18 01/06/18 02:45 02:45 02:45 WBC 6.7 RBC 5.30 Hgb 15.3 Hct 45.5 MCV 85.9 MCH 28.8 MCHC 33.5 RDW 14.3 Plt Count 208 MPV 8.2 Neut % (Auto) 66.4 Lymph % (Auto) 21.0 [place] % (Auto) 8.6 H Eos % (Auto) 3.3 Baso % (Auto) 0.7 Neut # (Auto) 4.5 Lymph # (Auto) 1.4 [place] # (Auto) 0.6 Eos # (Auto) 0.2 Baso # (Auto) 0.0 WBC Differential . Differential Comment Auto diff final PT 10.0 INR 1.0 APTT 22.4 L Sodium Potassium Chloride Carbon Dioxide Anion Gap BUN Creatinine Estimated GFR Random Glucose Calcium Magnesium Total Bilirubin AST ALT Alkaline Phosphatase Total Creatine Kinase CK-MB (CK-2) Troponin I B-Natriuretic Peptide 35 Total Protein Albumin Lipase 01/06/18 01/06/18 01/06/18 02:45 03:49 06:50 WBC RBC Hgb Hct MCV MCH MCHC RDW Plt Count MPV Neut % (Auto) Lymph % (Auto) [place] % (Auto) Eos % (Auto) Baso % (Auto) Neut # (Auto) Lymph # (Auto) [place] # (Auto) Eos # (Auto) Baso # (Auto) WBC Differential Differential Comment PT INR APTT Sodium 142 Potassium 3.5 Chloride 104 Carbon Dioxide 25.7 Anion Gap 12 BUN 12 Creatinine 0.97 Estimated GFR 61 L Random Glucose 157 H Calcium 8.2 L Magnesium 2.4 Total Bilirubin 0.5 AST 58 H ALT 139 H Alkaline Phosphatase 122 H Total Creatine Kinase 137 106 CK-MB (CK-2) 1.4 Troponin I Less than 0.02 L Less than 0.02 L B-Natriuretic Peptide Total Protein 7.5 Albumin 3.6 Lipase 139 01/06/18 10:52 WBC RBC Hgb Hct MCV MCH MCHC RDW Plt Count MPV Neut % (Auto) Lymph % (Auto) [place] % (Auto) Eos % (Auto) Baso % (Auto) Neut # (Auto) Lymph # (Auto) [place] # (Auto) Eos # (Auto) Baso # (Auto) WBC Differential Differential Comment PT INR APTT Sodium Potassium Chloride Carbon Dioxide Anion Gap BUN Creatinine Estimated GFR Random Glucose Calcium Magnesium Total Bilirubin AST ALT Alkaline Phosphatase Total Creatine Kinase 96 CK-MB (CK-2) Troponin I Less than 0.02 L B-Natriuretic Peptide Total Protein Albumin Lipase - Imaging Impressions Chest X-Ray 01/06/18 02:36 CONCLUSION: Stable chest x-ray. No acute cardiopulmonary abnormality is identified. Assessment and Plan - Plan A/P - chest pain with history of CAD- s/p stent placement troponin and EKG's negative. had a recent stress test with no reversible ischemia continue with aspirin, plavix, metoprolol, lisinopril will consult cardiology. -hypertension; will continue with metoprolol, lisinopril and HCTZ- will monitor and adjust the regimen as needed. -elevated LFT's- no abdominal pain/ nausea or emesis- f/u as outpatient. Discharge Planning: awaiting cardiology evaluation.
[2018-01-06] MEDS ORDERED: Heparin/NS PF Inj 1,500 ML ONE (15:43)
[2018-01-06] MEDS ORDERED: Heparin 10,000 UNITS/10 ML Vial (for IV use) ONE (15:44)
[2018-01-06] MEDS ORDERED: diazePAM 5 MG Tablet PO SCH (15:45)
[2018-01-06] MEDS ORDERED: Iohexol 350 MG/ML 50 ML Vial (for Cath Lab) IVCONTRAST ONE (15:48)
[2018-01-06] MEDS ORDERED: Iohexol 350 MG/ML 100 ML Vial (for Cath Lab) IVCONTRAST ONE (15:48)
[2018-01-06] MEDS: Heparin/NS PF Inj 1,500 ML ONE ×2 (16:10→18:51)
[2018-01-06] MEDS ORDERED: fentaNYL Citrate Inj 100 MCG/2 ML Ampul ONE (16:11)
--- NOTE | 2018-01-06 16:25 | MB ---
cc: Ivan Rojas MD DATE: 01/06/2018 REASON FOR CONSULTATION: Evaluation of chest pain. HISTORY OF PRESENT ILLNESS: Brooklynn Barrientos is a 47-year-old woman with known coronary artery disease. She had an inferior STEMI 08/2007 and then had a stent placed to the right coronary artery, and then she had a non-STEMI in 05/2008 and had a stent of the second obtuse marginal branch. Then, 06/20/2009 at [facility] she underwent a diagnostic cardiac catheterization. Ejection fraction was 60%-65%. She had mild disease of the right coronary artery, some mild ostial disease of the first diagonal branch, nothing that required intervention. Then, apparently she had a catheterization around 2014 in [place] and had 1 stent placed. I do not have those records available. The patient comes in complaining of chest pain she has had for 5-6 days. This is her second admission to the hospital for it. Describes it as both sharp and heavy. She has a little bit of a pinch feeling when she tries to take a deep breath. The pain waxes and wanes. She saw Dr. Garces for consultation 01/02/2018. They did a nuclear stress test. Nuclear stress test was interpreted as intermediate risk with fixed defects in the anterior, apical, and inferolateral hong and no reversible defects and an ejection fraction of 41%. She also underwent a CTA for possible pulmonary embolism. CTA showed no evidence for a PE. She is admitted now with severe chest pain. Her troponins are negative. She is afraid to go home. She is very worried, having had 2 heart attacks in the past. She has not smoked apparently since her heart attacks. She also has a history of DVT prior to 2009. She had a [place] filter and she was on warfarin for a while. She is not on warfarin currently, but has had no DVT symptoms. MEDICATIONS: Include lisinopril, Norvasc, and Plavix. She has gotten these through [facility] in [place] and she is trying to get transferred here, but has not had any insurance. She has had longstanding hypertension since 2003. Her lipids are not available to me and will be measured. PAST MEDICAL HISTORY: Includes pseudotumor cerebri. She had stents. She had a lumbar peritoneal shunt placed 08/28/2005, replaced 11/06/2005, replaced 03/07/2006, and again 07/29/2006 and removed 10/02/2006. She has then had an eye procedure to accomplish this drainage and I am not sure the name of that. She has had previous cholecystectomy, previous ganglionic cyst in the right wrist removed, fracture of the right ankle, hypertension since 2003, left knee repair, previous DVT in the right leg and a [place] filter. ALLERGIES: INCLUDE CODEINE AND PHENOBARBITAL. FAMILY HISTORY: Father had bypass surgery at age 39. SOCIAL HISTORY: Quit smoking after heart attack. Works as a cook at a local restaurant. , has 1 son. REVIEW OF SYSTEMS: Otherwise noncontributory. PHYSICAL EXAMINATION: GENERAL: Obese, pleasant, white female in no acute distress. VITAL SIGNS: Charted. HEENT: Unremarkable. NECK: No JVD. No bruits. CHEST: Clear to auscultation. CARDIAC: Normal S1, S2. Regular rate and rhythm. No murmurs or gallops. ABDOMEN: Obese, soft, nontender. EXTREMITIES: Reveal no clubbing, cyanosis or edema. Femoral and pedal pulses are intact. LABORATORY DATA: EKG shows sinus bradycardia, first-degree AV block, and some subtle T-wave flattening. Laboratories are notable for serial troponins that are normal. Creatinine 0.97. Liver tests are elevated with an AST of 58, ALT of 139, alkaline phosphatase of 122. Radiographic studies were described above. IMPRESSION: Chest pain of unclear etiology. She describes it as both sharp and heavy. It could be related to ischemia but is certainly not classic. She has already been ruled out. She has already had a nuclear stress test and a CTA. Chest pain is ongoing. RECOMMENDATIONS: I had a long discussion with the patient about treatment options. I told her that objectively there is currently no evidence that her chest pain is cardiac-related. She is concerned because this chest pain she thinks it is similar to her previous heart attacks. I gave her the option of doing a diagnostic heart catheterization to resolve the issue as to whether she has a cardiac problem or not. Gave informed consent, including the risk of stroke, heart attack, and to do a diagnostic catheterization with the advantage of finding out if there are any lesions causing ischemia and also whether there is anything that she might benefit from in terms of revascularization. I told her heart catheterization was optional because of the lack of objective ischemia found so far, but we do not have an answer for why she has chest pain. After a thorough discussions, she voiced her opinion that she would like to go ahead with a cardiac catheterization and was okay with me doing it this afternoon. I have obtained informed consent for catheterization with possible intervention. I had mentioned the risk of stroke, heart attack, , as well as other risks. I would like to go radial because of her obesity. She has a significant scar over the right radial artery, so I am going to go from the left radial artery approach. laborer rags has been notified and arrangements are being made to proceed this afternoon. MD GINO Watkins/meg , 03:50 PM , 04:02 PM
[2018-01-06] MEDS ORDERED: Sod Chloride 0.9% Inj 1,000 ML IV.CONT SCH ×2 (17:00→18:00)
[2018-01-06] MEDS ORDERED: Nitroglycerin Drip Premix 50 MG/250 ML BOTTLE ONE (17:17)
[2018-01-06] MEDS ORDERED: Bacitracin Oint 0.9 GM Packet TOPICAL ONE (17:54)
--- NOTE | 2018-01-06 17:54 | CATHPROC ---
[employer] HIS Report Study Information Study Number Admission Scheduled Start Study Start [id number] Jan 06 2018 4:41AM 01/06/2018 Jan 06 2018 3:40PM [facility] Cardiac Catheterization Admit Source Facility Department Emergency department [facility] - Rn Transitional Physician and Clinical Staff Initial Ivan Fernando Painter Airbrushlarissa Jacobson RN, Derick Painter AirbrushAdia Moreno RN Other cathlab, cathlab Other Hanh Hoffman,RT(R) Recorder Eder Collins RCIS(BS) Scrub Radha Christianson ,RT(R) Procedures Performed Procedure Location (Site) Vessel Name Coronary Angiograms LCA Left Coronary Coronary Angiograms RCA Right Coronary Drug Eluting Inflatio RCA Prox Right Coronary L Heart Cath Wire insertion Radial (left) Radial Art. 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 Description Size Mfg Part Number Used/Scraped WIRE, BALANCE MIDDLEWEIGHT [id number] 17:00 [employer] 190CM Used 190CM *[id number] TRANSDUCER, TRUWAVE [id number] 15:42 BROWNLEE MOISE * Used W/STOCKCOCK *[id number] *[id number] *[id number] 534-545T *9362406 534-548T *0920444 534-520T *1824552 534-521T *[id number] [id number] *[id number] 15:42 MALLINCKRODT SYRINGE, ANGIOMAT 150ML 150ML *[id number] Used 2SUB [id number] 15:42 [employer]ensing [employer] Plus BLANKET,WARM AIR CCL * Used *[id number] 15:42 [employer] PACK, CCL CUSTOM * Used *[id number] 15:42 [employer]ensing [employer] Plus SUPPORT, ARTERIAL ADULT 44519 *1514683 Used [id number] 15:42 [employer] PACER PEN, SKIN DUAL W/ RULER * Used *[id number] 17:07 MEDTRONIC STENT, 4.0 12MM LELO 4.0 12MM Used *[id number] 17:05 [employer] 30 GABRIELLE INDEFLATOR Used *[id number] BAND, RADIAL COMPRESSION TR [id number] 17:37 [employer] MEDICAL 24CM Used SHORT 24 *5592535 [id number] 15:42 [employer] WIRE, EXCHANGE 260CM 3MMJ 260CM Used *[id number] 15:42 NAMIC MANIFOLD, 4 PORT * Used *[id number] 15:42 NYCOMED OMNIPAQUE, 350 MG, 100ML 100ML [id number] Used 15:42 Drivr JELCO NEEDLE 4056 *2709364 Used CATHETER, FR5 OPTITORQUE [id number] 16:06 TER[employer]O [employer] FR 5 Used RADIAL TIG 4.0 *[id number] SHEATH, FR6 TRANSRADIAL [id number] 15:42 [employer] FR 6 Used SLENDER 10CM *[id number] 17:07 VOLCANO PRIME WIRE, VERRATA 185CM 185CM Used *[id number] Equipment Model, Serial, Lot Number and Expiration Data Description Model Number Serial Number Lot Number Expiration Date PRIME WIRE, VERRATA 185CM [id number] 10-28-2020 STENT, 4.0 12MM LELO [id number] 06-02-2019 History: Risk Factors Family History of Hypertension Dyslipidemia Previous [place] Previous Heart Failure Premature CAD Yes Yes Yes Yes No Prior Valve Prior PCI Prior PCIDate Prior CABG Surgery No Yes 03/31/2015 No Cerebrovascular Peripheral Artery Chronic Lung On Dialysis Diabetes Disease Disease Disease No Yes Yes No No History: [place]/CV Data Previous Cath Date 03/31/2015 History: Other Current Smoker Method Quit Packs a Day Years Used Pack Years No Cigarettes 9 Years Ago 1 20 20 Labs Hgb (g/dl) Hct (%) WBC (l/cumm) Platelets (thousands) 11.60-17.00 35.00-51.00 4.00-11.00 150.00-450.00 15.3 45.5 6.7 208 Glucose (mg/dl) BUN (mg/dl) Creatinine (mg/dl) BUN:Creatinine (1:x) 74.00-106.00 7.00-18.00 0.50-1.30 10.00-20.00 157 12 0.9 13.3 Na (meq/l) K (meq/l) 136.00-145.00 3.50-5.10 142 3.5 INR (PTT:PT) 0.90-1.10 1 Troponin I (ng/ml) CPK-MB (ng/ML) 0.02-0.05 0.50-3.60 0.02 Not Drawn Medication Medication Total Dose (Bolus/Oral) Medication Total Dosage/Unit 1% XYLOCAINE 2 mL ASPIRIN 324 mg FENTANYL 100 mcg HEPARIN 5000 units NTG (IC) 400 mcg PLAVIX 600 mg RADIAL COCKTAIL 10 mL (Bolus) VERSED 2 mg Medications (Bolus/Oral) Medication Time Given Dosage/Unit Administered By Reason FENTANYL 01/06/2018 4:22:02 PM 50 mcg Adia Wagner 50 mcg FENTANYL given in lab by Adia Wagner RN in Right Antecubital via Peripheral IV. Ordered Ivan Goff. VERSED 01/06/2018 4:22:56 PM 1 mg Adia Wagner 1 mg VERSED given in lab by Adia Wagner RN in Right Antecubital via Peripheral IV. Ordered by Ivan Franks. 1% XYLOCAINE 01/06/2018 4:23:28 PM 2 mL Ivan Rojas 2 mL 1% XYLOCAINE given in lab by Ivan Rojas in Left Radial via Subcutaneous. VERSED 01/06/2018 4:26:32 PM 1 mg Adia Wagner 1 mg VERSED given in lab by Adia Wagner RN in Right Antecubital via Peripheral IV. Ordered by Ivan Franks. Ntg 300mcg Verapamil 2.5mg Heparin RADIAL COCKTAIL 01/06/2018 4:27:18 PM 5 mL (Bolus) Ivan Rojas 2500U 5 mL (Bolus) RADIAL COCKTAIL given in lab by Ivan Rojas in Left Radial via Radial. Using [Solution Name]. Reason: Ntg 300mcg Verapamil 2.5mg Heparin 2500U. FENTANYL 01/06/2018 4:46:26 PM 25 mcg Adia Wagner 25 mcg FENTANYL given in lab by Adia Wagner RN in Right Antecubital via Peripheral IV. Ordered Ivan Goff. HEPARIN 01/06/2018 4:58:50 PM 5000 units Adia Wagner 5000 units HEPARIN given in lab by Adia Wagner RN in Right Antecubital via Peripheral IV. Ordere d by Ivan Rojas. ASPIRIN 01/06/2018 5:04:28 PM 324 mg Adia Wagner 324 mg ASPIRIN given in lab by Adia Wagner, CROW via Oral. Ordered by Ivan Rojas. NTG (IC) 01/06/2018 5:07:33 PM 100 mcg Hanh Hoffman 100 mcg NTG (IC) given in lab by Hanh Hoffman RT(R) in Left Radial via Intra-coronary. Ordered by Ivan Rojas. NTG (IC) 01/06/2018 5:16:13 PM 200 mcg Hanh Hoffman 200 mcg NTG (IC) given in lab by Hanh Hoffman RT(R) in Left Radial via Intra-coronary. Ordered by Ivan Rojas. NTG (IC) 01/06/2018 5:16:46 PM 100 mcg Hanh Hoffman 100 mcg NTG (IC) given in lab by Hanh Hoffman RT(R) in Left Radial via Intra-coronary. Ordered by Ivan Rojas. Ntg 200mcg Verapamil 2.5mg Heparin RADIAL COCKTAIL 01/06/2018 5:22:55 PM 5 mL (Bolus) Ivan Rojas 2000U 5 mL (Bolus) RADIAL COCKTAIL given in lab by Adia Wagner, CROW via Radial. Using [Solution Name]. O rdered by Ivan Rojas. Reason: Ntg 200mcg Verapamil 2.5mg FENTANYL 01/06/2018 5:23:30 PM 25 mcg Adia Wagner 25 mcg FENTANYL given in lab by Adia Wagner, CROW in Right Antecubital via Peripheral IV. Ordered b y Ivan Rojas. PLAVIX 01/06/2018 5:45:20 PM 600 mg Adia Wagner 600 mg PLAVIX given in lab by Adia Wagner, CROW via Oral. Ordered by Ivan Rojas. Medication (Drip) Medication Time Given Dosage/Unit Concentration/Unit Diluent (ml) Solution IV Solutions 01/06/2018 3:50:02 PM 0 mL (IV) 500 NaCl .9 IV Solutions given in lab by Derick Jacobson RN in Left Forearm via Peripheral IV. Pump/Drip Flow = 20 m l/hr using NaCl .9. Ordered by Ivan Rojas. NITROGLYCERIN DRIP 01/06/2018 5:21:19 PM 10 mcg/min 50 mg 250 D5W 10 mcg/min NITROGLYCERIN DRIP given in lab by Adia Wagner, CROW in Right Antecubital via Peripheral IV. Pump/Drip Flow = 3 ml/hr using D5W with a concentration of 50 mg in 250 ml. Ordered by Iavn Rojas. NITROGLYCERIN DRIP 01/06/2018 5:47:31 PM 15 mcg/min 50 mg 250 D5W 15 mcg/min NITROGLYCERIN DRIP given in lab by Adia Wagner RN in Right Antecubital via Peripheral IV. Pump/Drip Flow = 4.5 ml/hr using D5W with a concentration of 50 mg in 250 ml. Ordered by Ivan Rojas. Initial Case Assessment Cardiovascular HR Rhythm NIBP Chest Pain 68 nsr 185/105 5 Edema Present Skin color Skin None Normal Warm Dry Circulatory - Right Pulses Dorsalis Pedis Femoral 3 3 Scale (0,1,2,3,4,d) Circulatory - Left Pulses Dorsalis Pedis Femoral 3 3 Scale (0,1,2,3,4,d) Neurological State Oriented to time-place- Alert Moves all extremities person Respiration - General Respiration Rate SpO2 (%) (B/min) 15 99 Final Case Assessment Cardiovascular HR Rhythm NIBP Chest Pain 59 nsr 163/95 6 Edema Present Skin color Skin None Normal Warm Dry Circulatory - Right Pulses Dorsalis Pedis Femoral 3 3 Scale (0,1,2,3,4,d) Circulatory - Left Pulses Dorsalis Pedis Femoral 3 3 Scale (0,1,2,3,4,d) Neurological State Oriented to time-place- Alert Moves all extremities person Respiration - General Respiration Rate SpO2 (%) (B/min) 15 99 Chronological Log Time Study Chronological Log 15:48:13 Patient arrived via Bed. 15:48:14 Patient Name, D.O.B, / Armband Verified By R.N. 15:48:17 Consent signed by the physician and the patient and verified by the Rn Transitional staff. 15:49:49 Pre-op and post- op instructions given; patient acknowledges understanding of instructions. 15:49:51 Patient has been NPO for More than 6Hrs. 15:49:53 Skin Breakdown- none per patient 15:49:58 Patient Warmer Placed on the Table. 15:50:00 Carlotta Prominences Protected 15:50:01 A # 20 IV was noted in the Forearm (left). Grade = 0 IV Solutions given in lab by Derick Jacobson RN in Left Forearm via Peripheral IV. Pump/Drip Flow = 20 ml/hr using NaCl .9. 15:50:02 Ordered by Ivan Rojas. 15:51:43 History and physical on the chart or being dictated. 15:58:25 Reference ECG taken Vitals capture started with the following parameters, Patient=Adult, Interval=5 min, Initial Pr amijjv=303 mmHg, 15:59:14 Deflation Rate=5 mmHg, Cuff placed on Left Arm 15:59:48 Vitals capture stopped. 16:02:49 Allens test performed on the left radial and ulnar artery. POSITIVE. Vitals capture started with the following parameters, Patient=Adult, Interval=5 min, Initial Pr rtfsij=421 mmHg, 16:05:55 Deflation Rate=5 mmHg, Cuff placed on Left Arm 16:06:47 A # 22 IV was noted in the Antecubital (right). Grade = 0 16:07:06 HR=64 bpm, JHQA=696/105 mmhg, SpO2=99.0 %, Resp=15 B/min, Pain=5, Wilver=10, Collado=2 Assessment: Initial Case, HR=68 BPM, Rhythm=nsr, FLWM=233/105 mmhg, Chest Pain=5, Edema=None, Color=Normal, Skin = Warm, Dry Right Pulses: Ter Ped=3, Femoral=3 16:07:35 Left Pulses: Tre Ped=3, Femoral=3 Neurological: State=Alert, Ox3, PINK Respiration: Resp=15 B/min, SpO2=99 % 16:08:20 Left Radial and groin(s) prepped with 2% chlorhexidine, and draped after a 3 min. waiting t helena. 16:11:40 HR=75 bpm, GQJE=939/112 mmhg, SpO2=98.0 %, Resp=13 B/min, Pain=5, Wilver=10, Collado=2 16:12:54 MD paged 16:13:53 Pressure channel 1 zeroed. 16:16:41 HR=62 bpm, HNPI=546/102 mmhg, NkC6=096.0 %, Resp=8 B/min, Pain=5, Wilver=10, Collado=2 16:17:57 MD arrived. 16:18:23 Contrast Scanned 16:18:24 Immediate Presedation assesment performed by physician. 16:21:38 HR=65 bpm, TUKP=909/110 mmhg, NtR9=384.0 %, Resp=9 B/min, Pain=5, Wilver=10, Collado=2 16:22:02 50 mcg FENTANYL given in lab by Adia Wagner, RN in Right Antecubital via Peripheral IV. Ordered by Ivan Rojas. 16:22:56 1 mg VERSED given in lab by Adia Wagner, RN in Right Antecubital via Peripheral IV. Ord ered by Ivan Rojas. Time Out. Correct patient, correct procedure, correct physician, labs, allergies, and equipment verified with agriculture laboratory technician 16:23:02 team present. Fire risk assesment completed (see hard stop sheet for coding). Time Out Conc urred by MD and individual staff in procedure. 16:23:27 Case Start 16:23:28 2 mL 1% XYLOCAINE given in lab by Ivan Rojas in Left Radial via Subcutaneous. 16:26:32 1 mg VERSED given in lab by Adia Wagner, RN in Right Antecubital via Peripheral IV. Ord ered by Ivan Rojas. 16:26:41 HR=59 bpm, CGRV=280/97 mmhg, SpO2=97.0 %, Resp=13 B/min, Pain=5, Wilver=10, Collado=2 16:27:00 Access site was Left Radial Artery. A SHEATH, FR6 TRANSRADIAL SLENDER 10CM FR 6 was advanced into the Radial (left) using the Anita guerra 16:27:05 technique. 5 mL (Bolus) RADIAL COCKTAIL given in lab by Ivan Rojas in Left Radial via Radial. Using [So lution Name]. Reason: 16:27:18 Ntg 300mcg Verapamil 2.5mg Heparin 2500U. A JL 4.0 INFINITI CATHETER FR 5 was advanced over a wire. OMNIPAQUE, 350 MG, 100ML 100ML was us ed for 16:30:05 injections. 16:31:38 HR=75 bpm, FEHB=662/95 mmhg, SpO2=95.0 %, Resp=10 B/min, Pain=5, Wilver=10, Collado=2 Recorded Pressure: Ao, HR=71, Condition=Condition 1 16:33:55 (Aorta) Ao 124/79/97 16:34:02 The LCA was injected and visualized at various angles. OMNIPAQUE, 350 MG, 100ML 100ML used . 16:36:33 HR=63 bpm, IQRR=380/93 mmhg, SpO2=96.0 %, Resp=19 B/min, Pain=5, Wilver=10, Collado=2 After removing the current catheter a JR 4.0 INFINITI CATHETER FR 5 was advanced over a WIRE, E XCHANGE 260CM 16:37:27 3MMJ 260CM. After removing the current catheter a 3DRC INFINITI CATHETER FR 5 was advanced over a WIRE, EXC HANGE 260CM 16:41:13 3MMJ 260CM. 16:41:36 HR=62 bpm, GPHF=392/91 mmhg, SpO2=98.0 %, Resp=20 B/min, Pain=5, Wilver=10, Collado=2 After removing the current catheter a AR MOD INFINITI CATHETER FR 5 was advanced over a WIRE, E XCHANGE 260CM 16:45:40 3MMJ 260CM. 16:46:26 25 mcg FENTANYL given in lab by Adia Wagner, RN in Right Antecubital via Peripheral IV. Ordered by Ivan Rojas. 16:47:22 HR=76 bpm, YDNL=551/92 mmhg, YbO3=679.0 %, Resp=13 B/min, Pain=5, Wilver=10, Collado=2 16:49:42 The RCA was injected and visualized at various angles. OMNIPAQUE, 350 MG, 100ML 100ML used . After removing the current catheter a AL 1 INFINITI CATHETER FR 5 was advanced over a WIRE, EXC HANGE 260CM 16:50:21 3MMJ 260CM. 16:51:38 HR=59 bpm, LFSZ=345/92 mmhg, SpO2=99.0 %, Resp=15 B/min 16:53:01 The RCA was injected and visualized at various angles. OMNIPAQUE, 350 MG, 100ML 100ML used . 16:56:39 HR=64 bpm, SCZZ=116/93 mmhg, SpO2=99.0 %, Resp=20 B/min, Pain=5, Wilver=10, Collado=2 5000 units HEPARIN given in lab by Adia Wagner, RN in Right Antecubital via Peripheral IV. Ordered by Bob 16:58:50 Ivan. 17:01:43 HR=65 bpm, WXWT=994/100 mmhg, XhZ0=646.0 %, Resp=15 B/min, Pain=5, Wilver=10, Collado=2 Recorded Pressure: LV, Ao, HR=65, Condition=Condition 1 17:01:56 (Left Ventricle) LV 181/7/18, (Aorta) Ao 177/89/127 After removing the current catheter a AL 1 GUIDE CATHETER FR 6 was advanced over a WIRE, EXCHAN GE 260CM 17:02:46 3MMJ 260CM. 17:04:28 324 mg ASPIRIN given in lab by Adia Wagner, RN via Oral. Ordered by Ivan Rojas. 17:04:59 A WIRE, BALANCE MIDDLEWEIGHT 190CM 190CM was inserted via Radial (left). 17:05:52 Interventional wire has crossed the lesion A STENT, 4.0 12MM LELO 4.0 12MM was advanced through a AL 1 GUIDE CATHETER FR 6 over a WIRE, BA SONIA 17:06:00 MIDDLEWEIGHT 190CM 190CM. 17:06:44 HR=63 bpm, OALA=260/103 mmhg, HjL0=140.0 %, Resp=16 B/min, Pain=5, Wilver=10, Collado=2 17:07:33 100 mcg NTG (IC) given in lab by Hanh Hoffman, RT(R) in Left Radial via Intra-coronary. O rdered by Ivan Rojas. A STENT, 4.0 12MM LELO 4.0 12MM was deployed using a 30 GABRIELLE INDEFLATOR at 14 atmospheres for 24 seconds in 17:10:21 the RCA Prox. 17:11:03 Delivery device removed 17:11:47 HR=63 bpm, QZNN=068/102 mmhg, YwR4=921.0 %, Resp=17 B/min, Pain=5, Wilver=10, Collado=2 17:13:37 Wire removed 17:14:29 The RCA was injected and visualized at various angles. OMNIPAQUE, 350 MG, 100ML 100ML used . 17:15:25 ACT (Normal Range 90-180) = 330 17:16:13 200 mcg NTG (IC) given in lab by Hanh Hoffman, RT(R) in Left Radial via Intra-coronary. O rdered by Ivan Rojas. 17:16:46 HR=69 bpm, GMSO=000/115 mmhg, SpO2=99.0 %, Resp=17 B/min, Pain=5, Wilver=10, Collado=2 17:16:46 100 mcg NTG (IC) given in lab by Hanh Hoffman, RT(R) in Left Radial via Intra-coronary. O rdered by Ivan Rojas. 17:17:58 The LCA was injected and visualized at various angles. OMNIPAQUE, 350 MG, 100ML 100ML used . Recorded Pressure: LV, HR=74, Condition=Condition 1 17:18:27 (Left Ventricle) LV 182/10/10 Recorded Pressure: LV, Ao, HR=74, Condition=Condition 1 17:18:43 (Left Ventricle) LV 176/8/12, (Aorta) Ao 195/109/143 10 mcg/min NITROGLYCERIN DRIP given in lab by Adia Wagner, CROW in Right Antecubital via Vero pheral IV. 17:21:19 Pump/Drip Flow = 3 ml/hr using D5W with a concentration of 50 mg in 250 ml. Ordered by Ivan Rojas. 17:21:43 HR=66 bpm, LGAU=220/109 mmhg, SpO2=99.0 %, Resp=15 B/min, Pain=5, Wilver=10, Collado=2 5 mL (Bolus) RADIAL COCKTAIL given in lab by Adia Wagner, CROW via Radial. Using [Solution Na me]. Ordered by 17:22:55 Ivan Rojas. Reason: Ntg 200mcg Verapamil 2.5mg 17:23:30 25 mcg FENTANYL given in lab by Adia Wagner, CROW in Right Antecubital via Peripheral IV. Ordered by Ivan Rojas. After removing the current catheter a XB 3.5 GUIDE CATHETER FR 6 was advanced over a WIRE, EXCH RITA 260CM 17:23:30 3MMJ 260CM. 17:26:48 HR=63 bpm, MYHT=770/98 mmhg, SpO2=98.0 %, Resp=14 B/min, Pain=5, Wilver=10, Collado=2 17:30:31 A PRIME WIRE, VERRATA 185CM 185CM was inserted via Radial (left). 17:31:43 HR=61 bpm, ILRI=830/95 mmhg, SpO2=99.0 %, Resp=14 B/min, Pain=5, Wilver=10, Collado=2 17:32:08 Interventional wire has crossed the lesion 17:32:57 Flow Wire was was placed in the LAD Mid. The FFR measures ~FFR~ percent. The IFR measures 9 3 Percent. 17:34:00 Flow Wire was was placed in the LAD Mid. The FFR measures ~FFR~ percent. The IFR measures 9 2 Percent. 17:34:02 Flow Wire was was placed in the LAD Mid. The FFR measures ~FFR~ percent. The IFR measures 9 1 Percent. 17:34:32 Wire removed 17:34:49 Catheter was removed 17:34:59 Case End (Physician broke scrub) Assessment: Final Case, HR=59 BPM, Rhythm=nsr, KYCB=732/95 mmhg, Chest Pain=6, Edema=None, [place] r=Normal, Skin = Warm, Dry Right Pulses: Tre Ped=3, Femoral=3 17:35:14 Left Pulses: Tre Ped=3, Femoral=3 Neurological: State=Alert, Ox3, PINK Respiration: Resp=15 B/min, SpO2=99 % 17:35:45 Catheter(s) removed without difficulty Radial Compression Device Used. 13 mLs of air placed in BAND, RADIAL COMPRESSION TR SHORT 24 24 CM. Affected 17:36:19 hand 99 % O2 saturation. 17:36:28 Sterile dressing applied to site 17:36:29 No case complications noted. 17:36:29 Cine recording checked. 17:36:33 Bedside Report will be given. 17:36:36 Implantable Device card placed in patient's chart. 17:36:38 A Left Heart Cath was performed. 17:36:42 HR=59 bpm, XPIY=094/95 mmhg, SpO2=99.0 %, Resp=12 B/min, Pain=5, Wilver=10, Collado=2 17:41:39 HR=58 bpm, VBRF=018/97 mmhg, XhX4=098.0 %, Resp=14 B/min, Pain=5, Wilver=10, Collado=2 17:45:20 600 mg PLAVIX given in lab by Adia Wagner, CROW via Oral. Ordered by Ivan Rojas. 17:46:42 HR=66 bpm, GEOW=269/95 mmhg, SqY7=732.0 %, Resp=13 B/min, Pain=5, Wilver=10, Collado=2 15 mcg/min NITROGLYCERIN DRIP given in lab by Adia Wagner, RN in Right Antecubital via Vero pheral IV. 17:47:31 Pump/Drip Flow = 4.5 ml/hr using D5W with a concentration of 50 mg in 250 ml. Ordered by Ivan Rojas. 17:48:05 Vitals capture stopped. 17:48:06 Patient moved to stretcher Vitals capture started with the following parameters, Patient=Adult, Interval=5 min, Initial Pr sqaifu=111 mmHg, 17:52:01 Deflation Rate=5 mmHg, Cuff placed on Left Arm 17:52:43 WQRL=041/89 mmhg, Pain=5, Wilver=10, Collado=2 17:52:53 Vitals capture stopped. End Study - Contrast Media Used In Study Contrast Total Opened (mL) Total Used (mL) Total Wasted (mL) Omnipaque 150 150 0 End Study - Maximum Contrast Load Max Contrast Load (mL) 566.7 End Study - Radiation Exposure Fluoro Time (minutes) 17.6 End Study - Patient Disposition Complications Transferred To Interventional Outcome No Telemetry Bed successful
[2018-01-06] MEDS ORDERED: Misc Info for Pharmacy OTHER SCH (18:00)
[2018-01-06] MEDS ORDERED: Nitroglycerin Drip Premix 50 MG/250 ML BOTTLE IV.SIG SCH (19:15)
--- NOTE | 2018-01-06 19:17 | MA ---
cc: Ivan Rojas MD DATE: 01/06/2018 PROCEDURES PERFORMED: Left heart catheterization, coronary angiography, stenting of the proximal right coronary artery, instantaneous wave-free ratio measurement of the left anterior descending. DESCRIPTION OF PROCEDURE: The patient was brought to the cardiac catheterization lab in the fasting state. The right wrist had a significant scar, although there was a palpable artery about it. The left wrist had a very good pulse. I opted to use the left wrist. She was obese, so I did not want to femoral. Access in the left wrist was obtained easily and a Terumo slender sheath placed. Standard cocktail was administered. I then did left coronary angiography with a left 4 Sabrina catheter. I then tried angiography of the right coronary artery with right projections with a 3DRC and a right Amplatz before I realized there was a high anterior takeoff and I easily cannulated it with a left 1 Amplatz. Angiography demonstrated an ulcerated complex proximal right coronary stenosis and an indeterminate mid LAD stenosis. I used a 6 Irish AL1 guiding catheter to engage the right coronary artery and wired it with a BMW wire and then directly stented utilizing a 4.0 x 12 mm Byron stent at 14 atmospheres. Angiography was obtained in multiple angulated projections. Result was acceptable with no residual stenosis. I tried to see if I could engage the left coronary artery, but the catheter was too small to engage the left coronary artery, so it was removed. I used an XB4 guiding catheter to engage the left main. I then used a pressure wire and did IFR measurement of the mid LAD lesion. I made 3 measurements of 0.910, 0.92 and 0.93. I decided not to pursue the LAD further and manage the LAD medically. The guiding catheter was removed. The sheath was removed and the Terumo band placed. There were no complications. The procedure notably was done with IV heparin with a therapeutic ACT achieved. FINDINGS: 1. HEMODYNAMICS: Left ventricular pressure was 176/8 with an end-diastolic pressure of 12. Aortic pressure was 195/109 with a mean of 143. IV nitroglycerin was started for hypertension during the case. 2. CORONARY ANGIOGRAPHY: Left main coronary artery is normal appearing. It bifurcates into the LAD and circumflex vessels. The LAD gives off a large marginal branch and a large posterolateral branch as well as an AV groove circumflex. The posterolateral branch or alternatively could be called the second obtuse marginal branch has a visible stent that is widely patent. The distal end of the stent has about 30% stenosis. The obtuse marginal branch has irregularities only. The proximal LAD appears normal. The mid LAD is somewhat tortuous and just before a prominent turn in the mid LAD, there is a focal 50% to 60% stenosis. There is a diagonal branch given off at the same level, which appears to be probably occluded with omly-qd-hawy collaterals. The remainder of the LAD appears normal. The right coronary artery is a dominant. This vessel has an ulcerated proximal plaque with 80% severity stenosis. There is a stent in the mid right coronary artery that is widely patent. 3. RESULTS OF STENTING: After stenting the proximal right, the 80% stenosis reduced to 0% without evidence of thrombus or dissection. CONCLUSIONS: 1. Arterial hypertension. 2. Two-vessel coronary artery disease with high-grade proximal right coronary artery stenosis and mid left anterior descending stenosis not severe enough to warrant intervention. 3. Successful drug-eluting stent implantation of the proximal right coronary artery. PLAN: The patient will be continued on aspirin and Plavix. We will watch her overnight and anticipate discharge tomorrow if stable. MD GINO Watkins/jaimie , 05:53 PM , 06:04 PM
[2018-01-06] MEDS ORDERED: hydrALAZINE 50 MG Tablet PO PRN (21:13)
[2018-01-07 03:18] VITALS: RESP 16
[2018-01-07 04:16] VITALS: O2SAT 98
--- NOTE | 2018-01-07 06:55 | ECG ---
Date Performed: 01/06/2018 Time Performed: 06:40:20 PTAGE: 47 years EKG: Sinus rhythm POSSIBLE LEFT VENTRICULAR HYPERTROPHY MODERATE T-WAVE ABNORMALITY, CONSIDER INFERIOR ISCHEMIA ABNORM AL ECG Since PREVIOUS TRACING , no significant change noted PREVIOUS TRACIN01/06/2018 01.43 DOCTOR: Amy Frost Interpretating Date/Time 01/07/2018 06:54:45
--- NOTE | 2018-01-07 06:55 | ECG ---
Date Performed: 01/06/2018 Time Performed: 01:43:00 PTAGE: 47 years EKG: Sinus rhythm LEFT VENTRICULAR HYPERTROPHY AND ST-T CHANGE ABNORMAL ECG Since PREVIOUS TRACING , no significant change noted PREVIOUS TRACIN01/02/2018 07.01 DOCTOR: Amy Frost Interpretating Date/Time 01/07/2018 06:54:34
--- NOTE | 2018-01-07 07:38 | P.PNCA ---
Subjective Interval history: No complaints, feels well Medications and Allergies Active Medications: Active Medications Acetaminophen (Tylenol) 500 mg PO Q4H PRN PRN Reason: HEADACHE Hydrocodone Bitart/Acetaminophen (Java 7.5/325) 1 tab PO Q4H PRN PRN Reason: PAIN SCALE 1 TO 7 Last Admin: 01/06/18 20:24 Dose: 1 tab Amlodipine Besylate (Norvasc) 10 mg PO DAILY [facility] Last Admin: 01/06/18 09:00 Dose: 10 mg Aspirin (Aspirin Chew) 81 mg PO DAILY [facility] Atorvastatin Calcium (Lipitor) 10 mg PO HS [facility] Last Admin: 01/06/18 21:39 Dose: 10 mg Clopidogrel Bisulfate (Plavix) 75 mg PO DAILY [facility] Diazepam (Valium) 5 mg PO SURGICAL NURSE [facility] Stop: 01/10/18 15:44 Diphenhydramine HCl (Benadryl Inj) 25 mg IV.PUSH SURGICAL NURSE [facility] Stop: 01/10/18 15:59 Famotidine (Pepcid) 20 mg PO BID [facility] Last Admin: 01/06/18 21:39 Dose: 20 mg Hydralazine HCl (Apresoline) 50 mg PO Q6H PRN PRN Reason: SYSTOLIC BP >160 Hydrochlorothiazide (Hydrodiuril) 25 mg PO DAILY [facility] Last Admin: 01/06/18 09:00 Dose: 25 mg Sodium Chloride (Ns Inj) 1,000 mls @ 100 mls/hr IV.CONT .Q10H [facility] Last Admin: 01/06/18 23:55 Dose: 100 mls/hr Nitroglycerin/Dextrose (Nitroglycerin Drip Premix) 50 mg in 250 mls @ 4.5 mls/ hr IV.SIG Q24H [facility] Last Admin: 01/06/18 23:56 Dose: 15 mcg/min, 4.5 mls/hr Lisinopril (Prinivil) 40 mg PO DAILY [facility] Last Admin: 01/06/18 08:59 Dose: 40 mg Metoprolol Tartrate (Lopressor) 25 mg PO BID [facility] Last Admin: 01/06/18 23:45 Dose: Not Given Miscellaneous Information (Misc Info For Pharmacy/Read Comments) 1 each OTHER UNSCH [facility] Ondansetron HCl (Zofran Inj) 4 mg IV.PUSH Q6H PRN PRN Reason: NAUSEA Last Admin: 01/06/18 21:12 Dose: 4 mg Sodium Chloride (Ns Flush) 2 ml IV.FLUSH BID [facility] Last Admin: 01/06/18 21:40 Dose: 2 ml Sodium Chloride (Ns Flush) 2 ml IV.FLUSH PRN PRN PRN Reason: FLUSH AFTER USING IV ACCESS Allergies Allergy/AdvReac Type Severity Reaction Status Date / Time codeine Allergy Severe RASH, N/V Verified 08/11/17 17:23 phenobarbital Allergy Severe Verified 08/11/17 17:23 Home Medications Medication Instructions Recorded Confirmed Type amlodipine [Norvasc] 10 mg PO DAILY 01/02/18 01/06/18 History aspirin 325 mg PO QPM 01/02/18 01/06/18 History clopidogrel [Plavix] 75 mg PO DAILY 01/02/18 01/06/18 History lisinopril 40 mg PO DAILY 01/02/18 01/06/18 History Physical Exam Vital signs: Vital Signs 01/06/18 07:41 01/06/18 12:27 01/06/18 18:00 Temperature 97.5 F L Pulse Rate 70 54 L 62 Respiratory Rate 17 16 18 Blood Pressure 145/78 H 139/79 175/91 H Pulse Oximetry 96 98 98 01/06/18 19:00 01/06/18 20:00 01/06/18 21:00 Temperature 97.8 F Pulse Rate 66 59 L 60 Respiratory Rate 16 Blood Pressure 164/100 H Pulse Oximetry 96 01/06/18 22:00 01/06/18 23:00 01/06/18 23:45 Temperature 97.9 F Pulse Rate 62 62 Respiratory Rate 16 Blood Pressure 155/79 H Pulse Oximetry 96 96 01/07/18 00:00 01/07/18 01:00 01/07/18 02:00 Temperature Pulse Rate 62 56 L 59 L Respiratory Rate Blood Pressure Pulse Oximetry 01/07/18 03:00 01/07/18 04:00 01/07/18 05:00 Temperature 98 F Pulse Rate 56 L 57 L 54 L Respiratory Rate 16 Blood Pressure 133/78 Pulse Oximetry 98 01/07/18 06:00 Temperature Pulse Rate 57 L Respiratory Rate Blood Pressure Pulse Oximetry Intake & Output 01/06/18 01/07/18 01/07/18 18:59 06:59 18:59 Intake Total 480 / 480 Output Total 1000 / 1000 Balance -520 / -520 Weight 106.5 kg Intake: IV Heparin/NS PF Inj 1,500 ML @ 0 mls/hr .ROUTE .[employer] Rx#: [id number] Oral 480 / 480 Output: Urine 1000 / 1000 Other: # Bowel Movements 0 Narrative: Alert no JVD Chest CTA CV S1S2 RRR Abd soft Ext no CCE Left wrist OK, pulses intact Results 01/06/18 02:45 01/06/18 03:49 Cardiac Enzymes 01/06/18 01/06/18 01/06/18 Range/Units 02:45 02:45 03:49 AST 58 H (15-37) U/L CK-MB (CK-2) 1.4 (0.5-3.6) ng/mL Troponin I Less than 0.02 L (0.02-0.05) ng/mL B-Natriuretic Peptide 35 (0-100) pg/mL 01/06/18 01/06/18 Range/Units 06:50 10:52 AST (15-37) U/L CK-MB (CK-2) (0.5-3.6) ng/mL Troponin I Less than 0.02 L Less than 0.02 L (0.02-0.05) ng/mL B-Natriuretic Peptide (0-100) pg/mL Coagulation 01/06/18 01/06/18 Range/Units 02:45 02:45 PT 10.0 (9.8-11.6) sec APTT 22.4 L (24.3-30.1) sec B-Natriuretic Peptide 35 (0-100) pg/mL CBC 01/06/18 Range/Units 02:45 WBC 6.7 (4.0-11.0) th/mm3 RBC 5.30 (4.00-5.30) mil/mm3 Hgb 15.3 (11.6-15.3) gm/dL Hct 45.5 (35.0-46.0) % Plt Count 208 (150-450) th/mm3 Neut # (Auto) 4.5 (1.8-7.7) th/mm3 Lymph # (Auto) 1.4 (1.0-4.8) th/mm3 [place] # (Auto) 0.6 (0.0-0.9) th/mm3 Eos # (Auto) 0.2 (0.0-0.4) th/mm3 Baso # (Auto) 0.0 (0.0-0.2) th/mm3 Comprehensive Metabolic Panel 01/06/18 Range/Units 03:49 Sodium 142 (136-145) meq/L Potassium 3.5 (3.5-5.1) meq/L Chloride 104 (98-107) meq/L Carbon Dioxide 25.7 (21.0-32.0) meq/L BUN 12 (7-18) mg/dL Creatinine 0.97 (0.50-1.00) mg/dL Calcium 8.2 L (8.5-10.1) mg/dL AST 58 H (15-37) U/L ALT 139 H (10-53) U/L Alkaline Phosphatase 122 H (45-117) U/L Total Protein 7.5 (6.4-8.2) g/dL Albumin 3.6 (3.4-5.0) g/dL Intake and Output 01/06/18 01/07/18 01/07/18 22:59 06:59 14:59 Intake Total 480 / 480 Output Total 1000 / 1000 Balance -520 / -520 Intake: IV Heparin/NS PF Inj 1,500 ML @ 0 mls/hr .ROUTE [facility] Rx#: [id number] Oral 480 / 480 Output: Urine 1000 / 1000 Other: # Bowel Movements 0 Weight 106.5 kg - Imaging and Cardiology Imaging: Impressions Chest X-Ray 01/06/18 02:36 CONCLUSION: Stable chest x-ray. No acute cardiopulmonary abnormality is identified. Assessment and Plan - Assessment (1) Unstable angina pectoris Code(s): I20.0 - Unstable angina Status: Acute Plan: resolved (2) Stented coronary artery Code(s): Z95.5 - Presence of coronary angioplasty implant and graft Status: Acute Plan: cont ASA and clopidogrel (3) Hypertension Code(s): I10 - Essential (primary) hypertension Status: Acute Plan: cont anti-HTN meds - Plan Discussed compliance with meds. OV 1 week. Return to work 2 weeks, Heart healthy diet. Lose weight. No smoking. (3) Hypertension Qualifiers: Hypertension type: unspecified Qualified Code(s): I10 - Essential (primary) hypertension
[2018-01-07 07:47] LABS: Calcium 7.9 mg/dL (8.5-10.1); Carbon Dioxide 29.2 meq/L (21.0-32.0); Potassium 3.5 meq/L (3.5-5.1)
[2018-01-07 07:49] LABS: Chol/HDL Ratio 4.4 Ratio; HDL Cholesterol 38.1 mg/dL (40.0-60.0)
[2018-01-07 08:22] VITALS: BP 134/85; TEMP 97.9
[2018-01-07 09:00] LABS: Baso % (Auto) 0.6 % (0.0-2.0); Eos # (Auto) 0.2 th/mm3 (0.0-0.4); Eos % (Auto) 3.8 % (0.0-4.0); Hematocrit 42.3 % (35.0-46.0); Hemoglobin 14.9 gm/dL (11.6-15.3); Lymph # (Auto) 1.4 th/mm3 (1.0-4.8); Lymph % (Auto) 23.3 % (9.0-44.0); Mean Corpuscular HGB Conc 35.1 % (32.0-36.0); Mean Corpuscular Hemoglobin 29.9 pg (27.0-34.0); Mean Corpuscular Volume 85.3 fL (80.0-100.0); Mono # (Auto) 0.6 th/mm3 (0.0-0.9); Mono % (Auto) 9.7 % (0.0-8.0); Neut # (Auto) 3.7 th/mm3 (1.8-7.7); Neut % (Auto) 62.6 % (16.0-70.0); Platelet Count 189 th/mm3 (150-450); Red Blood Count 4.96 mil/mm3 (4.00-5.30); Red Cell Distribution Width 14.3 % (11.6-17.2); White Blood Count 5.9 th/mm3 (4.0-11.0)
--- NOTE | 2018-01-07 09:02 | ECG ---
Date Performed: 01/07/2018 Time Performed: 05:43:34 PTAGE: 47 years EKG: Sinus bradycardia Prolonged QT interval Left ventricular hypertrophy Inferior/lateral T wav e changes are probably due to ventricular hypertrophy Abnormal ECG PREVIOUS TRACING : 01/06/2018 19.13 DOCTOR: Alexander Garces Interpretating Date/Time 01/07/2018 09:00:46
[2018-01-07] MEDS: Famotidine 20 MG Tablet PO SCH (09:26)
[2018-01-07] MEDS: hydroCHLOROthiazide 25 MG Tablet PO SCH (09:27)
[2018-01-07] MEDS: amLODIPine 10 MG Tablet PO SCH (09:27)
[2018-01-07] MEDS: Metoprolol Tartrate 25 MG Tablet PO SCH (09:27)
[2018-01-07] MEDS: Lisinopril 20 MG Tablet PO SCH (09:28)
--- NOTE | 2018-01-07 09:47 | P.PNIM ---
Subjective Interval history: Patient reports she is feeling okay today. No chest pain or shortness of breath. Eager to go home. Physical Exam Vital signs: Vital Signs 01/06/18 12:27 01/06/18 18:00 01/06/18 19:00 Temperature 97.5 F L Pulse Rate 54 L 62 66 Respiratory Rate 16 18 Blood Pressure 139/79 175/91 H Pulse Oximetry 98 98 01/06/18 20:00 01/06/18 21:00 01/06/18 22:00 Temperature 97.8 F Pulse Rate 59 L 60 62 Respiratory Rate 16 Blood Pressure 164/100 H Pulse Oximetry 96 01/06/18 23:00 01/06/18 23:45 01/07/18 00:00 Temperature 97.9 F Pulse Rate 62 62 Respiratory Rate 16 Blood Pressure 155/79 H Pulse Oximetry 96 96 01/07/18 01:00 01/07/18 02:00 01/07/18 03:00 Temperature Pulse Rate 56 L 59 L 56 L Respiratory Rate Blood Pressure Pulse Oximetry 01/07/18 04:00 01/07/18 05:00 01/07/18 06:00 Temperature 98 F Pulse Rate 57 L 54 L 57 L Respiratory Rate 16 Blood Pressure 133/78 Pulse Oximetry 98 01/07/18 07:00 01/07/18 07:15 01/07/18 08:00 Temperature Pulse Rate 56 L 58 L 58 L Respiratory Rate Blood Pressure Pulse Oximetry 01/07/18 08:21 01/07/18 09:00 Temperature 97.9 F Pulse Rate 64 67 Respiratory Rate 16 Blood Pressure 134/85 Pulse Oximetry 98 Intake & Output 01/06/18 01/07/18 01/07/18 18:59 06:59 18:59 Intake Total 480 / 480 1000 / 1000 Output Total 1000 / 1000 Balance -520 / -520 1000 / 1000 Weight 106.5 kg Intake: IV 1000 / 1000 Heparin/NS PF Inj 1,500 ML @ 0 mls/hr .ROUTE [facility] Rx#: [id number] Oral 480 / 480 Output: Urine 1000 / 1000 Other: # Bowel Movements 0 Narrative: GENERAL: This is a well-nourished, well-developed patient, in no apparent distress. CARDIOVASCULAR: Normal rate and regular rhythm without murmurs, gallops, or rubs. RESPIRATORY: Good respiratory efforts. Breath sounds equal and clear to auscultation bilaterally. GASTROINTESTINAL: Abdomen soft, non-tender, non-distended. Normal active bowel sounds MUSCULOSKELETAL: Extremities without cyanosis, or edema. NEURO: Alert & Oriented x4 to person, place, time, situation. Moves all ext x4 PSYCH: Appropriate mood and affect. Results - Labs CBC & Chem 7: 01/07/18 07:20 01/07/18 07:20 Laboratory Results - last 24 hr 01/06/18 01/07/18 01/07/18 10:52 07:20 07:20 WBC 5.9 RBC 4.96 Hgb 14.9 Hct 42.3 MCV 85.3 MCH 29.9 MCHC 35.1 RDW 14.3 Plt Count 189 MPV 8.0 Neut % (Auto) 62.6 Lymph % (Auto) 23.3 [place] % (Auto) 9.7 H Eos % (Auto) 3.8 Baso % (Auto) 0.6 Neut # (Auto) 3.7 Lymph # (Auto) 1.4 [place] # (Auto) 0.6 Eos # (Auto) 0.2 Baso # (Auto) 0.0 WBC Differential . Differential Comment Auto diff final Sodium 143 Potassium 3.5 Chloride 105 Carbon Dioxide 29.2 Anion Gap 9 BUN 14 Creatinine 0.98 Estimated GFR 60 L Random Glucose 149 H Calcium 7.9 L Total Creatine Kinase 96 Troponin I Less than 0.02 L Triglycerides 150 Cholesterol 168 LDL Cholesterol, Calc 100 H HDL Cholesterol 38.1 L Cholesterol/HDL Ratio 4.40 Assessment and Plan - Plan 47-year-old female with history of coronary artery disease who presented with unstable angina: Unstable angina/coronary artery disease: The patient underwent heart catheterization which revealed two-vessel coronary artery disease with high- grade proximal right coronary artery stenosis and mid left anterior descending stenosis not severe enough to warrant intervention. Successful drug-eluting stent implantation of the proximal right coronary artery. -The patient will be continued on metoprolol, lisinopril, HCTZ, aspirin and Plavix. - Statins were discontinued due to elevated LFTs. Elevated LFTs: Based on records, the patient has had fluctuating levels of LFTs. She is asymptomatic. Advised outpatient follow-up with GI. Hypertension: Continue home dose antihypertensives. Discharge Planning: Discharge patient to home Condition on discharge: Improved Regular Diet as tolerated Ad Heather activity Rx written: Per med rec Follow-up with primary care physician
--- NOTE | 2018-01-07 10:05 | ECG ---
Date Performed: 01/06/2018 Time Performed: 19:13:28 PTAGE: 47 years EKG: Sinus bradycardia with borderline 1st degree A-V block Inferior T wave changes are nonspeci fic Borderline ECG PREVIOUS TRACING : 01/06/2018 11.14 DOCTOR: Alexander Garces Interpretating Date/Time 01/07/2018 10:03:52
[2018-01-07 12:48] VITALS: PULSE 76
--- NOTE | 2018-01-07 19:26 | ECG ---
Date Performed: 01/06/2018 Time Performed: 11:14:47 PTAGE: 47 years EKG: SINUS BRADYCARDIA WITH FIRST DEGREE AV BLOCK NONSPECIFIC T-WAVE ABNORMALITY PROLONGED QT IN TERVAL ABNORMAL ECG PREVIOUS TRACING : 01/06/2018 06.40 DOCTOR: Alexander Garces Interpretating Date/Time 01/07/2018 19:24:28
== END 2018-01-07 11:29 | disposition home or self-care (01) ==
LOC: NEPC 01:12 → NEDA 01:12 → NEPFCDU 11:18 → NEDA 11:26 → HCIS 15:44
PROVIDERS: ADMIT Family Medicine; ATTEND Family Medicine